=== PATIENT | female | born 1945 | race Caucasian/White ===

== ENCOUNTER → 2016-12-11 11:57 | Outpatient (CLI) | payer MEDICARE, OTHER ==
[2016-06-02 06:23] VITALS: BMI 28.5
[~2016-12-11 11:57] MED LIST: ACETAMINOPHEN500 M1 PO; ALBUTEROL2.5 MG/3 M UPD; AMBIEN10 MG PO; ARICEPT10 MG PO; ASPIRIN 81 MG E81 MG PO; ATARAX 25 MG TA25 MG PO; BAYER CHEWABLE81 MG PO; BENADRYL25 MG PO; BENZONATATE200 MG PO; CALAN SR240 MG PO; CATAPRES TTS-20.2 MG TRANSDERM; CATAPRES0.1 MG PO; CELEXA20 MG PO; COLACE100 MG PO; COUMADIN5 MG PO; DIOVAN160 MG PO; DIOVAN320 MG PO; DONEPEZIL HCL10 M1 PO; EFFEXOR25 MG PO; EFFEXOR50 MG PO; EXFORGE HCT 101 EAC2 PO; EZFE 200200 MG PO; FERROUS SULFAT325 MG PO; FEXOFENADINE HC60 MG PO; FLORAJEN3 CAPS460 MG PO; FLORANEX / LACT1 TAB PO; FLUTICASONE PRO16 GM NASAL; FOLATE0.4 MG PO; FUROSEMIDE20 MG PO; GABAPENTIN100 MG PO; HEPARIN SOD5000 U/ML SQ; HYDROCHLOROTH12.5 M1 PO; K-DUR20 MEQ PO; LASIX INJ40 MG/4 ML IV; LASIX INJ40 MG/4 ML PO; LASIX40 MG PO; LOPRESSOR50 MG PO; MESTINON60 MG PO; MIRALAX17 GM PO; MS CONTIN15 MG PO; MS CONTIN30 MG PO; MUCINEX DM ER1 EAC1 PO; MUCINEX600 MG PO; MULTI-DAY VITAM1 TAB PO; MULTIPLE VITAMI1 TA1 PO; MYRBETRIQ50 MG PO; NAMENDA XR28 MG PO; NEURONTIN 300300 MG PO; NORCO 10/325 TA1 TA1 PO; NORCO 5/325 TAB1 TA1 PO; NORVASC10 MG PO; NORVASC5 MG PO; NYSTATIN15 GM TOPICAL; OXYBUTYNIN CHLOR5 MG PO; OXYCODONE HCL10 MG PO; OXYCONTIN20 MG PO; PEPCID20 MG PO; PLAVIX75 MG PO; PRAVACHOL10 MG PO; PROTONIX40 MG PO; PULMICORT0.5 MG/21 UPD; RESTORIL15 MG PO; ROBAXIN-750750 MG PO; SALINE FLUSH10 ML IJ; SALINE NASAL SP45 ML NASAL; SENOKOT-S TABLE1 TAB PO; SINGULAIR10 MG PO; SYNTHROID50 MCG PO; VALIUM 2 MG TAB2 MG PO; VANCOMYCIN1 GM/2501 IV; ZYVOX PREMIX600 MG IV
== END | disposition home or self-care (01) ==
LOC: D.CT 11:57
DX: I71.4 Abdominal aortic aneurysm, without rupture (principal)

== ENCOUNTER → 2017-01-04 12:05 | Outpatient (CLI) | payer MEDICARE, OTHER ==
[2016-06-02 06:23] VITALS: BMI 28.5
== END | disposition home or self-care (01) ==
LOC: D.CT 12:05
DX: I71.4 Abdominal aortic aneurysm, without rupture (principal)

== ENCOUNTER 2017-01-13 02:03 | Inpatient (IN) | payer MEDICARE, OTHER ==
[~2017-01-13 02:03] MED LIST changes: -ALBUTEROL2.5 MG/3 M UPD; -BENZONATATE200 MG PO; -FEXOFENADINE HC60 MG PO; -FLORAJEN3 CAPS460 MG PO; -FLUTICASONE PRO16 GM NASAL; -K-DUR20 MEQ PO; -LASIX INJ40 MG/4 ML IV; -LASIX40 MG PO; -MS CONTIN30 MG PO; -MUCINEX DM ER1 EAC1 PO; -MYRBETRIQ50 MG PO; -NYSTATIN15 GM TOPICAL; -PROTONIX40 MG PO; -PULMICORT0.5 MG/21 UPD; -SALINE NASAL SP45 ML NASAL; -SINGULAIR10 MG PO
[2017-01-13 02:44] LABS: BASOPHILS 0.1 % (0.0-2.0); HEMATOCRIT 39.1 % (36.0-48.0); HEMOGLOBIN 12.3 g/dL (12-16); IMMATURE GRANULOCYTES 0.2 % (0-5); LYMPHOCYTES 15.9 % (15-50); MCH 29.9 pg (26.0-34.0); MCHC 31.5 g/dL (31.0-37.0); MCV 94.9 fL (80.0-100.0); MEAN PLATELET VOLUME 10.7 fL (7.4-10.4); MONOCYTES 12.2 % (2-11); NEUTROPHILS 70.6 % (40-80); PLATELET COUNT 173 10x3/uL (130-400); RBC 4.12 10x6/uL (4.00-5.40); RDW 14.7 % (11.5-14.5); WBC 10.2 10x3/uL (4.8-10.8)
[2017-01-13 02:59] LABS: ALBUMIN 2.9 g/dL (3.4-5.0); ANION GAP 10.8 mmol/L (8-16); BILIRUBIN - TOTAL 0.4 mg/dL (0.2-1.3); CALCIUM 8.5 mg/dL (8.5-10.1); CARBON DIOXIDE 28.2 mmol/L (21.0-32.0); CREATININE - SERUM 1.5 mg/dL (0.6-1.3); PROTEIN - SERUM 6.7 g/dL (6.4-8.2)
[2017-01-13] MEDS ORDERED: MYRBETRIQ50 MG PO (08:39)
[2017-01-14 04:36] LABS: BASOPHILS 0.1 % (0.0-2.0); EOSINOPHILS 0.1 % (0-7); HEMATOCRIT 36.4 % (36.0-48.0); HEMOGLOBIN 11.7 g/dL (12-16); IMMATURE GRANULOCYTES 0.2 % (0-5); LYMPHOCYTES 4.8 % (15-50); MCH 30.1 pg (26.0-34.0); MCHC 32.1 g/dL (31.0-37.0); MCV 93.6 fL (80.0-100.0); MEAN PLATELET VOLUME 10.8 fL (7.4-10.4); MONOCYTES 11.7 % (2-11); NEUTROPHILS 83.1 % (40-80); PLATELET COUNT 172 10x3/uL (130-400); RBC 3.89 10x6/uL (4.00-5.40); RDW 14.5 % (11.5-14.5); WBC 11.5 10x3/uL (4.8-10.8)
[2017-01-14 04:57] LABS: ALBUMIN 2.7 g/dL (3.4-5.0); ALKALINE PHOSPHATASE 83 U/L (46-116); ALT (SGPT) 14 U/L (10-68); BILIRUBIN - TOTAL 0.48 mg/dL (0.2-1.3); CALCIUM 8.4 mg/dL (8.5-10.1); CARBON DIOXIDE 26.8 mmol/L (21.0-32.0); CHLORIDE - SERUM 101 mmol/L (98-107); CREATININE - SERUM 1.4 mg/dL (0.6-1.3); GLUCOSE 143 mg/dL (74-106); PHOSPHOROUS 2.5 mg/dL (2.5-4.9); POTASSIUM - SERUM 3.9 mmol/L (3.5-5.1); PROTEIN - SERUM 6.9 g/dL (6.4-8.2); SODIUM 137 mmol/L (136-145); eGFR NON AFRICAN AMERICAN 39 mL/min (90-120)
[2017-01-14 04:58] LABS: CALC OSMOLALITY 276 mosm/kg (275-300); TROPONIN-I < 0.017 ng/mL (0.000-0.060); UREA NITROGEN 14 mg/dL (7-18)
[2017-01-15 04:50] LABS: BASOPHILS 0.2 % (0.0-2.0); HEMATOCRIT 34.4 % (36.0-48.0); IMMATURE GRANULOCYTES 0.1 % (0-5); LYMPHOCYTES 8.2 % (15-50); MCH 29.8 pg (26.0-34.0); MCV 93.2 fL (80.0-100.0); MEAN PLATELET VOLUME 10.7 fL (7.4-10.4); NEUTROPHILS 77.5 % (40-80); PLATELET COUNT 172 10x3/uL (130-400); RBC 3.69 10x6/uL (4.00-5.40); RDW 14.6 % (11.5-14.5)
[2017-01-15 05:09] LABS: WBC 8.6 10x3/uL (4.8-10.8)
[2017-01-15 05:32] LABS: ANION GAP 11.4 mmol/L (8-16); CALCIUM 8.3 mg/dL (8.5-10.1); CARBON DIOXIDE 27.3 mmol/L (21.0-32.0); CREATININE - SERUM 1.1 mg/dL (0.6-1.3); PHOSPHOROUS 2.4 mg/dL (2.5-4.9); POTASSIUM - SERUM 3.7 mmol/L (3.5-5.1)
[2017-01-16 05:39] LABS: BASOPHILS 0.2 % (0.0-2.0); EOSINOPHILS 3.3 % (0-7); HEMATOCRIT 35.8 % (36.0-48.0); HEMOGLOBIN 11.2 g/dL (12-16); IMMATURE GRANULOCYTES 0.2 % (0-5); MCH 29.6 pg (26.0-34.0); MCHC 31.3 g/dL (31.0-37.0); MCV 94.5 fL (80.0-100.0); MEAN PLATELET VOLUME 10.7 fL (7.4-10.4); MONOCYTES 13.8 % (2-11); NEUTROPHILS 73.5 % (40-80); PLATELET COUNT 194 10x3/uL (130-400); RBC 3.79 10x6/uL (4.00-5.40); RDW 14.8 % (11.5-14.5)
[2017-01-16 05:41] LABS: WBC 5.1 10x3/uL (4.8-10.8)
[2017-01-16 05:52] LABS: CALCIUM 8.3 mg/dL (8.5-10.1); CARBON DIOXIDE 29.4 mmol/L (21.0-32.0); MAGNESIUM - SERUM 2.2 mg/dL (1.8-2.4); POTASSIUM - SERUM 3.4 mmol/L (3.5-5.1)
[2017-01-16 06:00] LABS: PHOSPHOROUS 3.1 mg/dL (2.5-4.9)
[2017-01-16] MEDS ORDERED: DIOVAN320 MG PO (12:38)
[2017-01-17 03:43] LABS: BASOPHILS 0.2 % (0.0-2.0); EOSINOPHILS 6.6 % (0-7); HEMATOCRIT 36.7 % (36.0-48.0); HEMOGLOBIN 11.5 g/dL (12-16); IMMATURE GRANULOCYTES 0.4 % (0-5); LYMPHOCYTES 14.9 % (15-50); MCH 29.5 pg (26.0-34.0); MCHC 31.3 g/dL (31.0-37.0); MCV 94.1 fL (80.0-100.0); MEAN PLATELET VOLUME 9.9 fL (7.4-10.4); MONOCYTES 14.5 % (2-11); NEUTROPHILS 63.4 % (40-80); PLATELET COUNT 200 10x3/uL (130-400); RDW 14.7 % (11.5-14.5); WBC 4.6 10x3/uL (4.8-10.8)
[2017-01-17 04:11] LABS: ANION GAP 10.8 mmol/L (8-16); CALCIUM 8.2 mg/dL (8.5-10.1); CARBON DIOXIDE 28.4 mmol/L (21.0-32.0); CREATININE - SERUM 0.9 mg/dL (0.6-1.3); POTASSIUM - SERUM 3.2 mmol/L (3.5-5.1)
[2017-01-18 05:42] LABS: BASOPHILS 0.3 % (0.0-2.0); EOSINOPHILS 5.5 % (0-7); HEMATOCRIT 39.5 % (36.0-48.0); HEMOGLOBIN 12.4 g/dL (12-16); IMMATURE GRANULOCYTES 0.3 % (0-5); LYMPHOCYTES 14.1 % (15-50); MCH 29.4 pg (26.0-34.0); MCHC 31.4 g/dL (31.0-37.0); MCV 93.6 fL (80.0-100.0); MEAN PLATELET VOLUME 10.3 fL (7.4-10.4); MONOCYTES 11.1 % (2-11); NEUTROPHILS 68.7 % (40-80); PLATELET COUNT 238 10x3/uL (130-400); RBC 4.22 10x6/uL (4.00-5.40); RDW 14.7 % (11.5-14.5)
[2017-01-18 05:50] LABS: ANION GAP 11.9 mmol/L (8-16); CALCIUM 8.6 mg/dL (8.5-10.1); CARBON DIOXIDE 28.8 mmol/L (21.0-32.0); CREATININE - SERUM 0.9 mg/dL (0.6-1.3); MAGNESIUM - SERUM 2.3 mg/dL (1.8-2.4); PHOSPHOROUS 2.5 mg/dL (2.5-4.9)
[2017-01-18 05:52] LABS: POTASSIUM - SERUM 3.7 mmol/L (3.5-5.1)
[2017-01-19 06:19] LABS: BASOPHILS 0.6 % (0.0-2.0); EOSINOPHILS 7.3 % (0-7); HEMATOCRIT 39.7 % (36.0-48.0); HEMOGLOBIN 12.4 g/dL (12-16); IMMATURE GRANULOCYTES 0.5 % (0-5); LYMPHOCYTES 16.3 % (15-50); MCH 29.5 pg (26.0-34.0); MCHC 31.2 g/dL (31.0-37.0); MCV 94.5 fL (80.0-100.0); MEAN PLATELET VOLUME 9.9 fL (7.4-10.4); NEUTROPHILS 65.3 % (40-80); PLATELET COUNT 233 10x3/uL (130-400); RDW 14.7 % (11.5-14.5)
[2017-01-19 06:28] LABS: WBC 8.3 10x3/uL (4.8-10.8)
[2017-01-19 06:39] LABS: ALBUMIN 2.3 g/dL (3.4-5.0); ANION GAP 10.4 mmol/L (8-16); BILIRUBIN - TOTAL 0.27 mg/dL (0.2-1.3); CALCIUM 8.1 mg/dL (8.5-10.1); CARBON DIOXIDE 30.2 mmol/L (21.0-32.0); CREATININE - SERUM 0.9 mg/dL (0.6-1.3); POTASSIUM - SERUM 3.6 mmol/L (3.5-5.1); PROTEIN - SERUM 6.3 g/dL (6.4-8.2)
[2017-01-20 05:42] LABS: BASOPHILS 0.5 % (0-2); HEMATOCRIT 39.8 % (36.0-48.0); HEMOGLOBIN 12.6 g/dL (12-16); IMMATURE GRANULOCYTES 0.6 % (0-5); LYMPHOCYTES 17.4 % (15-50); MCH 29.7 pg (26.0-34.0); MCHC 31.7 g/dL (31.0-37.0); MCV 93.9 fL (80.0-100.0); MEAN PLATELET VOLUME 9.9 fL (7.4-10.4); MONOCYTES 7.7 % (2-11); NEUTROPHILS 66.8 % (40-80); PLATELET COUNT 244 10x3/uL (130-400); RBC 4.24 10x6/uL (4.00-5.40); RDW 14.8 % (11.5-14.5); WBC 9.4 10x3/uL (4.8-10.8)
[2017-01-20 06:27] LABS: ALBUMIN 2.4 g/dL (3.4-5.0); ANION GAP 9.5 mmol/L (8-16); BILIRUBIN - TOTAL 0.3 mg/dL (0.2-1.3); CALCIUM 8.4 mg/dL (8.5-10.1); CARBON DIOXIDE 30.9 mmol/L (21.0-32.0); CREATININE - SERUM 0.9 mg/dL (0.6-1.3); POTASSIUM - SERUM 3.4 mmol/L (3.5-5.1); PROTEIN - SERUM 6.6 g/dL (6.4-8.2)
[2017-01-21 05:52] LABS: BASOPHILS 0.3 % (0-2); EOSINOPHILS 6.7 % (0-7); HEMATOCRIT 41.2 % (36.0-48.0); HEMOGLOBIN 13.1 g/dL (12-16); IMMATURE GRANULOCYTES 0.6 % (0-5); LYMPHOCYTES 18.8 % (15-50); MCH 29.8 pg (26.0-34.0); MCHC 31.8 g/dL (31.0-37.0); MCV 93.6 fL (80.0-100.0); MONOCYTES 6.6 % (2-11); PLATELET COUNT 253 10x3/uL (130-400); RDW 14.9 % (11.5-14.5); WBC 9.8 10x3/uL (4.8-10.8)
[2017-01-21 06:23] LABS: ALBUMIN 2.5 g/dL (3.4-5.0); ANION GAP 10.9 mmol/L (8-16); BILIRUBIN - TOTAL 0.28 mg/dL (0.2-1.3); CALCIUM 8.5 mg/dL (8.5-10.1); CARBON DIOXIDE 30.8 mmol/L (21.0-32.0); CREATININE - SERUM 0.9 mg/dL (0.6-1.3); POTASSIUM - SERUM 3.7 mmol/L (3.5-5.1); PROTEIN - SERUM 6.9 g/dL (6.4-8.2)
[2017-01-22 06:27] LABS: ALBUMIN 2.8 g/dL (3.4-5.0); ANION GAP 12.7 mmol/L (8-16); BILIRUBIN - TOTAL 0.27 mg/dL (0.2-1.3); CALCIUM 8.6 mg/dL (8.5-10.1); CARBON DIOXIDE 30.4 mmol/L (21.0-32.0); CREATININE - SERUM 0.9 mg/dL (0.6-1.3); POTASSIUM - SERUM 4.1 mmol/L (3.5-5.1); PROTEIN - SERUM 6.7 g/dL (6.4-8.2)
[2017-01-22 06:40] LABS: BASOPHILS 0.2 % (0-2); EOSINOPHILS 6.5 % (0-7); HEMATOCRIT 42.1 % (36.0-48.0); HEMOGLOBIN 13.3 g/dL (12-16); IMMATURE GRANULOCYTES 0.6 % (0-5); LYMPHOCYTES 15.4 % (15-50); MCH 29.6 pg (26.0-34.0); MCHC 31.6 g/dL (31.0-37.0); MCV 93.6 fL (80.0-100.0); MEAN PLATELET VOLUME 10.3 fL (7.4-10.4); MONOCYTES 7.9 % (2-11); NEUTROPHILS 69.4 % (40-80); PLATELET COUNT 246 10x3/uL (130-400); RDW 14.8 % (11.5-14.5); WBC 8.6 10x3/uL (4.8-10.8)
[2017-01-23 06:05] LABS: BASOPHILS 0.4 % (0-2); EOSINOPHILS 7.4 % (0-7); HEMATOCRIT 41.2 % (36.0-48.0); HEMOGLOBIN 13.1 g/dL (12-16); IMMATURE GRANULOCYTES 0.6 % (0-5); LYMPHOCYTES 18.1 % (15-50); MCH 29.5 pg (26.0-34.0); MCHC 31.8 g/dL (31.0-37.0); MCV 92.8 fL (80.0-100.0); MONOCYTES 13.4 % (2-11); NEUTROPHILS 60.1 % (40-80); PLATELET COUNT 237 10x3/uL (130-400); RBC 4.44 10x6/uL (4.00-5.40); WBC 7.2 10x3/uL (4.8-10.8)
[2017-01-23 06:36] LABS: ALBUMIN 2.7 g/dL (3.4-5.0); ANION GAP 10.9 mmol/L (8-16); BILIRUBIN - TOTAL 0.3 mg/dL (0.2-1.3); CALCIUM 8.9 mg/dL (8.5-10.1); CREATININE - SERUM 0.9 mg/dL (0.6-1.3); POTASSIUM - SERUM 3.9 mmol/L (3.5-5.1); PROTEIN - SERUM 7.2 g/dL (6.4-8.2)
[2017-01-24 05:54] LABS: BASOPHILS 0.6 % (0-2); EOSINOPHILS 7.8 % (0-7); HEMATOCRIT 39.8 % (36.0-48.0); HEMOGLOBIN 12.5 g/dL (12-16); IMMATURE GRANULOCYTES 0.6 % (0-5); LYMPHOCYTES 24.8 % (15-50); MCH 29.5 pg (26.0-34.0); MCHC 31.4 g/dL (31.0-37.0); MCV 93.9 fL (80.0-100.0); MEAN PLATELET VOLUME 10.5 fL (7.4-10.4); NEUTROPHILS 53.2 % (40-80); PLATELET COUNT 244 10x3/uL (130-400); RBC 4.24 10x6/uL (4.00-5.40); RDW 15.1 % (11.5-14.5); WBC 6.5 10x3/uL (4.8-10.8)
[2017-01-24 06:15] LABS: ALBUMIN 2.6 g/dL (3.4-5.0); ANION GAP 11.3 mmol/L (8-16); BILIRUBIN - TOTAL 0.27 mg/dL (0.2-1.3); CALCIUM 8.8 mg/dL (8.5-10.1); CARBON DIOXIDE 29.6 mmol/L (21.0-32.0); POTASSIUM - SERUM 3.9 mmol/L (3.5-5.1)
[2017-01-24] MEDS ORDERED: FEXOFENADINE HC60 MG PO (12:57)
[2017-01-24] MEDS ORDERED: ALBUTEROL2.5 MG/3 M UPD ×2 (12:57)
[2017-01-24] MEDS ORDERED: MUCINEX DM ER1 EAC1 PO (12:59)
[2017-01-24] MEDS ORDERED: LASIX INJ40 MG/4 ML IV (12:59)
[2017-01-24] MEDS ORDERED: SINGULAIR10 MG PO (12:59)
[2017-01-24] MEDS ORDERED: BENZONATATE200 MG PO (13:00)
[2017-01-24] MEDS ORDERED: PROTONIX40 MG PO (13:00)
[2017-01-24] MEDS ORDERED: FLUTICASONE PRO16 GM NASAL (13:00)
[2017-01-24] MEDS ORDERED: SALINE NASAL SP45 ML NASAL (13:00)
[2017-01-24] MEDS ORDERED: MIRALAX17 GM PO (13:00)
[2017-01-24] MEDS ORDERED: FLORAJEN3 CAPS460 MG PO (13:00)
[2017-01-24] MEDS ORDERED: PULMICORT0.5 MG/21 UPD (13:00)
[2017-01-24] MEDS ORDERED: ARICEPT10 MG PO (13:01)
[2017-01-24] MEDS ORDERED: NYSTATIN15 GM TOPICAL (13:01)
[2017-01-24] MEDS ORDERED: MS CONTIN30 MG PO (14:52)
[2017-01-24] MEDS ORDERED: LASIX40 MG PO (17:25)
== END 2017-01-24 19:00 | DRG 189 ==
LOC: D.ER 02:03 → D.ICU 06:33 → D.MS 01-17 19:49
PROVIDERS: Emergency Medicine; Family Medicine; ADMIT Emergency Medicine
PROC: 0T9B70Z Drainage of Bladder with Drainage Device, Via Natural or Artificial Opening (ICD-10-PCS; principal; 2017-01-13)
PROC: 02HV33Z Insertion of Infusion Device into Superior Vena Cava, Percutaneous Approach (ICD-10-PCS; 2017-01-13)
DX: J96.01 Acute respiratory failure with hypoxia (principal); J15.4 Pneumonia due to other streptococci; J44.0 Chronic obstructive pulmonary disease with (acute) lower respiratory infection; J44.1 Chronic obstructive pulmonary disease with (acute) exacerbation; I13.0 Hypertensive heart and chronic kidney disease with heart failure and stage 1 through stage 4 chronic kidney disease, or unspecified chronic kidney disease; J98.11 Atelectasis; F41.9 Anxiety disorder, unspecified; F32.9 Major depressive disorder, single episode, unspecified; N18.9 Chronic kidney disease, unspecified; I50.9 Heart failure, unspecified; I25.10 Atherosclerotic heart disease of native coronary artery without angina pectoris; Z95.5 Presence of coronary angioplasty implant and graft; G70.00 Myasthenia gravis without (acute) exacerbation; B37.2 Candidiasis of skin and nail; I95.9 Hypotension, unspecified; E03.9 Hypothyroidism, unspecified; K21.9 Gastro-esophageal reflux disease without esophagitis; I65.23 Occlusion and stenosis of bilateral carotid arteries; I08.1 Rheumatic disorders of both mitral and tricuspid valves; I27.2 Other secondary pulmonary hypertension; Z86.718 Personal history of other venous thrombosis and embolism; Z86.73 Personal history of transient ischemic attack (TIA), and cerebral infarction without residual deficits; Z86.711 Personal history of pulmonary embolism; E87.6 Hypokalemia

== ENCOUNTER 2017-01-24 19:00 | Inpatient (IN) | payer MEDICARE, OTHER ==
[~2017-01-24] VITALS: Ht 168.9 cm; Wt 92.1 kg
[~2017-01-24 19:00] MED LIST changes: +ALBUTEROL2.5 MG/3 M UPD; +BENZONATATE200 MG PO; +FEXOFENADINE HC60 MG PO; +FLORAJEN3 CAPS460 MG PO; +FLUTICASONE PRO16 GM NASAL; +LASIX INJ40 MG/4 ML IV; +LASIX40 MG PO; +MS CONTIN30 MG PO; +MUCINEX DM ER1 EAC1 PO; +MYRBETRIQ50 MG PO; +NYSTATIN15 GM TOPICAL; +PROTONIX40 MG PO; +PULMICORT0.5 MG/21 UPD; +SALINE NASAL SP45 ML NASAL; +SINGULAIR10 MG PO
--- NOTE | 2017-01-24 19:10 | NUR ---
PT. HAS JUST ARRIVED FROM MED/SURG UNIT. EXPLAINED ADMIT PROCESS AND THAT I WOULD BE DOING HER ADMISSION ASSESSMENT AFTER ADMIT PAPERS ARE SIGNED. PT. ASKED WHEN THAT WOULD BE AND I EXPLAINED THAT IT WOULD BE AFTER THE ADMISSION OFFICE GOT HER ADMITTED TO OUR UNIT IN THE COMPUTER. PT. STATED SHE UNDERSTOOD. CALL LIGHT WITHIN REACH.
[2017-01-24 20:16] VITALS: BP 150/90
[2017-01-24 20:54] VITALS: BP 150/90; BMI 32.2
--- NOTE | 2017-01-24 23:05 | NUR ---
PT. IN BED WITH HOB UP FOR COMFORT WITH EYES CLOSED AND RESP. DEEP AND EVEN. CALL LIGHT WITHIN REACH.
[2017-01-24 23:48] VITALS: BP 150/90; Ht 168.9 cm; Wt 92.1 kg
--- NOTE | 2017-01-25 01:10 | NUR ---
PT. IN BED WITH HOB UP FOR COMFORT LYING ON HER LEFT SIDE WITH EYES CLOSED AND RESP. EVEN. CALL LIGHT WITHIN REACH.
[2017-01-25 07:14] LABS: BASOPHILS 0.2 % (0-2); EOSINOPHILS 5.6 % (0-7); HEMATOCRIT 41.8 % (36.0-48.0); HEMOGLOBIN 13.1 g/dL (12-16); IMMATURE GRANULOCYTES 0.4 % (0-5); MCH 29.5 pg (26.0-34.0); MCHC 31.3 g/dL (31.0-37.0); MCV 94.1 fL (80.0-100.0); MONOCYTES 7.3 % (2-11); NEUTROPHILS 64.5 % (40-80); PLATELET COUNT 217 10x3/uL (130-400); RBC 4.44 10x6/uL (4.00-5.40); RDW 14.7 % (11.5-14.5)
[2017-01-25 07:18] LABS: WBC 9.4 10x3/uL (4.8-10.8)
[2017-01-25 07:25] LABS: ANION GAP 9.4 mmol/L (8-16); CALCIUM 8.8 mg/dL (8.5-10.1); CARBON DIOXIDE 30.3 mmol/L (21.0-32.0); CREATININE - SERUM 1.1 mg/dL (0.6-1.3); POTASSIUM - SERUM 3.7 mmol/L (3.5-5.1)
--- NOTE | 2017-01-25 09:40 | NUR ---
PATIENT ADMITTED TO REHAB . DR. WILKINSON IS PATIENT PCP, SHE USES [facility]. PATIENT HAS WHEELCHAIR, BSC AND WALK IN TUB. SHE IS OF [place] AND SHE IS . PLANS ARE FOR HER TO RETURN HOME WITH HER SPOUSE. SHE HAS USED [facility] FOR HOME [facility]ALTH. WILL CONTINUE TO FOLLOW WITH PATIENT UNTIL DISCHARGED
[2017-01-25 18:54] VITALS: BP 178/93
--- NOTE | 2017-01-25 20:10 | NUR ---
CHINCHILLA UNCLAMPED, ALLOWED TIME FOR BLADDER TO DRAIN. PT DENIES PAIN. RECLAMPED CHINCHILLA. RESPIRATIONS SHALLOW, ENCOURAGED COUGHING AND DEEP BREATHING.
--- NOTE | 2017-01-26 01:38 | NUR ---
PT RESTING WITH EYES CLOSED, CHINCHILLA RECLAMPED AT 1230.
--- NOTE | 2017-01-26 04:30 | NUR ---
CHINCHILLA UNCLAMPED, URING DRAINING TO GRAVITY, PT RESTING WITH EYES CLOSED, RESPIRATION REGULAR AND UNLABORED.
--- NOTE | 2017-01-26 06:57 | NUR ---
RESTING QUIETLY IN BED CALL LIGHT IN REACH
[2017-01-26 07:20] LABS: BASOPHILS 0.3 % (0-2); EOSINOPHILS 5.5 % (0-7); HEMATOCRIT 40.8 % (36.0-48.0); HEMOGLOBIN 12.6 g/dL (12-16); IMMATURE GRANULOCYTES 0.1 % (0-5); LYMPHOCYTES 24.5 % (15-50); MCH 29.1 pg (26.0-34.0); MCHC 30.9 g/dL (31.0-37.0); MCV 94.2 fL (80.0-100.0); MEAN PLATELET VOLUME 10.4 fL (7.4-10.4); MONOCYTES 8.2 % (2-11); NEUTROPHILS 61.4 % (40-80); PLATELET COUNT 245 10x3/uL (130-400); RBC 4.33 10x6/uL (4.00-5.40); RDW 14.7 % (11.5-14.5); WBC 7.1 10x3/uL (4.8-10.8)
[2017-01-26 07:31] LABS: ANION GAP 12.1 mmol/L (8-16); CALCIUM 8.8 mg/dL (8.5-10.1); CARBON DIOXIDE 29.5 mmol/L (21.0-32.0); CREATININE - SERUM 0.9 mg/dL (0.6-1.3); POTASSIUM - SERUM 3.6 mmol/L (3.5-5.1)
--- NOTE | 2017-01-26 08:59 | RHP ---
PATIENT: SHARIF GRANT MEDICAL RECORD: [id number] ACCOUNT: [id number] LOCATION:[id number] : 45 ADMISSION DATE: 01/24/17 REHABILITATION HISTORY AND PHYSICAL EXAMINATION POST ADMISSION PHYSICIAN EXAMINATION Post-Admission Physical Examination and History and Physical DATE OF ADMISSION TO REHAB: 01/24/2017 ADMITTING DIAGNOSES: Community-acquired pneumonia in the right lower lobe and left upper lobe and streptococcal agalactiae. HISTORY OF PRESENT ILLNESS: The patient is admitted to inpatient rehab for community-acquired pneumonia in the right lower lobe and left upper lobe. She is a 71-year-old female patient, who developed cough, dyspnea and fever a couple days prior to acute admission to the hospital on January 13. She presented to the ED via EMS, was found to be hypotensive. On chest x-ray, she had a right lower lobe and left upper lobe pneumonia. She was placed on BiPAP secondary to hypoxia. She was started on vasopressors also for hypotension, admitted to the ICU. She lives at home with her , is independent with ADLs and mobility. She is moderately independent with her mobility. She is wheelchair bound, but transfer at moderately independent to a chair. She is weak and currently requires standby assistance to moderate assistance for ADLs and moderate assist to max assist for transfers and mobility. She and her is planning her returning home back to her prior level of functioning or better if possible. COMORBIDITIES: In this patient include oropharyngeal dysphagia, acute hypoxic respiratory failure, COPD, bilateral pleural effusions, hypotension, coronary artery disease, myasthenia gravis, atelectasis, got a history of mild CHF, chronic kidney disease, hypothyroidism, anemia, hypokalemia, debility and she is an ex-smoker. PAST MEDICAL HISTORY: Significant for a CVA with left-sided weakness, myasthenia gravis, hypertension, coronary artery disease, she has had stent placement in the past, and COPD. She has got a history of DVT and PE with IVC filter placement, gastroesophageal reflux disease, anxiety, depression, peripheral arterial disease, and chronic bronchitis. PAST SURGICAL HISTORY: Includes hysterectomy, right total knee times 2, right arm surgery, she has had bilateral carotids. She has had a total abdominal hysterectomy, left vein stripping, bilateral laser on the legs, right breast biopsy, bunion to her right foot, Karly shunt, inguinal hernia, and carotid endarterectomy. ALLERGIES: MEPERIDINE, ROCEPHIN, VANCOMYCIN, LISINOPRIL, PROCARDIA, ZOLOFT, IODINATED DYE AND ASPIRIN. CURRENT MEDICATIONS: Include Pravachol 10 mg daily. She is on Protonix 40 mg daily, multivitamin daily, Synthroid 50 mcg daily, Floranex 460 mg daily. She is on Lasix 40 mg daily, folic acid 0.8 mg daily, Flonase nasal spray 2 sprays daily, ferrous sulfate 325 mg daily, Plavix 75 mg daily, citalopram 20 mg daily, aspirin chewable 81 mg daily, amlodipine 10 mg daily, Effexor 150 mg b.i.d., Restoril 30 mg q.h.s., saline nasal spray ____ q.i.d. She is on Mestinon or pyridostigmine 90 mg t.i.d., MiraLax 17 grams in 8 ounces of water daily b.i.d., HISTORY AND PHYSICAL [id number] SHARIF GRANT Mycostatin cream as needed, and morphine CR 30 mg b.i.d. She is on Singulair 10 mg q.h.s., Mucinex b.i.d., Neurontin 200 mg t.i.d., Brittney 60 mg b.i.d., Aricept 20 mg q.h.s., Pulmicort 0.5 mg b.i.d., and Tessalon Perles 200 mg t.i.d. p.r.n. cough. She is on Ventolin updrafts as needed for shortness of breath. HABITS: Does have a history of tobacco use years ago. No alcohol use. FAMILY HISTORY: Noncontributory. SOCIAL HISTORY: The patient hopes to return back home and get back to her prior level of functioning or improved if possible with her . REVIEW OF SYSTEMS: GENERAL: Does complain of weakness. HEENT: Denies cold, cough or congestion at this time. CARDIOVASCULAR: Denies any chest pain. LUNGS: Does complain of a little bit shortness of breath with activity. PHYSICAL EXAMINATION: GENERAL: A morbidly obese female, in no acute distress, alert upon exam. HEENT: Normocephalic and atraumatic. Mucosa moist. NECK: Supple. No lymphadenopathy. LUNGS: Coarse breath sounds especially in the bases. CARDIOVASCULAR: Regular rate and rhythm. ABDOMEN: Benign. EXTREMITIES: Does have a little peripheral edema and noted weakness. NEUROLOGIC: The patient does have some confusion, but is easily redirected, does have noted weakness in both legs. LABORATORY DATA: White count is 9.4, H&H 13 and 41 and platelet count was noted to be 217. Her sodium is 142, potassium 3.7, BUN and creatinine of 19 and 1.1 and blood sugar was noted to be 108. ASSESSMENT: This is a 71-year-old female patient. who is admitted to rehab with a working diagnosis of community-acquired pneumonia in the right lower lobe and left upper lobe, also with noted muscular weakness and debility from being in the ICU with critical illness myopathy. The patient has potential to make improvement. The patient will need at least 2 of the following multidisciplinary therapies including to, but not limited to physical, occupational, respiratory, speech, nutritional services, prosthetics and orthotics. Given her complex condition and risk for medical complications, rehabilitation services cannot be provided at a low level of care such as a alf facility. PLAN: 1. Admit to [facility] rehab for intensive inpatient therapy to include the following disciplines: A. Physical therapy to improve gait, all transfer skills and bed mobility to a modified independent level. B. Occupational therapy to improve activities of daily living to a modified independent level. C. Case management to assist with discharge planning and placement options. D. Nutrition to assist with nutritional needs. E. Rehabilitation nursing to assist in monitoring the patient's underlying medical conditions and to assist with any type of bowel or bladder management. HISTORY AND PHYSICAL [id number] SHARIF GRANT 2. The patient's current medication and medical care will be continued. 3. The patient will be placed on standard fall precautions. 4. We will work with physical therapy, her transfers back to moderately independent. 5. We will discuss this patient during care team staff meeting this week. TRANSINT:[id number] Voice Confirmation ID: [id number] DOCUMENT ID: [id number] TICO OSMAN MD at 0859 CC: [id number] DICTATION DATE: 01/25/17 0758 DRIVER/REFUSE COLLECTOR: 01/25/17 1125 [place] [address]
--- NOTE | 2017-01-26 09:00 | NUR ---
PT NOTED IN BED. CHINCHILLA IS CLAMPED. PT HAS BEEN INCONT. OF A LARGE AMOUNT OF URINE. SHE DENIES HAVING ANY URGE TO VOID. INC. CARE GIVEN BY OT, AND NEW SCRUBS DONNED, BEFORE BEING TAKEN TO THERAPY GYM.
--- NOTE | 2017-01-26 10:06 | NUR ---
PT IS PARTICIPATING IN THERAPY AT THIS TIME. NO ACUTE DISTRESS NOTED.
[2017-01-26 10:41] VITALS: BP 159/89
--- NOTE | 2017-01-26 14:05 | NUR ---
PT IS RESTING IN BED BETWEEN THERAPY. NO NEEDS VOICED.
--- NOTE | 2017-01-26 17:26 | NUR ---
PT IS RESTING IN BED FEEDING SELF SUPPER WITHOUT DIFFICULTY. NO NEEDS VOICED.
[2017-01-26 18:52] VITALS: BP 126/71
--- NOTE | 2017-01-26 23:55 | NUR ---
CHINCHILLA CATH UNCLAMPED AND CLAMPED. PT RESTING QUIETLY, EYES CLOSED, NO S/S OF ACUTE DISTRESS.
--- NOTE | 2017-01-27 03:53 | NUR ---
PT RESTING QUIETLY, EYES CLOSED RESPIRATIONS REGULAR AND UNLABORED. NO S/S OF ACUTE DISTRESS.
--- NOTE | 2017-01-27 04:04 | NUR ---
CHINCHILLA CATH CLAMPED AND UNCLAMPED.
--- NOTE | 2017-01-27 05:36 | NUR ---
PT RESTING QUIELTY, EMPTIED CHINCHILLA, PT EYES REMAINED CLOSED.
--- NOTE | 2017-01-27 05:38 | NUR ---
UNCLAMPED, THEN RECLAMPED CHINCHILLA CATHETER BAG
[2017-01-27 07:00] VITALS: BP 174/74
--- NOTE | 2017-01-27 07:30 | NUR ---
PT IS UP IN THE GYM WITH THERAPY AT THIS TIME. NO ACUTE DISTRESS NOTED. BED CHANGED OUT.
--- NOTE | 2017-01-27 09:40 | NUR ---
PT IS RESTING IN BED AFTER THERAPY. NO NEEDS VOICED. ASSISTED TO BATHROOM PRN.
--- NOTE | 2017-01-27 12:44 | NUR ---
PT IS FEEDING SELF LUNCH IN HER ROOM. NO COMPLAINT VOICED.
--- NOTE | 2017-01-27 15:00 | NUR ---
PT IS PARTICIPATING IN THERAPY AT THIS TIME.
--- NOTE | 2017-01-27 18:05 | NUR ---
PT IS RESTING IN BED AFTER SUPPER. NO NEEDS VOICED.
--- NOTE | 2017-01-27 18:27 | NUR ---
RESTING QUIETLY IN BED CALL LIGHT IN REACH
[2017-01-27 19:14] VITALS: BP 157/76
--- NOTE | 2017-01-27 20:14 | NUR ---
PT RESTING QUIETLY IN ROOM, RESPIRATIONS REGULAR AND UNLABORED, NO S/S OF ACUTE DISTRESS. DENIES NEEDS.
--- NOTE | 2017-01-28 01:05 | NUR ---
ASSISTED PT TO BATHROOM VIA W/C, SLIGHT STRESS URINARY INCONTINENCE, BRIEF CHANGED. PT CONVERSIVE, PLEASANT. DENIES ANY NEEDS AT THIS TIME.
--- NOTE | 2017-01-28 04:14 | NUR ---
PT RESTING QUIETLY IN BED, RESPIRATIONS REGULAR AN UNLABORED.
--- NOTE | 2017-01-28 05:43 | NUR ---
ASSISTED PT TO BATHROOM, SATURATED IN URINE, VOIDED PER TOILET. MIN ASSIST WITH TRANSFER, MOD ASSIST WITH LOWER DRESSING, MOD ASSIST WITH UPPER DRESSING. FATIQUES WITH ACTIVITY
[2017-01-28 07:00] VITALS: BP 166/80
--- NOTE | 2017-01-28 07:30 | NUR ---
PT IS RESTING IN BED WITH EYES CLOSED. AWOKE EASILY TO VERBAL STIMULI. ALERT AND ORIENTED X 4. 02 IS ON @ 3LPM PER NC. NO SOB NOTED. SR'S ARE UP X 2 IN BED. CALL LIGHT AND BEDSIDE TABLE ARE WITHIN EASY REACH.
--- NOTE | 2017-01-28 09:49 | NUR ---
PT IS RESTING IN BED WITH EYES CLOSED.
--- NOTE | 2017-01-28 12:00 | NUR ---
PT IS FEEDING SELF LUNCH IN HER ROOM. NO NEEDS VOICED.
--- NOTE | 2017-01-28 14:54 | NUR ---
PT IS RESTING IN BED VISITING WITH HER . NO NEEDS VOICED.
--- NOTE | 2017-01-28 17:22 | NUR ---
PT IS FEEDING SELF SUPPER. NO DIFFICULTY NOTED. SPOUSE AT BEDSIDE.
--- NOTE | 2017-01-28 19:28 | NUR ---
PT RESTING IN SUPINE POSITION, RESTING QUIETLY, NO S/S OF ACUTE DISTRESS. RESPIRATIONS REGULAR AND UNLABORED.
[2017-01-28 19:34] VITALS: BP 152/89
--- NOTE | 2017-01-28 21:30 | NUR ---
PT STATES THAT PT REALLY HURTSAND SHE JUST WANTS TO DO WHAT THEY SAY SO SHE CAN GET OUT OF HERE. WILL LEAVE MESSAGE FOR PHYSICIAN REGARDING PAIN MANAGEMENT TO INCREASE TOLERANCE WITH PAIN DURING THERAPY.
--- NOTE | 2017-01-28 23:05 | NUR ---
PT INCONTINENT OF LARGE AMOUNT OF URINE, ASSISTED TO BATHROOM WITH MOD ASSIST,
--- NOTE | 2017-01-29 03:12 | NUR ---
PT RESTING QUIETLY, NO S/S OF ACUTE DISTRESS.
--- NOTE | 2017-01-29 06:59 | NUR ---
ASSISTED PT TO BATHROOM, PT HAD A BM THIS MORNING, PT IS CONCERNED ABOUT THE LOOSE STOOLS. DENIES ANY OTHER NEEDS.
--- NOTE | 2017-01-29 07:00 | NUR ---
PT WAS RECEIVED IN BED AWAKE AND ORIENTED X 3 AT THE BEGINNING OF THIS SHIFT. VITAL SIGNS; TEMP. 98.4, PULSE 73, RESP. 16, B/P 186/94, 02SAT. 93%. WILL BE MONITORING PT. AND ASSISTING PRN WITH ADL'S. CALL LIGHT IS IN REACH.
[2017-01-29 07:06] LABS: BASOPHILS 0.5 % (0-2); EOSINOPHILS 5.5 % (0-7); HEMATOCRIT 39.1 % (36.0-48.0); HEMOGLOBIN 12.3 g/dL (12-16); IMMATURE GRANULOCYTES 0.2 % (0-5); LYMPHOCYTES 19.7 % (15-50); MCH 29.4 pg (26.0-34.0); MCHC 31.5 g/dL (31.0-37.0); MCV 93.5 fL (80.0-100.0); MEAN PLATELET VOLUME 10.1 fL (7.4-10.4); MONOCYTES 10.6 % (2-11); NEUTROPHILS 63.5 % (40-80); PLATELET COUNT 245 10x3/uL (130-400); RBC 4.18 10x6/uL (4.00-5.40); RDW 14.4 % (11.5-14.5); WBC 6.6 10x3/uL (4.8-10.8)
[2017-01-29 07:19] LABS: ANION GAP 11.3 mmol/L (8-16); CALCIUM 8.9 mg/dL (8.5-10.1); CARBON DIOXIDE 31.7 mmol/L (21.0-32.0); CREATININE - SERUM 0.9 mg/dL (0.6-1.3)
[2017-01-29 08:47] VITALS: BP 186/94
--- NOTE | 2017-01-29 14:14 | NUR ---
DR. OSMAN ROUNDED THIS AM AND NEW ORDER RECEIVED FOR BREAKTHROUGH PAIN MEDICATION. NORCO 10MG WAS GIVEN AROUND 12:45PM PER REQUEST FOR ALL OVER DISCOMFORT. HER MIRALAX WAS HELD THIS AM DUE TO HAVING SEVERAL LOOSE STOOLS THE PAST FEW DAYS. PT AND HER ARE VISITING AT THIS TIME. PT. IS SITTING UP IN WHEELCHAIR IN ROOM. NO VOICED COMPLAINTS AT THIS TIME. WILL CONTINUE TO OBSERVE.
--- NOTE | 2017-01-29 18:31 | NUR ---
PT IS BACK TO BED AFTER GOING TO THE BATHROOM WITH ASSIST. CALL LIGHT IS IN REACH. 02PER NC BACK ON HER AT 3L/MIN. NO DISTRESS OR DISCOMFORT NOTED. PT STATES HER NAUSEA WENT AWAY AFTER TAKING THE ZOFRAN EARLIER.
[2017-01-29 18:43] VITALS: BP 166/84
--- NOTE | 2017-01-29 23:19 | NUR ---
PT RECEIVED IN BED WITH EYES OPEN WATCHING TV. STANDBY ASSIST GIVEN TO WHEELCHAIR AND TOILET. RETURNED TO BED. COMPLAINS OF 10/10 PAIN TO RIGHT KNEE. NO SIGN OF DISTRESS NOTED. PRN PAIN MEDICATION GIVEN. NO OTHER NEEDS MADE KNOWN AT THIS TIME. CALL LIGHT IN REACH. WILL CONTINUE TO OBSERVE.
--- NOTE | 2017-01-29 23:47 | NUR ---
PT IN BED WITH EYES CLOSED AND CHEST RISING. RECEIVED ALL MEDICATIONS PER MAR WITHOUT DIFFICULTY. ASSISTED TO RESTROOM. NO OTHER CONCERNS MADE KNOWN. CALL LIGHT IN REACH. WILL CONTINUE TO OBSERVE.
--- NOTE | 2017-01-30 02:39 | NUR ---
PT IN BED WITH EYES CLOSED AND CHEST RISING. NO SIGN/SYMPTOMS OF DISTRESS NOTED. CALL LIGHT IN REACH. WILL CONTINUE TO OBSERVE.
[2017-01-30 09:09] VITALS: BP 174/94
--- NOTE | 2017-01-30 19:55 | NUR ---
PT RESTING IN BED WATCHING TV. PT ON O2 AT 3L. PT STATES SHE HAS CHRONIC KNEE PAIN 04/09. PT DENIES NEEDS AT THIS TIME. BED LOW. CL IN REACH.
[2017-01-30 20:49] VITALS: BP 134/79
--- NOTE | 2017-01-30 22:00 | NUR ---
PT HS MEDS ADMINISTERED. PT ASSISTED TO BR. PT BACK IN BED AND DENIES FURTHER NEEDS. WCTM. BED LOW. CLIN REACH.
--- NOTE | 2017-01-30 23:39 | NUR ---
PT RESTING, EYES CLOSED. BED LOW. CL IN REACH.
--- NOTE | 2017-01-31 03:26 | NUR ---
PT RESTING, EYES CLOSED. RR ARE EVEN AND UNLABORED. WCTM. BED LOW. CL IN REACH.
--- NOTE | 2017-01-31 06:08 | NUR ---
PT AM MEDS ADMINISTERED. PT DENIES FURHTER NEEDS. BED LOW. CL INR EACH.
--- NOTE | 2017-01-31 07:03 | NUR ---
RESTING QUIETLY IN BED CALL LIGHT IN REACH
[2017-01-31 08:06] LABS: ANION GAP 8.2 mmol/L (8-16); CARBON DIOXIDE 33.1 mmol/L (21.0-32.0); POTASSIUM - SERUM 3.3 mmol/L (3.5-5.1)
[2017-01-31 08:08] LABS: BASOPHILS 0.2 % (0-2); EOSINOPHILS 4.1 % (0-7); HEMATOCRIT 40.6 % (36.0-48.0); HEMOGLOBIN 12.8 g/dL (12-16); IMMATURE GRANULOCYTES 0.2 % (0-5); LYMPHOCYTES 22.9 % (15-50); MCH 29.4 pg (26.0-34.0); MCHC 31.5 g/dL (31.0-37.0); MCV 93.3 fL (80.0-100.0); MEAN PLATELET VOLUME 10.6 fL (7.4-10.4); MONOCYTES 12.7 % (2-11); NEUTROPHILS 59.9 % (40-80); PLATELET COUNT 265 10x3/uL (130-400); RBC 4.35 10x6/uL (4.00-5.40); RDW 14.7 % (11.5-14.5); WBC 6.6 10x3/uL (4.8-10.8)
[2017-01-31] MEDS ORDERED: K-DUR20 MEQ PO (08:54)
--- NOTE | 2017-01-31 09:38 | NUR ---
PT IS RESTING IN BED WITH EYES OPEN. NO NEEDS VOICED. PT ANXIOUS TO DC HOME TODAY.
--- NOTE | 2017-01-31 10:17 | NUR ---
PATIENT DISCHARGING HOME WITH SPOUSE. [facility] WILL FOLLOW WITH PATIENT AT HOME. NO NEW DME NEEDED. PATIENT HAS WALKER, WHEELCHAIR AND SHOWER CHAIR AT HOME. DR. WILKINSON 02/07/17 @ 3:00. PATIENT CHOICE FORM FOR HOME HEALTH AND [facility] FORM SIGNED , EXPLAINED AND FILED IN CHART. PATIENT EDUCATED ON DEEP BREATHING EXERCISES, PATIENT VOICED UNDERSTANDING. ORDERES FAXED TO [facility] WITH CONFORMATION RECIEVED
--- NOTE | 2017-01-31 11:19 | NUR ---
DC INSTRUCTIONS GIVEN TO PT AND SPOUSE WITH VERBAL UNDERSTANDING VOICED. NEEDED MEDS CALLED TO [facility]. SPOKE WITH ANAIS.
--- NOTE | 2017-01-31 11:36 | NUR ---
PT DC'D TO HOME WITH ALL BELONGINGS. DEPARTED UNIT VIA WC PROPELLED BY STAFF. DEPARTED GROUNDS VIA POV DRIVEN BY HER SPOUSE.
== END 2017-01-31 11:37 | disposition home health service (06) | DRG 193 ==
LOC: D.REHAB 19:00
PROVIDERS: ADMIT Emergency Medicine
DX: J13 Pneumonia due to Streptococcus pneumoniae (principal); J96.01 Acute respiratory failure with hypoxia; J90 Pleural effusion, not elsewhere classified; R13.12 Dysphagia, oropharyngeal phase; J44.9 Chronic obstructive pulmonary disease, unspecified; I95.9 Hypotension, unspecified; I25.10 Atherosclerotic heart disease of native coronary artery without angina pectoris; G70.00 Myasthenia gravis without (acute) exacerbation; N18.9 Chronic kidney disease, unspecified; E03.9 Hypothyroidism, unspecified; D64.9 Anemia, unspecified; R53.81 Other malaise; Z87.891 Personal history of nicotine dependence; I71.4 Abdominal aortic aneurysm, without rupture; I65.23 Occlusion and stenosis of bilateral carotid arteries

== ENCOUNTER → 2017-02-19 08:31 | Outpatient (CLI) | payer MEDICARE, OTHER ==
[2017-01-24 23:48] VITALS: BMI 32.2
[~2017-02-19 08:31] MED LIST changes: +K-DUR20 MEQ PO
== END ==
LOC: D.MAMMO 08:31
DX: R92.8 Other abnormal and inconclusive findings on diagnostic imaging of breast (principal)

== ENCOUNTER 2017-05-19 13:53 | Inpatient (IN) | payer MEDICARE, OTHER ==
[~2017-05-19] VITALS: Ht 168.9 cm; Wt 98.2 kg
[~2017-05-19 13:53] MED LIST changes: -GABAPENTIN100 MG PO
[2017-05-19 14:45] LABS: BASOPHILS 0.1 % (0-2); EOSINOPHILS 0.2 % (0-7); HEMATOCRIT 44.6 % (36.0-48.0); HEMOGLOBIN 13.9 g/dL (12-16); IMMATURE GRANULOCYTES 0.2 % (0-5); LYMPHOCYTES 5.6 % (15-50); MCH 29.4 pg (26.0-34.0); MCHC 31.2 g/dL (31.0-37.0); MCV 94.3 fL (80.0-100.0); MEAN PLATELET VOLUME 10.6 fL (7.4-10.4); MONOCYTES 6.1 % (2-11); NEUTROPHILS 87.8 % (40-80); PLATELET COUNT 204 10x3/uL (130-400); RBC 4.73 10x6/uL (4.00-5.40); RDW 15.5 % (11.5-14.5); WBC 12.5 10x3/uL (4.8-10.8)
[2017-05-19 14:49] LABS: APPEARANCE CLEAR (CLEAR); BILIRUBIN NEGATIVE (NEGATIVE); COLOR YELLOW (YELLOW); GLUCOSE NEGATIVE (NEGATIVE); KETONE NEGATIVE (NEGATIVE); LEUKOCYTE ESTERASE NEGATIVE (NEGATIVE); NITRITE NEGATIVE (NEGATIVE); PROTEIN NEGATIVE (NEGATIVE); UROBILINOGEN NORMAL (NORMAL)
[2017-05-19 14:51] LABS: ALBUMIN 3.1 g/dL (3.4-5.0); ANION GAP 12.4 mmol/L (8-16); BILIRUBIN - TOTAL 0.53 mg/dL (0.2-1.3); CALCIUM 8.2 mg/dL (8.5-10.1); CARBON DIOXIDE 28.7 mmol/L (21.0-32.0); CREATININE - SERUM 1.5 mg/dL (0.6-1.3); POTASSIUM - SERUM 4.1 mmol/L (3.5-5.1); PROTEIN - SERUM 6.8 g/dL (6.4-8.2)
--- NOTE | 2017-05-19 17:04 | NUR ---
TRANSFER FROM ER BY STRETCHER. OREINTED TO ROOM. CALL LIGHT IN REACH. WILL CONT. PLAN OF CARE.
[2017-05-19 17:23] VITALS: BP 130/72; BMI 34.4
[2017-05-19] MEDS ORDERED: ROBAXIN-750750 MG PO (17:31)
[2017-05-19] MEDS ORDERED: PRAVASTATIN SOD10 MG PO (17:32)
[2017-05-19] MEDS ORDERED: NAMENDA XR28 MG PO (17:33)
[2017-05-19] MEDS ORDERED: DIOVAN320 MG PO (17:34)
[2017-05-19] MEDS ORDERED: FUROSEMIDE20 MG PO (17:35)
[2017-05-19] MEDS ORDERED: LEVOTHYROXINE50 MCG PO (17:35)
[2017-05-19] MEDS ORDERED: TEMAZEPAM30 MG PO (17:36)
[2017-05-19] MEDS ORDERED: HYDROCODONE-APA1 TAB PO (17:42)
[2017-05-19] MEDS ORDERED: PROTONIX40 MG PO (17:44)
[2017-05-19] MEDS ORDERED: MYCOSTATIN CREA15 GM TOPICAL (17:45)
[2017-05-19] MEDS ORDERED: ALENDRONATE SOD70 MG PO (17:46)
[2017-05-19 19:00] VITALS: BP 120/57
--- NOTE | 2017-05-19 19:31 | NUR ---
RESUMED CARE OF PT, LYING IN BED WITH EYES CLOSED RESPIRATIONS EVEN AND UNLABORED ON 11LPM VIA OXYMIZER. LEFT WRIST INFUSING NS @ 75. CHINCHILLA TO GRAVITY. 72 SR ON TELEMETRY. NO NEEDS NOTED AT THIS TIME, WILL CONTINUE TO MONITOR. SEE NURSE ASSESSMENT. CALL LIGHT IN REACH.
--- NOTE | 2017-05-19 22:14 | NUR ---
NIGHT MEDS GIVEN, NO NEEDS AT THIS TIME. CALL LIGHT IN REACH. WILL CONTINUE TO MONITOR.
[2017-05-20] VITALS: BP 127/65
--- NOTE | 2017-05-20 02:13 | NUR ---
LYING IN BED WITH EYES CLOSED, WILL CONTINUE TO MONITOR.
[2017-05-20 04:00] VITALS: BP 125/60
--- NOTE | 2017-05-20 06:19 | NUR ---
NO CHANGES FROM PREVIOUS ASSESSMENT, AM MEDS GIVEN. CALL LIGHT IN REACH.
--- NOTE | 2017-05-20 07:00 | NUR ---
RECEIVED REPORT. ASSUMED CARE OF PATIENT. CALL LIGHT WITHIN REACH. PATIENT WITH WET, NON PRODUCTIVE COUGH THIS AM. PATIENT STATES SHE JUST CANT GET ANYTHING OUT YET. CHINCHILLA CATH PATENT. DENIES NEEDS. IV FLUIDS INFUSING ORDERED. NO DISTRESS.
[2017-05-20 07:15] LABS: BASOPHILS 0.1 % (0-2); EOSINOPHILS 0.1 % (0-7); HEMOGLOBIN 12.2 g/dL (12-16); IMMATURE GRANULOCYTES 0.1 % (0-5); LYMPHOCYTES 7.2 % (15-50); MCH 29.5 pg (26.0-34.0); MCHC 32.1 g/dL (31.0-37.0); MONOCYTES 6.5 % (2-11); PLATELET COUNT 186 10x3/uL (130-400); RBC 4.14 10x6/uL (4.00-5.40); RDW 15.7 % (11.5-14.5); WBC 9.8 10x3/uL (4.8-10.8)
[2017-05-20 07:17] LABS: MCV 91.8 fL (80.0-100.0)
[2017-05-20 07:29] LABS: ALBUMIN 2.6 g/dL (3.4-5.0); ANION GAP 10.2 mmol/L (8-16); BILIRUBIN - TOTAL 0.5 mg/dL (0.2-1.3); CALCIUM 8.2 mg/dL (8.5-10.1); CARBON DIOXIDE 27.3 mmol/L (21.0-32.0); CREATININE - SERUM 1.3 mg/dL (0.6-1.3); POTASSIUM - SERUM 3.5 mmol/L (3.5-5.1); PROTEIN - SERUM 6.3 g/dL (6.4-8.2)
[2017-05-20 08:00] VITALS: BP 156/77
[2017-05-20 16:00] VITALS: BP 154/79
[2017-05-20 19:53] VITALS: BP 188/98
--- NOTE | 2017-05-20 19:57 | NUR ---
RESUMED CARE OF PT, LYING IN BED RESPIRATIONS EVEN AND UNLABORED ON 11LPM VIA OXYMIZER. 71 SR ON TELEMETRY. LEFT WRIST INFUSING NS @ 75. CHINCHILLA TO GRAVITY. UNCOMFORTABLE AT THIS TIME, STATES SHE DOESN'T FEEL LIKE SHE HAS RESTED AT ALL. WILL CONTINUE TO MONITOR. CALL LIGHT IN REACH. SEE NURSE ASSESSMENT.
[2017-05-21] VITALS: BP 137/76
--- NOTE | 2017-05-21 00:44 | NUR ---
LYING IN BED WITH EYES CLOSED, CALL LIGHT IN REACH. WILL CONTINUE TO MONITOR
[2017-05-21 04:00] VITALS: BP 131/69
[2017-05-21 04:49] LABS: BASOPHILS 0.1 % (0-2); EOSINOPHILS 3.6 % (0-7); HEMATOCRIT 38.8 % (36.0-48.0); HEMOGLOBIN 12.4 g/dL (12-16); IMMATURE GRANULOCYTES 0.2 % (0-5); LYMPHOCYTES 6.6 % (15-50); MCH 29.5 pg (26.0-34.0); MCV 92.2 fL (80.0-100.0); MONOCYTES 5.7 % (2-11); NEUTROPHILS 83.8 % (40-80); PLATELET COUNT 170 10x3/uL (130-400); RBC 4.21 10x6/uL (4.00-5.40); RDW 15.8 % (11.5-14.5)
[2017-05-21 05:20] LABS: ALBUMIN 2.5 g/dL (3.4-5.0); ANION GAP 12.4 mmol/L (8-16); BILIRUBIN - TOTAL 0.45 mg/dL (0.2-1.3); CARBON DIOXIDE 27.1 mmol/L (21.0-32.0); MAGNESIUM - SERUM 1.9 mg/dL (1.8-2.4); PHOSPHOROUS 2.5 mg/dL (2.5-4.9); POTASSIUM - SERUM 3.5 mmol/L (3.5-5.1); PROTEIN - SERUM 5.9 g/dL (6.4-8.2)
--- NOTE | 2017-05-21 06:36 | NUR ---
NO CHANGES FROM PREVIOUS ASSESSMENT, CALL LIGHT IN REACH. BED BATH AND LINENS CHANGED.
--- NOTE | 2017-05-21 07:25 | NUR ---
ASSESSMENT COMPLETED.O2 AT 11 L/M OXMIZER. NS AT 75 INFUSING INTO LEFT WRIST. CHINCHILLA CATH PATENT TO GRAVITY BAG. TELEMERTY SHOWS SR 80. SR UP WITH CALL LIGHT IN REACH. WILL MONITOR
[2017-05-21 08:00] VITALS: BP 127/73
--- NOTE | 2017-05-21 10:56 | NUR ---
PT AWAKE EXPECTORATED APROXX 4CC OF RED TINGED MUCUS. WILL NOTIFY NURSE.
--- NOTE | 2017-05-21 12:59 | NUR ---
UP IN CHAIR PER PT. IV PULLED OUT. IV NURSE TO PUT IN A MID GRINDSTONE
[2017-05-21] MEDS ORDERED: CELEXA20 MG PO (14:06)
[2017-05-21 14:51] VITALS: Ht 168.9 cm; Wt 98.2 kg
[2017-05-21 19:00] VITALS: BP 149/88
--- NOTE | 2017-05-21 19:10 | NUR ---
JONY GARCIAS ACCESS NURSE AT BED SIDE, MIDLINE PLACED TO RIGHT UPPER ARM.
--- NOTE | 2017-05-21 21:43 | NUR ---
SPOKE WITH BIANCA GIRON, INFORMED HER THAT PT IS ASKING IF SHE CAN TAKE HER HOME DOSE OF RESTORIL 30 MG. BIANCA STATED THAT DUE TO THE PT BEING SO LETHARGIC WHEN THEY MADE ROUNDS EARLIER TODAY THAT THEY HAVE HER RESTORIL ON HOLD BUT MAY GIVE HER SOME MELATONIN.
[2017-05-22] VITALS (9 sets, daily range): BP systolic 132–180; BP diastolic 52–97
--- NOTE | 2017-05-22 03:29 | NUR ---
RESTING WITH EYES CLOSED, RESPERATIONS EVEN, NO S/S DISTRESS NOTED.
--- NOTE | 2017-05-22 03:47 | NUR ---
RESTING IN BED WITH NO DISTRESS. RESPS EVEN/NONLABORED. CALL LIGHT IN REACH. CPOC.
--- NOTE | 2017-05-22 04:29 | NUR ---
PT CLEANED AND BEDDING CHANGED, PT INCONTINENT OF BOWEL.
[2017-05-22 06:49] LABS: BASOPHILS 0.1 % (0-2); EOSINOPHILS 7.2 % (0-7); HEMATOCRIT 40.4 % (36.0-48.0); HEMOGLOBIN 12.8 g/dL (12-16); IMMATURE GRANULOCYTES 0.2 % (0-5); MCH 28.7 pg (26.0-34.0); MCHC 31.7 g/dL (31.0-37.0); MCV 90.6 fL (80.0-100.0); MEAN PLATELET VOLUME 10.6 fL (7.4-10.4); MONOCYTES 7.1 % (2-11); NEUTROPHILS 77.4 % (40-80); RBC 4.46 10x6/uL (4.00-5.40); RDW 15.7 % (11.5-14.5); WBC 8.9 10x3/uL (4.8-10.8)
[2017-05-22 06:53] LABS: PLATELET COUNT 215 10x3/uL (130-400)
[2017-05-22 07:11] LABS: ALBUMIN 2.5 g/dL (3.4-5.0); ANION GAP 13.2 mmol/L (8-16); BILIRUBIN - TOTAL 0.51 mg/dL (0.2-1.3); CALCIUM 8.4 mg/dL (8.5-10.1); CARBON DIOXIDE 24.8 mmol/L (21.0-32.0); CREATININE - SERUM 0.9 mg/dL (0.6-1.3); PROTEIN - SERUM 6.5 g/dL (6.4-8.2)
--- NOTE | 2017-05-22 07:15 | NUR ---
RESTING QUIETYLY RESP UNLABORED NAD NOTED
--- NOTE | 2017-05-22 07:35 | NUR ---
ASSESSMENT COMPLETED. TELEMERTY SHOWS SR . O2 AT 15 L/M PER OXIMIZER. MIDLINE IV TO RIGHT ARM PATENT. CHINCHILLA CATH TO BEDSIDE DRAINAGE BAG. . DENIES ANY NEEDS. SR UP WITH CALL LIGHT IN REACH.
[2017-05-22 08:02] LABS: INR 1.15 (0.85-1.17); PROTIME 14.6 SECONDS (11.6-15.0)
[2017-05-22 08:03] LABS: APTT 31.9 SECONDS (22.8-39.4)
--- NOTE | 2017-05-22 09:31 | NUR ---
BLOOD GAS OBTAINED VIA LEFT RADIAL ARTERY PO2 44 CRITICAL LEVEL NURSE ARY NOTIFIED INCREASED ON TO 15L FLUSH TO OXIMIXER. PT SPO2 ON 15L 91%. EXPIRATORY WHEEZES AND CRACKLES NOTED TO APICIES OF LUNGS.
--- NOTE | 2017-05-22 10:00 | NUR ---
TO SPECIALS PER BED
--- NOTE | 2017-05-22 11:00 | NUR ---
BACK TO ROOM. V/S STSBLE. SMALL DRSG TO RIGHT SIDE OF BACK. NO BLEEDING. DENIES ANY NEEDS. STATED SHES FEELING MUCH BETTER
[2017-05-22 11:58] LABS: PROTEIN - BODY FLUID 1.7 G/DL
[2017-05-22 14:28] LABS: LYMPH - BF 8 %; MACROPHAGES BF 16 %; NEUT - BF 76 %
--- NOTE | 2017-05-22 20:53 | NUR ---
SPUTUM SPECIMEN COLLECTED AND TAKEN TO LAB.
--- NOTE | 2017-05-22 21:57 | NUR ---
HS MEDS GIVEN WITH FRESH ICE WATER. NORCO 1 TAB GIVEN FOR C/O PAIN.
--- NOTE | 2017-05-22 22:46 | NUR ---
HELPER METAL HANGING AT BED SIDE, PT INCONTINENT OF BOWEL.
[2017-05-23 04:00] VITALS: BP 168/81
--- NOTE | 2017-05-23 04:21 | NUR ---
RESTING WITH EYES CLOSED, RESPERATIONS EVEN, NO S/S DISTRESS NOTED.
[2017-05-23 06:23] LABS: BASOPHILS 0.1 % (0-2); EOSINOPHILS 9.6 % (0-7); HEMATOCRIT 43.3 % (36.0-48.0); HEMOGLOBIN 13.9 g/dL (12-16); IMMATURE GRANULOCYTES 0.4 % (0-5); LYMPHOCYTES 7.9 % (15-50); MCHC 32.1 g/dL (31.0-37.0); MCV 90.2 fL (80.0-100.0); MEAN PLATELET VOLUME 10.6 fL (7.4-10.4); MONOCYTES 8.9 % (2-11); NEUTROPHILS 73.1 % (40-80); PLATELET COUNT 248 10x3/uL (130-400); RDW 15.7 % (11.5-14.5); WBC 7.9 10x3/uL (4.8-10.8)
[2017-05-23 06:50] LABS: ALBUMIN 2.6 g/dL (3.4-5.0); BILIRUBIN - TOTAL 0.56 mg/dL (0.2-1.3); CALCIUM 8.4 mg/dL (8.5-10.1); CARBON DIOXIDE 28.9 mmol/L (21.0-32.0); PROTEIN - SERUM 6.8 g/dL (6.4-8.2)
[2017-05-23 06:51] LABS: ANION GAP 12.1 mmol/L (8-16)
--- NOTE | 2017-05-23 07:30 | NUR ---
AM ROUNDS- PT IN BED, DENIES ANY NEEDS AT THIS TIME. MANAGER CCU AT BEDSIDE TO DO VITAL SIGNS. GENERALIZED REDNESS NOTED. BED LOW AND WHEELS LOCKED, BEDSIDE RAILS X2, CALL LIGHT IN REACH, RT MIDLINE INFUSING AT KVO. RESP EVEN AND UNLABORED ON 15L OXIMIZER. NAD NOTED, WILL CONTINUE TO MONITOR.
--- NOTE | 2017-05-23 08:56 | NUR ---
AM MEDS GIVEN, PT IN BED, EATING BREAKFAST, DENIES ANY NEEDS AT THIS TIME. HOUSEKEEPING AT BEDSIDE TO CLEAN ROOM. CALL LIGHT IN REACH, NAD NOTED, WILL CONTINUE TO MONITOR.
[2017-05-23 09:00] VITALS: BP 177/72
[2017-05-23 13:16] LABS: FUNGUS STAIN Final report (())
--- NOTE | 2017-05-23 14:33 | NUR ---
NORCO 5MG GIVEN FOR PAIN LEVEL OF 10/10 TO RT LEG. PT DENIES ANY OTHER NEEDS AT THIS TIME. CALL LIGHT IN REACH, FAMILY AT BEDSIDE, [place], WILL CONTINUE TO MONITOR.
[2017-05-23 16:00] VITALS: BP 157/93
[2017-05-23 19:00] VITALS: BP 182/94
[2017-05-23 19:11] LABS: ACID FAST SMEAR Negative (()); AFB SPECIMEN PROCESSING Not Indicated (())
--- NOTE | 2017-05-23 21:14 | NUR ---
HS MEDS GIVEN WITH FRESH ICE WATER. NORCO 1 TAB GIVEN FOR C/O PAIN, RATES PAIN AT AN 8 ON PAIN SCALE. RESTORIL 15 MG 1 TAB GIVEN AT PT REQUEST TO ASSIST WITH REST.
--- NOTE | 2017-05-24 01:31 | NUR ---
CALL LIGHT IN REACH, WILL CONTINUE WITH PLAN OF CARE.
[2017-05-24 04:00] VITALS: BP 160/76
[2017-05-24 05:19] LABS: BASOPHILS 0.4 % (0-2); EOSINOPHILS 10.4 % (0-7); HEMATOCRIT 44.8 % (36.0-48.0); HEMOGLOBIN 14.5 g/dL (12-16); IMMATURE GRANULOCYTES 0.5 % (0-5); LYMPHOCYTES 12.8 % (15-50); MCH 29.2 pg (26.0-34.0); MCHC 32.4 g/dL (31.0-37.0); MCV 90.1 fL (80.0-100.0); MEAN PLATELET VOLUME 10.6 fL (7.4-10.4); MONOCYTES 11.8 % (2-11); NEUTROPHILS 64.1 % (40-80); PLATELET COUNT 234 10x3/uL (130-400); RBC 4.97 10x6/uL (4.00-5.40); RDW 15.8 % (11.5-14.5); WBC 7.6 10x3/uL (4.8-10.8)
[2017-05-24 05:55] LABS: ALBUMIN 2.7 g/dL (3.4-5.0); ANION GAP 12.3 mmol/L (8-16); BILIRUBIN - TOTAL 0.4 mg/dL (0.2-1.3); CALCIUM 8.4 mg/dL (8.5-10.1); CREATININE - SERUM 0.8 mg/dL (0.6-1.3); POTASSIUM - SERUM 3.3 mmol/L (3.5-5.1); PROTEIN - SERUM 6.5 g/dL (6.4-8.2)
--- NOTE | 2017-05-24 07:17 | NUR ---
AM ROUNDS- PT IN BED, DENIES ANY NEEDS AT THIS TIME. CHINCHILLA EMPTIED TOTAL OUTPUT WAS 1300. BED LOW AND WHEELS LOCKED, BEDSIDE RAILS X2, RESP EVEN AND UNLABORED ON 15L OXIMIZER. RT UPPER ARM MIDLINE INFUSING NS AT KVO. CALL LIGHT IN REACH, NAD NOTED, WILL CONTINUE TO MONITOR.
[2017-05-24 08:00] VITALS: BP 148/77
--- NOTE | 2017-05-24 08:48 | NUR ---
AM MEDS GIVEN AT THIS TIME, AND PROVIDED INCONT CARE, AND REPOSITIONED PT IN BED. PT DENIES ANY OTHER NEEDS AT THIS TIME. CALL LIGHT IN REACH, NAD NOTED, WILL CONTINUE TO MONITOR.
--- NOTE | 2017-05-24 11:30 | NUR ---
5MG OF NORCO GIVEN FOR PAIN LEVEL OF 10/10. ALSO CLEANED PT UP FROM INCONT EPISODE, NAD NOTED, FAMILY AT BEDSIDE, WILL CONTINUE TO MONITOR.
[2017-05-24 12:00] VITALS: BP 156/87
--- NOTE | 2017-05-24 13:32 | NUR ---
Nutrition follow-up: Diet: Low sodium PO intake ~50% of meals Labs reviewed +BM Wt: 222# RDN following.
--- NOTE | 2017-05-24 14:30 | NUR ---
Patient Name: SHARIF GRANT Admission Status: ER Accout number: [id number] Admission Date: 05-19-2017 : 1945 Admission Diagnosis:SHORTNESS OF BREATH Attending: ANDRES WILKINSON Current LOS: 5 Anticipated DC Date: Planned Disposition: Primary Insurance: MEDICARE A & B Discharge Planning Comments: CM MET WITH PATIENT AND HER SPOUSE ABOUT DISCHARGE PLANNING/NEEDS. PATIENT LIVES AT HOME WITH HER SPOUSE AND THIS IS WHERE SHE PLANS TO RETURN. SHE CURRENTLY USES A WHEELCHAIR FOR ALL MOBILITY. SHE SAID HER SPOUSE, DON, [phone] OR [phone] WILL BE HER TRANSPORTATION HOME. SHE HAS USED [facility] IN THE PAST, BUT NOT AT THIS TIME. BOTH DENY ANY PROJECTED NEEDS AT THIS TIME. [facility] WILL FOLLOW AND ADDRESS NEEDS THEY ARISE. Vending Machine Repairer: Aysha Bonds Is the patient Alert and Oriented? Yes * How many steps to enter\exit or inside your home? RAMP * PCP DR WILKINSON * Pharmacy [facility] * Preadmission Environment Home with Family * ADLs Partial Dependent * Partial ADLs (Assistance needed) Ambulation Bathing Transfers * Equipment Bedside Commode Rolling Walker Walker Wheelchair * Other Equipment LIFT CHAIR WALK IN TUB * List name and contact numbers for known caregivers / representatives who currently or will assist patient after discharge: BORIS GRANT, SPOUSE, [place] [phone] * Please name any agencies selected above. HAS USED [facility] IN THE PAST. * Additional services required to return to the preadmission environment? No * Can the patient safely return to the preadmission environment? Yes * Has this patient been hospitalized within the prior 30 days at any hospital? No
[2017-05-24 15:36] VITALS: BP 152/79
[2017-05-24 19:00] VITALS: BP 148/68
--- NOTE | 2017-05-24 19:00 | NUR ---
REC REPORT, ASSUMED CARE OF PATIENT. ALERT/AWAKE DENIES ANY NEEDS. ON OX AT 15L/OXIMIZER. CHINCHILLA INTACT/PATENT. ORIENTED TO CL FOR ANY NEEDS.
--- NOTE | 2017-05-24 22:20 | NUR ---
FORMING DEPARTMENT SUPERVISOR'S ASSISTING OFF BEDPAN. ADMIN NORCO PO FOR C/O PAIN LEVEL 9 ON NUMBER SCALE OF RT KNEE, DESCRIBED THROBBING.
[2017-05-25] VITALS: BP 152/73
--- NOTE | 2017-05-25 04:30 | NUR ---
RESTING WITH EYES CLOSED. NO CHANGES NOTED. CL IN REACH.
--- NOTE | 2017-05-25 07:26 | NUR ---
DECREASED TO 4L OXIMYZER
--- NOTE | 2017-05-25 07:51 | NUR ---
PT SITTING UP IN BED SLEEPING NO S/S DISTRESS NOTED RR EVEN AND UNLABORED
[2017-05-25 08:00] VITALS: BP 168/67
[2017-05-25 12:25] VITALS: BP 143/77
[2017-05-25 13:48] LABS: BASOPHILS 0.6 % (0-2); EOSINOPHILS 3.9 % (0-7); HEMATOCRIT 45.6 % (36.0-48.0); HEMOGLOBIN 14.8 g/dL (12-16); IMMATURE GRANULOCYTES 0.4 % (0-5); LYMPHOCYTES 12.2 % (15-50); MCH 29.5 pg (26.0-34.0); MCHC 32.5 g/dL (31.0-37.0); MEAN PLATELET VOLUME 10.2 fL (7.4-10.4); MONOCYTES 7.8 % (2-11); NEUTROPHILS 75.1 % (40-80); PLATELET COUNT 259 10x3/uL (130-400); RBC 5.01 10x6/uL (4.00-5.40); RDW 15.9 % (11.5-14.5)
[2017-05-25 13:59] LABS: ANION GAP 12.1 mmol/L (8-16); CALCIUM 9.1 mg/dL (8.5-10.1); POTASSIUM - SERUM 3.1 mmol/L (3.5-5.1)
[2017-05-25 14:01] LABS: CREATININE - SERUM 1.1 mg/dL (0.6-1.3)
--- NOTE | 2017-05-25 14:04 | NUR ---
PLACED PT ON 4L NC WITH HUMIDITY. SP02 94%
[2017-05-25 16:24] VITALS: BP 148/71
[2017-05-25 19:00] VITALS: BP 153/73
--- NOTE | 2017-05-25 19:27 | NUR ---
PT IS RESTING IN BED WATCHING TV. ALERT AND ORIENTED X 3. DENIES PAIN OR DISCOMFORT AT THIS TIME. NO SOB NTOED. O2 IS ON @ 15 LMP PER OXIMIZER. TELEMETRY UNIT IS ON AND INTACT. CHINCHILLA CATH IS PATENT AND DRAINING TO A GRAVITY BAG. RFA IV NOTED. NO REDNESS OR EDEMA NOTED AT THE INSERTION SITE. SR'S ARE UP X 2 IN BED. CALL LIGHT AND BEDSIDE TABLE ARE WITHIN EASY REACH.
--- NOTE | 2017-05-25 22:11 | NUR ---
PT IS RESTING QUIETLY IN BED WITH EYES CLOSED. RESPS ARE EVEN AND UNLABORED. NO ACUTE DISTRESS NOTED.
--- NOTE | 2017-05-25 22:59 | NUR ---
PT RESTING WITH EYES CLOSED. RESP EVEN AND REGULAR. SR UP X2, CALL LIGHT WITHIN REACH.
[2017-05-26] VITALS: BP 144/88
--- NOTE | 2017-05-26 03:00 | NUR ---
PT IS RESTING QUIETLY IN BED WITH EYES CLOSED. RESPS ARE EVEN AND UNLABORED. NO ACUTE DISTESS NOTED.
[2017-05-26 04:00] VITALS: BP 154/86
[2017-05-26 05:51] LABS: BASOPHILS 1.3 % (0-2); HEMATOCRIT 44.5 % (36.0-48.0); HEMOGLOBIN 14.2 g/dL (12-16); IMMATURE GRANULOCYTES 0.4 % (0-5); LYMPHOCYTES 18.3 % (15-50); MCHC 31.9 g/dL (31.0-37.0); MEAN PLATELET VOLUME 10.9 fL (7.4-10.4); MONOCYTES 8.9 % (2-11); NEUTROPHILS 64.1 % (40-80); PLATELET COUNT 249 10x3/uL (130-400); RBC 4.89 10x6/uL (4.00-5.40); RDW 15.9 % (11.5-14.5); WBC 11.1 10x3/uL (4.8-10.8)
--- NOTE | 2017-05-26 06:00 | NUR ---
PT IS RESTING IN BED WITH EYES CLOSED. AWOKE EASILY TO VERBAL STIMULI. TOLERATED AM MEDS WITHOUT DIFFICULTY.
[2017-05-26 06:06] LABS: ANION GAP 10.4 mmol/L (8-16); CALCIUM 8.8 mg/dL (8.5-10.1); CARBON DIOXIDE 29.4 mmol/L (21.0-32.0); PHOSPHOROUS 3.6 mg/dL (2.5-4.9)
[2017-05-26 06:07] LABS: POTASSIUM - SERUM 2.8 mmol/L (3.5-5.1)
--- NOTE | 2017-05-26 07:58 | NUR ---
PT AWAKENS EASILY TO VERBAL STIMULI DENIES NEEDS AT THIS TIME IV TO RIGHT FOREARM MIDLINE PATENT AND INTACT AT THIS TIME SRX2 BED AT LOWEST SETTING CALL LIGHT WITHIN REACH WILL CONTINUE TO MONITOR
[2017-05-26 08:49] VITALS: BP 177/100
[2017-05-26 13:18] VITALS: BP 167/89
[2017-05-26 20:23] VITALS: BP 166/90
--- NOTE | 2017-05-26 22:46 | NUR ---
INITIAL ROUNDS COMPLETED AT 1920 HRS. PT HAD C/O L EG PAIN. NORCO PO GIVEN AT 1950 HRS. ASSESSMENT COMPLETED AT THAT TIME. VSS. SR PER CM HR 86. O2 3LNC. IV TO RAC MIDLINE WITH NS AT 10CC/HR. IV PATENT. LUNGS DIMINISHED IN BASES BILAT. BRUISE NOTED TO L HAND/WRIST. LIGHT RASH NOTED TO UPPER BACK. CHINCHILLA DRAINING YELLOW URINE. PM MEDS GIVNE INCLUDING RESTORIL 15MG PO PER PT REQUEST. PT WAS THIN INCONTNENT OF SMALL AMOUNT OF STOOL. INCONTINENT CARE DONE. K_ RESULST BACK OF 3.4, KCL 40 MEQ IN 180CC OF APPLE JUICE GIVEN PER ELECTROLYTE PROTOCOL. PT CURRENTLY RESTING WITH EYES CLOSED. RESP EVEN AND REGULAR. SR UP X2, CALL LIGHT WITHIN REACH AND BED ALARM ON.
--- NOTE | 2017-05-27 00:50 | NUR ---
PT RESTING WITH EYES CLOSED. RESP EVEN AND REGULAR. SR UP X2, CALL LIGHT WITHIN REACH.
[2017-05-27 01:29] VITALS: BP 161/86
--- NOTE | 2017-05-27 02:13 | NUR ---
PT RESTING WITH EYES CLOSED. RESP EVEN AND REGULAR. SR UP X2, CALL LIGHT WITHIN REACH.
--- NOTE | 2017-05-27 04:59 | NUR ---
PT AWAKE; DENIES ANY DISCOMFORT. WILL CONTINUE TO MONITOR.
[2017-05-27 05:22] LABS: BASOPHILS 0.5 % (0-2); EOSINOPHILS 7.9 % (0-7); HEMATOCRIT 42.6 % (36.0-48.0); HEMOGLOBIN 13.6 g/dL (12-16); IMMATURE GRANULOCYTES 0.3 % (0-5); LYMPHOCYTES 18.3 % (15-50); MCH 29.1 pg (26.0-34.0); MCHC 31.9 g/dL (31.0-37.0); MCV 91.2 fL (80.0-100.0); MEAN PLATELET VOLUME 10.6 fL (7.4-10.4); PLATELET COUNT 242 10x3/uL (130-400); RBC 4.67 10x6/uL (4.00-5.40); RDW 15.9 % (11.5-14.5); WBC 9.4 10x3/uL (4.8-10.8)
[2017-05-27 05:43] LABS: ANION GAP 13.1 mmol/L (8-16); CALCIUM 9.1 mg/dL (8.5-10.1); CARBON DIOXIDE 28.5 mmol/L (21.0-32.0); POTASSIUM - SERUM 3.6 mmol/L (3.5-5.1)
[2017-05-27 05:44] VITALS: BP 171/99
--- NOTE | 2017-05-27 06:34 | NUR ---
VSS THROUGHUOT NIGHT. SR PER CM. PT STATED SHE RESTED WELL WITH RESTORIL. NEEDS MET;WILL CONTINUE TO MONITOR.
--- NOTE | 2017-05-27 07:52 | NUR ---
AM ROUNDING DONE WITH NO NEEDS VOICED BY PATIENT AT THIS PRESENT TIME. ON 3L PER NC. ON HEART MONITOR SHOWING SR, HR 75. RT AC SEEN WITH NS INFUSING AT KVO. CHINCHILLA CATH PATENT WITH YELLOW URINE. WILL CPOC.
[2017-05-27 07:58] VITALS: BP 160/85
[2017-05-27 11:54] VITALS: BP 127/78
[2017-05-27 16:12] VITALS: BP 185/88
--- NOTE | 2017-05-27 17:50 | NUR ---
DENIES NEEDS AT PRESENT TIME, AT BEDSIDE.
--- NOTE | 2017-05-27 19:43 | NUR ---
RESUMED CARE OF PT, LYING IN BED RESPIRATIONS EVEN AND UNLABORED ON 3LPM VIA NC. REPOSITIONED FOR COMFORT AND INCONTINENT EPISODE CLEANED. RIGHT UPPER ARM MIDLINE INFUSING NS @ KVO. 80 SR ON TELEMETRY. CALL LIGHT IN REACH. WILL CONTINUE TO MONITOR. SEE NURSE ASSESSMENT.
[2017-05-27 20:00] VITALS: BP 129/66
--- NOTE | 2017-05-27 23:14 | NUR ---
LYING IN BED WITH EYES CLOSED, CALL LIGHT IN REACH. WILL CONTINUE TO MONITOR.
[2017-05-28] VITALS: BP 159/75
--- NOTE | 2017-05-28 00:17 | NUR ---
BED BATH AND LINENS CHANGED, BENDADRYL IVP GIVEN FOR ITCHING
[2017-05-28 04:00] VITALS: BP 145/83
[2017-05-28 06:27] LABS: BASOPHILS 0.4 % (0-2); EOSINOPHILS 7.4 % (0-7); HEMATOCRIT 43.2 % (36.0-48.0); HEMOGLOBIN 13.8 g/dL (12-16); IMMATURE GRANULOCYTES 0.6 % (0-5); LYMPHOCYTES 17.7 % (15-50); MCH 29.1 pg (26.0-34.0); MCHC 31.9 g/dL (31.0-37.0); MCV 91.1 fL (80.0-100.0); MEAN PLATELET VOLUME 10.5 fL (7.4-10.4); MONOCYTES 11.2 % (2-11); NEUTROPHILS 62.7 % (40-80); PLATELET COUNT 230 10x3/uL (130-400); RBC 4.74 10x6/uL (4.00-5.40); RDW 15.7 % (11.5-14.5); WBC 8.3 10x3/uL (4.8-10.8)
[2017-05-28 06:55] LABS: ANION GAP 14.1 mmol/L (8-16); CALCIUM 9.2 mg/dL (8.5-10.1); CARBON DIOXIDE 29.2 mmol/L (21.0-32.0); POTASSIUM - SERUM 3.3 mmol/L (3.5-5.1)
--- NOTE | 2017-05-28 06:55 | NUR ---
NO CHANGES FROM PREVIOUS ASSESSMENT, CALL LIGHT IN REACH.
[2017-05-28 08:00] VITALS: BP 145/83
[2017-05-28 12:00] VITALS: BP 122/62
--- NOTE | 2017-05-28 15:01 | NUR ---
POTASSIUM REPLACED PER EP ORDERS. LAB ORDERED FOR REDRAW FOR POST TX AFTER 4 HOURS. PT REC'D PRN PAIN PILL FOR GENERALIZED PAIN. PT DENIES ANY FURTHER NEEDS AT THIS TIME. CL IN REACH, BED IN LOWEST, SIDE RAILS X2. WILL CPOC.
[2017-05-28 19:00] VITALS: BP 191/83
--- NOTE | 2017-05-28 19:27 | NUR ---
RECEIVED REPORT, WILL ASSUME CARE OF PT, BED IS LOW, SRX2, CALL LIGHT IN REACH, WILL CONTINUE PLAN OF CARE
--- NOTE | 2017-05-28 23:31 | NUR ---
ASSESSMENT COMPLETE, SEE FLOWSHEET, PT SLEEPING ON R.SIDE, BED IS LOW, SRX2, BED ALARM IS ON, CALL LIGHT IN REACH, WILL CONTINUE PLAN OF CARE
[2017-05-29] VITALS: BP 156/84
[2017-05-29 04:00] VITALS: BP 156/71
[2017-05-29 05:34] LABS: BASOPHILS 0.4 % (0-2); EOSINOPHILS 6.1 % (0-7); HEMATOCRIT 41.8 % (36.0-48.0); HEMOGLOBIN 13.8 g/dL (12-16); IMMATURE GRANULOCYTES 0.5 % (0-5); LYMPHOCYTES 19.2 % (15-50); MCH 29.9 pg (26.0-34.0); MCV 90.7 fL (80.0-100.0); MEAN PLATELET VOLUME 10.8 fL (7.4-10.4); MONOCYTES 11.3 % (2-11); NEUTROPHILS 62.5 % (40-80); PLATELET COUNT 226 10x3/uL (130-400); RBC 4.61 10x6/uL (4.00-5.40); RDW 15.7 % (11.5-14.5)
[2017-05-29 05:58] LABS: ANION GAP 12.6 mmol/L (8-16); CALCIUM 9.6 mg/dL (8.5-10.1); CARBON DIOXIDE 29.2 mmol/L (21.0-32.0); CREATININE - SERUM 1.1 mg/dL (0.6-1.3); POTASSIUM - SERUM 3.8 mmol/L (3.5-5.1)
--- NOTE | 2017-05-29 07:30 | NUR ---
INTRODUCED MYSELF TO PT PRIMARY RN FOR TODAYS SHIFT. AM ROUNDS COMPLETED. PT RESTING QUIETLY IN BED AT THIS TIME. CL IN REACH, BED IN LOWEST, SIDE RAILS X2. WILL CPOC.
[2017-05-29 08:00] VITALS: BP 150/84
--- NOTE | 2017-05-29 10:23 | NUR ---
PROVIDED PT WITH HER MORNING MEDICATIONS. PT SWALLOWED WITHOUT ANY DIFFICULTIES. PT C/O HER ITCHING/SKIN DISCOMFORT ALL OVER. PROVIDED PT WITH IV BENADRYL PT STATES IT WORKS BETTER THAN THE OINTMENT AND STATES SHE DOESNT WANT ANY CREAM APPLIED. PT HAS CH[place]A DRAINING TO GRAVITY OFF R.SIDE OF BED. STAT LOCK IN SECURED TO R.INNER THIGH. PT C/O NC BOTHERING HER EARS, TOOK OXYGEN OFF FOR NOW R/T PT STATES SHE IS BREATHING WELL WITHOUT IT AND DOESNT NORMALLY REQUIRE IT. PT VOICED THANKS WILL RECHECK PULSE OX SHORTLY TO MAKE SURE LEVELS DONT DROP. AT BEDSIDE. NO FURTHER NEEDS AT THIS TIME. CL IN REACH, BED IN LOWEST, SIDE RAILS X2. WILL CPOC.
[2017-05-29 12:00] VITALS: BP 120/66
--- NOTE | 2017-05-29 13:00 | NUR ---
PT WAS ASSISTED INTO HER BEDSIDE CHAIR WITH THERAPY. PT SITTING UP AND STATES SHE IS FEELING WELL. PULSE OX REMAINED ABOVE 94% SINCE OXYGEN WAS REMOVED SO WE WILL KEEP OXYGEN OFF. PT DENIES ANY CURRENT NEEDS AT THIS TIME. WILL CPOC.
[2017-05-29 16:00] VITALS: BP 127/73
--- NOTE | 2017-05-29 17:00 | NUR ---
EMPTIED CHINCHILLA CATH OF 750ML OF CLEAR YELLOW URINE. PT SITTING UP IN BED VISITING WITH FAMILY AT BEDSIDE. PT DENIES ANY CURRENT NEEDS. CL IN REACH, WILL CPOC.
--- NOTE | 2017-05-29 19:46 | NUR ---
RECEIVED REPORT, WILL ASSUME CARE OF PT, PT DENIES ANY NEEDS, BED IS LOW, SRX2, CALL LIGHT IN REACH, WILL CONTINUE PLAN OF CARE
[2017-05-29 20:00] VITALS: BP 125/54
[2017-05-30] VITALS: BP 129/75
--- NOTE | 2017-05-30 05:03 | NUR ---
ASSESSMENT COMPLETE, SEE FLOWSHEET,WAREHOUSE CLERK SHARIF GAVE BATH/LINEN CHANGE, BED IS LOW, SRX2, CALL LIGHT IN REACH, WILL CONTINUE PLAN OF CARE
[2017-05-30 05:07] LABS: BASOPHILS 0.4 % (0-2); EOSINOPHILS 5.7 % (0-7); HEMATOCRIT 43.7 % (36.0-48.0); IMMATURE GRANULOCYTES 0.5 % (0-5); LYMPHOCYTES 24.9 % (15-50); MCH 29.1 pg (26.0-34.0); MCV 90.9 fL (80.0-100.0); MEAN PLATELET VOLUME 10.8 fL (7.4-10.4); NEUTROPHILS 58.5 % (40-80); PLATELET COUNT 222 10x3/uL (130-400); RBC 4.81 10x6/uL (4.00-5.40); RDW 15.7 % (11.5-14.5); WBC 7.7 10x3/uL (4.8-10.8)
[2017-05-30 05:32] LABS: ANION GAP 10.9 mmol/L (8-16); CARBON DIOXIDE 30.7 mmol/L (21.0-32.0); POTASSIUM - SERUM 3.6 mmol/L (3.5-5.1)
--- NOTE | 2017-05-30 07:45 | NUR ---
AM ROUNDS COMPLETED. PT A&O RESTING QUIETLY IN BED WATCHING TV. PT STATES SHE HAD A GOOD NIGHT OVERALL. SHIFT ASSESSMENT COMPLETED PT IS HOPING TO GO HOME TODAY. PT DENIES ANY CURRENT NEEDS AT THIS TIME AND IS WAITING ON BREAKFAST. CL IN REACH, BED IN LOWEST, SIDE RAILS X2. WILL CPOC.
[2017-05-30 08:00] VITALS: BP 157/78
--- NOTE | 2017-05-30 09:40 | NUR ---
MORNING MEDICATIONS PROVIDED WITH FRESH ICE WATER. PT SWALLOWED WITHOUT ANY DIFFICULTIES. PT C/O HER CHRONIC R.KNEE PAIN REQUESTING AND PROVIDED WITH PRN PAIN PILL. PT STILL C/O ALL OVER DISCOMFORT AND HAS A GENERALIZED FLUSHED RASH ALL OVER, PROVIDED HER WITH PRN BENADRYL TO HELP RELIEVE IT. PT VOICED THANKS. PTS CHINCHILLA IN PLACE DRAINING TO GRAVITY. PT SITTING UP IN BEDSIDE CHAIR WATCHING TV. FLUSHED R.UPPER ARM MIDLINE WITHOUT ANY DIFFICULTIES. DRSG WILL BE CHANGED PER SUNDAY POLICY BUT PT REQUESTED FOR LATER JUST IN CASE SHE IS D/C AND IT GETS REMOVED. PT DENIES ANY FURTHER NEEDS AT THIS TIME. CL IN REACH. WILL CPOC.
[2017-05-30 12:00] VITALS: BP 138/68
--- NOTE | 2017-05-30 14:47 | NUR ---
PT WILL BE DISCHARGE THIS AFTERNOON. D/C PTS R.UPPER ARM MIDLINE CATHETER WITH TIP FULLY INTACT @13CM. PT SITTING UP IN BED WITH AT BEDSIDE COLLECTING HER BELONGINGS. NO FURTHER NEEDS AT THIS TIME. WILL CPOC.
--- NOTE | 2017-05-30 15:47 | NUR ---
D/C PTS CHINCHILLA CATHETER WITH TIP FULLY INTACT. ASSISTED PT WITH GETTING DRESSED. D/C INSTRUCTIONS GIVEN AND AND PT VERBALIZED UNDERSTANDING AND DENY ANY CURRENT QUESTIONS. PTS BEING WHEELED DOWN TO TRANSPORTATION VIA W/C. NO FURTHER NEEDS.
--- NOTE | 2017-05-30 16:32 | NUR ---
Patient Name: SHARIF GRANT Encounter No: [id number] : 1945 Primary Insurance: MEDICARE A & B Anticipated DC Date: 05-30-2017 Planned Disposition: Home LATE ENTRY: DCP follow-up note: CM MET WITH PT AND SPOUSE IN ROOM TO DISCUSS DISCHARGE NEEDS AND PLANNING. CM DISCUSSED AVAILABILITY OF HOME HEALTH, REHAB SERVICES AND MEDICAL EQUIPMENT. PT AND SPOUSE DENIED DISCHARGE NEEDS. SPOUSE TO TRANSPORT HOME AT DISCHARGE. IMPORTANT MESSAGE FROM MEDICARE PROVIDED AND EXPLAINED. Jose Cruz, CASE MANAGEMENT
--- NOTE | 2017-06-01 13:52 | EC ---
PATIENT:SHARIF GRANT DATE OF SERVICE: 05/19/17 SEX: F MEDICAL RECORD: [id number] DATE OF : [birth year] LOCATION:D.M2 D.212 AGE OF PATIENT: 72 ADMISSION DATE: 05/19/17 REFERRING PHYSICIAN: INTERPRETING PHYSICIAN: JANAY CHAVEZ MD ECHOCARDIOGRAM REPORT ECHO CHARGES 5 ECHO LIMITED 1 DOPPLER ECHO COLOR FLOW 2 DOPPLER ECHO PULSE CLINICAL DIAGNOSIS: DYSPNEA ECHOCARDIOGRAPHIC MEASUREMENTS (adult normal given) AC root (d.<3.7cm) 0 cm LV Septum d (<1.2 cm> 1.9 cm Valve Excursion 0 cm LV Septum (systole) 2.3 cm Left Atria (s.<4.0cm> 0 cm LVPW d(<1.2cm) 1.9 cm RV (d.<2.3cm) 0 cm LVPW (sytole) 2.1 cm LV diastole(<5.6CM) 3.9 cm MV E-F(>70mm/sec) cm LV systole 2.6 cm LVOT Diameter 0 cm MV exc.(>10mm) cm Est.ejection fraction (50-75%) % Pericardial Effusion N DOPPLER: LVIT 0 cm/sec A 0 cm/sec E 0 cm/sec LA 0 cm/sec RVSP 22.0 mmHg LVOT 0 cm/sec AOP1/2T 0 m/s Asc. Ao 0 cm/sec RVOT 0 cm/sec RA 0 cm/sec PA 0 cm/sec AV Gradient Peak 0 mmHg AV Mean 0 mmHg AV Area 0 cm MV Gradient Peak 0 mmHg MV Mean 0 mmHg MV Area 0 cm COMMENTS: LIMITED STUDY (2-D,COLOR,DOPPLER) COMPLETE ECHO DONE ON 01/14/17 Tour Guide: Alvaro HERNADEZ Keyboarding Clerk: 1 Dr. Chavez TAPE# PACS DATE OF SERVICE: 05/29/2017 Echocardiogram FINDINGS: 1. Left ventricular chamber size is within normal limits. Left ventricular systolic function is mildly reduced, overall ejection fraction 40% to 45%. 2. Doppler interrogation reveals moderate mitral regurgitation. No other valvular insufficiency or stenosis. Pulmonary systolic pressure is normal estimated 22 mmHg. ECHOCARDIOGRAM REPORT [id number] SHARIF GRANT 3. No evidence of pericardial effusion or left ventricular thrombus. TRANSINT:[id number] Voice Confirmation ID: [id number] DOCUMENT ID: [id number] JANAY CHAVEZ MD at 1352 CC: [id number] DICTATION DATE: 05/29/17 1056 AB INITIO ETL DEVELOPER: 05/29/17 1211 DIS IN 05/30/17 [place] [id number] [place] [id number]
[2017-06-01] MEDS ORDERED: EFFEXOR XR150 MG ×2 (15:58→15:59)
[2017-06-01] MEDS ORDERED: NEURONTIN 300300 MG (16:29)
== END 2017-05-30 15:49 | disposition home or self-care (01) | DRG 871 ==
LOC: D.ER 13:53 → D.M2 15:50
PROVIDERS: Emergency Medicine; Family Medicine; Internal Medicine Pulmonary Disease; Radiology Diagnostic Radiology; ADMIT Emergency Medicine
PROC: 05HB33Z Insertion of Infusion Device into Right Basilic Vein, Percutaneous Approach (ICD-10-PCS; 2017-05-21)
PROC: B54MZZA Ultrasonography of Right Upper Extremity Veins, Guidance (ICD-10-PCS; 2017-05-21)
PROC: 0W993ZZ Drainage of Right Pleural Cavity, Percutaneous Approach (ICD-10-PCS; principal; 2017-05-22 10:10)
DX: A41.9 Sepsis, unspecified organism (principal); J15.6 Pneumonia due to other Gram-negative bacteria; J96.01 Acute respiratory failure with hypoxia; J44.0 Chronic obstructive pulmonary disease with (acute) lower respiratory infection; J44.1 Chronic obstructive pulmonary disease with (acute) exacerbation; N17.9 Acute kidney failure, unspecified; I69.954 Hemiplegia and hemiparesis following unspecified cerebrovascular disease affecting left non-dominant side; I50.32 Chronic diastolic (congestive) heart failure; J98.11 Atelectasis; F41.8 Other specified anxiety disorders; E03.9 Hypothyroidism, unspecified; E87.6 Hypokalemia; I11.0 Hypertensive heart disease with heart failure; D64.9 Anemia, unspecified; I25.10 Atherosclerotic heart disease of native coronary artery without angina pectoris; Z95.5 Presence of coronary angioplasty implant and graft; I27.2 Other secondary pulmonary hypertension; I08.1 Rheumatic disorders of both mitral and tricuspid valves; I71.4 Abdominal aortic aneurysm, without rupture

== ENCOUNTER 2017-06-01 11:18 | Inpatient (IN) | payer MEDICARE, OTHER ==
[~2017-06-01] VITALS: Ht 168.9 cm; Wt 98.0 kg
--- NOTE | ~2017-06-01 | HEMODYNAMI ---
PATIENT:SHARIF GRANT MEDICAL RECORD: [id number] : 45 LOCATION[id number] ADMISSION DATE: 06/01/17 Generatedon:06/05/20178:13 Patient name: SHARIF GRANT Patient #: [id number] SSN: [id number] : 1945 Date of study: 06/05/2017 Page: Of Hemodynamic Procedure Report Patient Data Patient Demographics Procedure consent was obtained First Name: SHARIF Gender: Female Last Name: RUDY : 1945 [facility] Initial: MARIZA Age: 72 year(s) Patient #: [id number] Race: SSN: [id number] Additional ID: [id number] Contact details Address: [address] [place] [address] State: [place] City: [place] Zip code: [address] Past Medical History Allergies Allergen Reaction Date Comments Reported Other allergy 12/24/2015 VANCOMYCIN,IV DYE,PCN,ASA,SULPHA ROCEPHIN ZOLOFF DEMEROL Other allergy 06/05/2017 Rocephin, Vancomycin, lisinopril, Zoloft, Contrast, Sulfa, ASA, Demerol Admission Admission Data Admission Date: 06/01/2017 Admission Time: 14:43 Room #: 2121 Lab Results Lab Result Date: 06/05/2017 Lab Result Time: 0:00 Biochemistry Name Units Result Min Max BUN mg/dl 20 --(----)*- 7 18 Creatinine mg/dl 1 --(--*-)-- 0.6 1.3 CBC Name Units Result Min Max Hemoglobin g/dl 12.2 *-(----)-- 13.5 17.5 Procedure Procedure Types Cath Procedure Diagnostic Procedure [facility] w/Coronaries PCI Procedure Coronary Stent Initial Miscellaneous Procedures Moderate Sedation up to 45 minutes Procedure Description Procedure Date Procedure Date: 06/05/2017 Procedure Start Time: 7:34 Procedure End Time: 8:11 Procedure Staff Name Function Joseph Chavez MD Performing Physician Stephany Gasca RT Scrub Jose Martin Ornelas RT Scrub Sally Monreal RN Nurse Jewel Leiva RT Monitor Procedure Data Cath Procedure Fluoroscopy Diagnostic fluoroscopy Total fluoroscopy Time: time: 11.8 min 11.8 min Diagnostic fluoroscopy Total fluoroscopy dose: dose: 1091 mGy 1091 mGy Contrast Material Contrast Material Type Amount (ml) Isovue 300 128 Entry Location Entry Primary Successful Side Size Upsize Upsize Entry Closure Succes sful Closure Location (Fr) 1 (Fr) 2 (Fr) Remarks Device Remarks Femoral Right 5 Fr 6 Fr 6 Fr Exoseal artery Long Short Estimated blood loss: 10 ml Diagnostic catheters Device Type Used For End Catheter Placement Cordis 5Fr Pigtail LV Angiography Catheter (MP) Cordis 5Fr Pigtail LV Angiography Catheter (MP) Cordis 5Fr JL 4.0 Procedure Catheter (MP) Cordis 5Fr 3DRC Catheter Procedure (MP) Procedure Complications No complications Procedure Medications Medication Administration Route Dosage Oxygen NC 3 l/min Benadryl I.V. 50 mg Lidocaine 2% added to field 20 Heparin Flush Bag added to field 2 bags (1000units/500ml NS) 0.9% NaCl I.V. 100 ml/hr Versed I.V. 1 mg Fentanyl I.V. 50 mcg Versed I.V. 1 mg Fentanyl I.V. 50 mcg Heparin Bolus I.V. 5000 units Fentanyl I.V. 50 mcg Hemodynamics Rest HGB: 12.2 (g/dl) Heart Rate: 81 (bpm) Pressure Samples Time Site Value (mmHg) Purpose Heart Use Rate(bpm) 7:39 LV 138/34,55 Snapshot 77 Snapshots Pre Cath Intra NCS Post Cath Vital Signs Time Heart Resp SPO2 etCO2 AX5jsph NIBP (mmHg) Rhythm Pain Sedation Rate (ipm) (%) (mmHg) (mmHg) Status Level (bpm) 7:27:20 81 17 92 0 0 163/94(129) NSR 0 (11) 10(A) , No pain 7:31:42 83 18 92 0 0 156/95(132) NSR 0 (11) 10(A) , No pain 7:36:02 79 16 93 0 0 151/80(113) NSR 0 (11) 10(A) , No pain 7:40:23 76 14 93 0 0 131/79(102) NSR 0 (11) 9(A) , No pain 7:44:42 79 17 93 0 0 126/67(98) NSR 0 (11) 9(A) , No pain 7:48:58 76 16 93 0 0 123/73(103) NSR 0 (11) 9(A) , No pain 7:53:11 85 17 93 0 0 130/75(107) NSR 0 (11) 9(A) , No pain 7:57:22 85 16 93 0 0 144/84(114) NSR 0 (11) 9(A) , No pain 8:01:36 84 15 93 0 0 151/95(127) NSR 0 (11) 10(A) , No pain 8:05:55 85 14 93 0 0 142/84(115) NSR 0 (11) 10(A) , No pain 8:10:06 78 17 93 0 0 145/88(120) NSR 0 (11) 10(A) , No pain Medications Time Medication Route Dose Verified Delivered Reason Notes Effectiveness by by 7:29:21 Oxygen NC 3 Joseph Buffie used for l/min Kathy Monreal RN procedure 7:29:29 Benadryl I.V. 50 mg Joseph Buffie used for Kathy Monreal RN procedure 7:29:39 Lidocaine 2% added 20ml Joseph Joseph for local to vial Kathy Chavez MD anesthetic field 7:29:45 Heparin Flush added 2 Joseph Joseph used for Bag to bags Kathy Chavez MD procedure (1000units/500ml field NS) 7:29:54 0.9% NaCl I.V. 100 Joseph Buffie Per physician ml/hr Kathy Monreal RN 7:34:15 Versed I.V. 1 mg Joseph Buffie for sedation Kathy Monreal RN 7:34:20 Fentanyl I.V. 50 Joseph Buffie for sedation mcg Kathy Monreal RN 7:41:13 Versed I.V. 1 mg Joseph Buffie for sedation Kathy Monreal RN 7:41:17 Fentanyl I.V. 50 Joseph Buffie for sedation mcg Kathy Monreal RN 7:43:43 Heparin Bolus I.V. 5000 Joseph Buffie for verifie d units Kathy Monreal RN anticoagulation with dr chavez 8:02:17 Fentanyl I.V. 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 Start room use. 7:07:54 Time tracking: Regular hours 7:07:59 Plan of Care:Hemodynamics will remain stable., Cardiac rhythm will remain stable., Comfort level will be maintained., Respiratory function will remain adequate., Patient/ family verbilizes understanding of procedure., Procedure tolerated without complication., Recovers from procedure without complications.. 7:17:34 Patient received from Med II to CCL 1 Alert and oriented. Tansferred to table in Supine position. 7:17:35 Warm blankets applied, and cherrie hugger turned on for patient comfort. 7:17:36 Correct patient and procedure confirmed by team. 7:17:37 ECG and BP/O2 sat monitors applied to patient. 7:19:26 Full Disclosure recording started 7:26:06 Vital chart was started 7:26:42 Baseline sample Acquired. 7:27:08 Rhythm: atrial fibrillation 7:27:25 H&P Date Dictated: 06/05/2017 New H&P dictated by physician.. 7:27:27 Pre-procedure instructions explained to patient. 7:27:28 Pre-op teaching completed and patient verbalized understanding. 7:27:29 Family in waiting room. 7:27:30 Patient NPO since Midnight. 7:28:34 Patient allergic to Other allergyRocephin, Vancomycin, lisinopril, Zoloft, Contrast, Sulfa, ASA, Demerol 7:28:38 Is the patient allergic to Iodine/contrast media? Yes. 7:28:39 Was the patient premedicated? Yes 7:28:41 Is patient on blood thinner?Yes 7:28:45 ACC The patient was administered the following blood thiners within the last 24 hours: ACCPlavix 7:28:49 Patient diabetic? No. 7:28:52 Patient not . Patient is over age 55. 7:28:55 Previous problem with sedation/anesthesia? No ? 7:28:57 Snore? Yes 7:28:58 Sleep apnea? No 7:28:59 Deviated septum? No 7:29:00 Opens mouth fully? Yes 7:29:01 Sticks out tongue? Yes 7:29:03 Airway obstruction? No ? 7:29:09 Dentures? No ? 7:29:13 Pre procedure: right dorsailis pedis pulse 1+ Palpable, but thready & weak; easily obliterated 7:29:16 Pre procedure: left dorsailis pedis pulse 1+ Palpable, but thready & weak; easily obliterated 7:29:18 Patient pain scale 0/10 ?. 7:29:21 Oxygen 3 l/min NC was administered by Sally Monreal RN; used for procedure; 7::24 IV patent on arrival in right hand with 0.9% NaCl at O. 7:: Benadryl 50 mg I.V. was administered by Sally Monreal RN; used for procedure; 7::31 Lab results completed and on chart. 7:29:35 Right groin area was prepped with chlora-prep and draped in sterile fashion 7::36 Alarms reviewed by R. N. 7::36 Sharps counted by scrub and verified by R.N. 7:29:37 Physician arrived 7:29:37 --------ALL STOP TIME OUT------ 7:29:38 Final Timeout: patient, procedure, and site verified with staff and physician. All members of the team are in agreement. 7:29:39 Lidocaine 2% 20ml vial added to field was administered by Joseph Chavez MD; for local anesthetic; 7:29:42 Right groin site verified by team. 7:29:45 Heparin Flush Bag (1000units/500ml NS) 2 bags added to field was administered by Joseph Chavez MD; used for procedure; 7:29:45 Physical assessment completed. ASA score P 2 - A patient with mild systemic disease as per Joseph Chavez MD. 7:29:50 Sedation plan: IV Moderate Sedation Versed, Fentanyl 7::54 0.9% NaCl 100 ml/hr I.V. was administered by Sally Monreal RN; Per physician; 7:29:54 Use device set Femoral Dx 7:29:55 Acist Syringe opened to sterile field. 7::55 Bag Decanter opened to sterile field. 7:29:56 Medline Cath Pack opened to sterile field. 7:29:56 Terumo 5Fr [place] Sheath opened to sterile field. 7:29:57 St Javed 260cm J .035 wire opened to sterile field. 7:29:58 Acist Hand Control opened to sterile field. 7:29:59 Acist Manifold opened to sterile field. 7:29:59 Diagnostic Infinity 5Fr Multipack catheter opened to sterile field. 7:30:00 Tegaderm 4 x 4 opened to sterile field. 7:32:09 Lab Result : Creatinine 1 mg/dl 7:32:09 Lab Result : BUN 20 mg/dl 7:32:09 Lab Result : Hemoglobin 12.2 g/dl 7:33:56 Procedure started. 7:34:01 Local anesthetic to right femoral artery with Lidocaine 2% by Joseph Chavez MD.INITIAL ACCESS ONLY 7:34:11 A 5 Fr sheath was inserted into the Right Femoral artery 7:34:15 Versed 1 mg I.V. was administered by Sally Monreal RN; for sedation; 7:34:20 Fentanyl 50 mcg I.V. was administered by Sally Monreal RN; for sedation; 7:36:45 A Cordis 5Fr Pigtail Catheter (MP) was advanced over the wire and used for LV Angiography. 7:37:38 Catheter removed. unable to get back-up support 7:37:54 Terumo 6Fr [place] Destination Sheath opened to sterile field. 7:38:13 Sheath upsized to a 6 Fr Long. 7:38:28 A Cordis 5Fr Pigtail Catheter (MP) was advanced over the wire and used for LV Angiography. 7:39:51 LV gram done using MARVIN 7:39:53 Injector settings: Ml/sec: 10, Volume: 20, 7:40:01 EF : 40 % 7:40:27 Catheter exchanged over wire. 7:40:31 A Cordis 5Fr JL 4.0 Catheter (MP) was advanced over the wire and used for Procedure. 7:41:13 Versed 1 mg I.V. was administered by Sally Monreal RN; for sedation; 7:41:17 Fentanyl 50 mcg I.V. was administered by Sally Monreal RN; for sedation; 7:41:32 LCA angiography performed. 7:41:51 Terumo 6Fr [place] Sheath opened to sterile field. 7:42:06 Merit BasixCompak Inflation Kit opened to sterile field. 7:42:07 [place] Whisper J 300cm 0.014 guide wire opened to sterile field. 7:42:20 Catheter exchanged over wire. 7:42:24 A Cordis 5Fr 3DRC Catheter (MP) was advanced over the wire and used for Procedure. 7:43:43 Heparin Bolus 5000 units I.V. was administered by Sally Monreal RN; for anticoagulation; verified with dr chavez 7:46:30 Catheter exchanged over wire. 7:47:11 Medtronic Launcher 6Fr AR 2.0 guide catheter opened to sterile field. 7:47:20 6 Fr AR 2 guide catheter was inserted over the wire 7:48:06 WHISPER wire advanced. 7:49:41 Wire advanced across lesion. 7:50:16 The Mozec Rx 3.5 x 20 balloon was advanced and then removed because of failure to cross lesion 7:53:07 ScreenMedix Choice PT Extra Support J 300cm .014 gu opened to sterile field. 7:56:07 CHOICE PT wire advanced as kranthi wire 7:56:20 The Euphora 1.5 x 15 Balloon was advanced and then removed because of failure to cross lesion 7:57:01 Inflation number: 1 A Euphora 1.5 x 15 Balloon was prepped and advanced across the Mid RCA, then inflated to 21 HENRY for 0:10 (min:sec). 7:58:04 Balloon removed over the wire. 7:59:22 Inflation number: 2 A Euphora 2.0 x 15 Balloon was prepped and advanced across the Mid RCA, then inflated to 21 HENRY for 0:10 (min:sec). 7:59:51 Inflation number: 3 The Euphora 2.0 x 15 Balloon was reinflated across the Mid RCA, to 21 HENRY for 0:10 (min:sec). 8:00:18 Balloon removed over the wire. 8:01:56 Inflation number: 4 A Mozec Rx 3.5 x 20 balloon was prepped and advanced across the Mid RCA, then inflated to 17 HENRY for 0:10 (min:sec). 8:02:10 Inflation number: 5 The Mozec Rx 3.5 x 20 balloon was reinflated across the Mid RCA, to 17 HENRY for 0:10 (min:sec). 8:02:17 Fentanyl 50 mcg I.V. was administered by Sally Monreal RN; for sedation; 8:02:20 Balloon removed over the wire. 8:03:51 whisper wire removed. 8:04:15 Inflation Number: 6 A Dino OTW 3.0 x 15 stent was prepped and advanced across the Mid RCA. The stent was deployed at 21 HENRY for 0:10 (min:sec). 8:04:42 Stent catheter was removed intact over wire. 8:04:43 Wire removed. 8:04:49 Cordis 6Fr Exoseal opened to sterile field. 8:05:01 Sheath upsized to a 6 Fr Short. 8:05:10 Sheath removed intact; hemostasis achieved with Exoseal to the Right Femoral artery. 8:06:18 Procedure ended.(Physican Out) 8:06:22 Fluoroscopy time 11.80 minutes. 8:06:27 Fluoroscopy dose: 1091 mGy 8:06:27 Flurop Dose total: 1091 8:08:25 Contrast amount:Isovue 300 128ml. 8:08:26 Sharps counted by scrub and verified by R.N. 8:08:27 Insertion/operative site no bleeding no hematoma. 8:08:30 Post-op/insertion site Right Femoral artery dressed using a 4 x 4 and Tegaderm. 8:08:33 Post right femoral artery:stable, soft, clean and dry 8:08:34 Post Procedure Pulses reassessed and unchanged 8:08:38 Post-procedure physical assessment completed. ASA score P 2 - A patient with mild systemic disease as per Joseph Chavez MD. 8:08:40 Post procedure rhythm: unchanged. 8:08:42 Estimated blood loss: 10 ml 8:08:43 Post procedure instruction explained to patient.Patient verbalizes understanding. 8:08:44 Patient needs reinforcement of post procedure teaching. 8:09:14 Procedure type changed to Cath procedure, Diagnostic procedure, LHC, LHC w/Coronaries, PCI procedure, Coronary Stent Initial, Miscellaneous Procedures, Moderate Sedation up to 45 minutes 8:10:56 IV Extension Set opened to sterile field. 8:11:21 Procedure and supply charges have been captured, reviewed, submitted and are correct. 8:11:23 Procedure Complication : No complications 8:11:25 Vital chart was stopped 8:11:46 See physician's report for complete and final results. 8:11:50 Report given to PCU. 8:11:53 Patient transfered to PCU with Stretcher. 8:11:55 Procedure ended. 8:11:55 Full Disclosure recording stopped 8:13:11 End room use (Document Last) Intervention Summary Intervention Notes Time ActionType Lesion and Equipment Action# Pressure Duration Attributes Used 7:50:16 Discard Mozec Rx Balloon 3.5 x 20 balloon 7:56:20 Discard Euphora Balloon 1.5 x 15 Balloon 7:57:01 Inflate Mid RCA Euphora 1 21 00:10 balloon 1.5 x 15 Balloon 7:59:22 Inflate Mid RCA Euphora 2 21 00:10 balloon 2.0 x 15 Balloon 7:59:51 Reinflate Mid RCA Euphora 3 21 00:10 balloon 2.0 x 15 Balloon 8:01:56 Inflate Mid RCA Mozec Rx 4 17 00:10 balloon 3.5 x 20 balloon 8:02:10 Reinflate Mid RCA Mozec Rx 5 17 00:10 balloon 3.5 x 20 balloon 8:04:15 Place stent Mid RCA [place] OTW 6 21 00:10 3.0 x 15 stent Device Usage Item Name Manufacture Quantity Catalog Number Hospital Part Current Minim al Lot# / Charge Number Stock Stock Serial# Code Acist Acist 1 [id number] 159371 196795 20 Syringe Medical Systems Inc Bag Microtek 1 2002S [id number] 88712 771655 5 Decanter Medical Inc. Medline Cardinal 1 [id number] 732324 63068 544447 5 Cath Pack Health Terumo 5Fr Terumo 1 [id number] 814407 941838 941625 [address] J[address] Javed 1 759654 954194 228590 519786 30 260cm J .035 wire Acist Hand Acist 1 50778 020237 210425 381984 5 Control Medical Systems Inc Acist Acist 1 05651 193665 793070 400739 5 Manifold Medical Systems Inc Diagnostic Cardinal 1 [id number] 831933 85073 471535 30 Infinity Health 5Fr Multipack catheter Tegaderm 4 3M 1 1626W 785956 056442 166371 5 x 4 Cordis 5Fr Cardinal 1 897471 5 Pigtail Health Catheter (MP) Terumo 6Fr Terumo 1 RSR01 951545 41587 517300 5 Beloit Destination Sheath Cordis 5Fr Cardinal 1 010823 5 JL 4.0 Health Catheter (MP) Terumo 6Fr Terumo 1 JVO019 708999 074491 252045 [address] [facility] 1 EC0092 963456 819533 339539 15 BasixCompak Medical Inflation Kit [place] 1 [id number] 635126 010367 350183 5 Whisper J Vascular 300cm 0.014 guide wire Cordis 5Fr Cardinal 1 740968 5 3DRC Health Catheter (MP) Medtronic Medtronic 1 [id number] 134175 85033 472991 1 Launcher 6Fr AR 2.0 guide catheter Mozec Rx Cardinal 1 [id number] 456184 13361 646677 5 3.5 x 20 Health balloon [place] Sci [place] 1 [id number] 571397 623953 581416 5 Choice PT Scientific Extra Support J 300cm .014 gu Euphora 1.5 Medtronic 1 [id number] 978704 074346 729891 5 [id number] x 15 Balloon Euphora 2.0 Medtronic 1 [id number] 752602 959330 916918 5 [id number] x 15 Balloon Dino OTW Medtronic 1 [id number] 853931 833414 325907 5 [id number] 3.0 x 15 stent Cordis 6Fr Cardinal 1 EX600 154120 952351 759058 10 [facility] Hospira 1 45835-25 220160 72944 026123 5 Extension Set Signature Audit [place] Stage Time Signature Unsigned Intra-Procedure 06/05/2017 Jewel Leiva 8:13:34 AM RT(R) Signatures Monitor : Jewel Leiva RT Signature : Date : Time : [facility] [address] [place] [address]
[~2017-06-01 11:18] MED LIST changes: +ALENDRONATE SOD70 MG PO; +HYDROCODONE-APA1 TAB PO; +LEVOTHYROXINE50 MCG PO; +MYCOSTATIN CREA15 GM TOPICAL; +PRAVASTATIN SOD10 MG PO; +TEMAZEPAM30 MG PO
[2017-06-01 12:00] LABS: BASOPHILS 0.2 % (0-2); EOSINOPHILS 5.5 % (0-7); HEMATOCRIT 38.2 % (36.0-48.0); HEMOGLOBIN 12.1 g/dL (12-16); IMMATURE GRANULOCYTES 0.3 % (0-5); LYMPHOCYTES 22.9 % (15-50); MCH 29.3 pg (26.0-34.0); MCHC 31.7 g/dL (31.0-37.0); MCV 92.5 fL (80.0-100.0); MONOCYTES 7.4 % (2-11); NEUTROPHILS 63.7 % (40-80); PLATELET COUNT 208 10x3/uL (130-400); RBC 4.13 10x6/uL (4.00-5.40); RDW 15.8 % (11.5-14.5); WBC 10.8 10x3/uL (4.8-10.8)
[2017-06-01 12:04] LABS: ALBUMIN 2.6 g/dL (3.4-5.0); ALKALINE PHOSPHATASE 89 U/L (46-116); ALT (SGPT) 18 U/L (10-68); BILIRUBIN - TOTAL 0.38 mg/dL (0.2-1.3); CALC OSMOLALITY 282 mosm/kg (275-300); CALCIUM 8.3 mg/dL (8.5-10.1); CHLORIDE - SERUM 101 mmol/L (98-107); GLUCOSE 87 mg/dL (74-106); POTASSIUM - SERUM 4.1 mmol/L (3.5-5.1); PROTEIN - SERUM 6.5 g/dL (6.4-8.2); SODIUM 136 mmol/L (136-145); UREA NITROGEN 47 mg/dL (7-18); eGFR NON AFRICAN AMERICAN 26 mL/min (90-120)
[2017-06-01 12:29] LABS: CKMB 0.9 U/L (0.0-3.6); PRO BNP 867 pg/mL (0-125)
[2017-06-01 12:33] LABS: TROPONIN-I 0.107 ng/mL (0.000-0.060)
[2017-06-01 13:22] LABS: APPEARANCE HAZY (CLEAR); COLOR YELLOW (YELLOW); SPECIFIC GRAVITY 1.025 (1.005-1.020)
[2017-06-01 13:32] LABS: BILIRUBIN NEGATIVE (NEGATIVE); GLUCOSE NEGATIVE (NEGATIVE); KETONE NEGATIVE (NEGATIVE); LEUKOCYTE ESTERASE TRACE (NEGATIVE); NITRITE NEGATIVE (NEGATIVE); PROTEIN NEGATIVE (NEGATIVE); UROBILINOGEN NORMAL (NORMAL)
[2017-06-01 13:33] LABS: BACTERIA MODERATE /hpf (NONE SEEN); EPITHELIAL CELLS 0-5 /hpf (0-5); HYALINE CAST 0-5 /lpf (NONE SEEN); MUCUS <1+ /lpf (NONE SEEN); RED CELLS - URINE RARE /hpf (0-5); WHITE CELLS - URINE 0-5 /hpf (0-5)
[2017-06-01] MEDS ORDERED: CELEXA20 MG PO (15:50)
[2017-06-01] MEDS ORDERED: MESTINON60 MG PO (15:55)
[2017-06-01] MEDS ORDERED: EFFEXOR XR150 MG (15:58)
[2017-06-01 16:00] VITALS: BP 141/77
[2017-06-01] MEDS ORDERED: NEURONTIN 300300 MG PO (16:29)
[2017-06-01] MEDS ORDERED: MS CONTIN30 MG PO (16:45)
--- NOTE | 2017-06-01 17:03 | NUR ---
RECIEVED FROM ER. LETHARGIC. TELEMERTY SHOWS SR 80. FAMILY AT BEDSIDE. SR UP WITH CALL LIGHT IN REACH WILL MONITOR
--- NOTE | 2017-06-01 18:27 | NUR ---
LYING QUIETLY.NO COMPLAINTS VOICED. PT INCONIENT. CALLED DR BYERS FOR ORDER FOR CATH. TELEMERTY SHOWS SR. FAMILY AT BEDSIDE. WILL MONITOR
--- NOTE | 2017-06-01 19:00 | NUR ---
RECEIVED REPORT AND ASSUMED PT CARE FROM DAY SHIFT NURSE @ THIS TIME.
--- NOTE | 2017-06-01 19:00 | NUR ---
RECEIVED REPORT AND ASSUMED PT CARE FROM DAY SHIFT NURSE @ THIS TIME.
[2017-06-01 20:00] VITALS: BP 120/70; BP 131/60
--- NOTE | 2017-06-01 20:49 | NUR ---
CHINCHILLA CATH ORDERED. CHINCHILLA CATH 16 FR 10 CC BULB PLACED WITH 400 ML YELLOW URINE RETURNED WITH SMALL AMOUNT SEDIMENT NOTED. STAT LOCK USED AND ATTACHED TO RIGHT THIGH, CHINCHILLA SECURED. PT TOLERATED WELL. RESISTANCE BRAZER USED. WILL MONITOR.
[2017-06-02] VITALS: BP 124/72
[2017-06-02 04:00] VITALS: BP 124/60
[2017-06-02 06:08] LABS: BASOPHILS 0.1 % (0-2); HEMATOCRIT 35.9 % (36.0-48.0); HEMOGLOBIN 11.4 g/dL (12-16); IMMATURE GRANULOCYTES 0.3 % (0-5); LYMPHOCYTES 22.2 % (15-50); MCH 29.1 pg (26.0-34.0); MCHC 31.8 g/dL (31.0-37.0); MCV 91.6 fL (80.0-100.0); MEAN PLATELET VOLUME 10.9 fL (7.4-10.4); MONOCYTES 9.7 % (2-11); NEUTROPHILS 60.7 % (40-80); PLATELET COUNT 180 10x3/uL (130-400); RBC 3.92 10x6/uL (4.00-5.40); RDW 15.5 % (11.5-14.5); WBC 7.4 10x3/uL (4.8-10.8)
[2017-06-02 06:12] LABS: ANION GAP 7.1 mmol/L (8-16); CALCIUM 8.2 mg/dL (8.5-10.1); CARBON DIOXIDE 30.9 mmol/L (21.0-32.0)
[2017-06-02 06:13] LABS: CREATININE - SERUM 1.1 mg/dL (0.6-1.3)
[2017-06-02 08:38] VITALS: BP 112/59
--- NOTE | 2017-06-02 09:24 | NUR ---
TELEMETRY SR. RESP UL ON 2L NC. IV PATENT. CALL LIGHT IN REACH. NPO FOR [facility]. WILL CONT. PLAN OF CARE.
[2017-06-02 11:58] VITALS: Ht 168.9 cm; Wt 98.0 kg
[2017-06-02 12:54] VITALS: BP 120/59
[2017-06-02 16:37] VITALS: BP 102/63
[2017-06-02 19:00] VITALS: BP 115/57
[2017-06-03] VITALS: BP 117/71
[2017-06-03 05:24] LABS: BASOPHILS 0.3 % (0-2); EOSINOPHILS 9.7 % (0-7); HEMATOCRIT 36.9 % (36.0-48.0); HEMOGLOBIN 11.5 g/dL (12-16); IMMATURE GRANULOCYTES 0.3 % (0-5); LYMPHOCYTES 18.8 % (15-50); MCH 28.9 pg (26.0-34.0); MCHC 31.2 g/dL (31.0-37.0); MCV 92.7 fL (80.0-100.0); MONOCYTES 13.9 % (2-11); PLATELET COUNT 194 10x3/uL (130-400); RBC 3.98 10x6/uL (4.00-5.40); RDW 15.6 % (11.5-14.5); WBC 6.3 10x3/uL (4.8-10.8)
[2017-06-03 05:36] LABS: ANION GAP 9.3 mmol/L (8-16); CALCIUM 8.3 mg/dL (8.5-10.1); CREATININE - SERUM 1.1 mg/dL (0.6-1.3); POTASSIUM - SERUM 4.3 mmol/L (3.5-5.1)
[2017-06-03 08:58] VITALS: BP 155/83
--- NOTE | 2017-06-03 09:56 | NUR ---
REPOSITIONED FOR COMFORT. RESP UL ON 02 2L NC. TELEMETRY SR. IV PATENT. CHINCHILLA INTACT. WILL CONT. PLAN OF CARE.
[2017-06-03 11:53] VITALS: BP 112/63
[2017-06-03 16:50] VITALS: BP 113/63
[2017-06-03 20:00] VITALS: BP 104/52
[2017-06-04 00:20] VITALS: BP 112/75
[2017-06-04 04:26] VITALS: BP 117/69
[2017-06-04 06:00] LABS: BASOPHILS 0.6 % (0-2); EOSINOPHILS 14.3 % (0-7); HEMATOCRIT 37.1 % (36.0-48.0); HEMOGLOBIN 11.6 g/dL (12-16); IMMATURE GRANULOCYTES 0.4 % (0-5); MCH 29.1 pg (26.0-34.0); MCHC 31.3 g/dL (31.0-37.0); MCV 93.2 fL (80.0-100.0); MONOCYTES 16.2 % (2-11); NEUTROPHILS 47.5 % (40-80); PLATELET COUNT 198 10x3/uL (130-400); RBC 3.98 10x6/uL (4.00-5.40); RDW 15.8 % (11.5-14.5)
[2017-06-04 06:04] LABS: WBC 4.6 10x3/uL (4.8-10.8)
[2017-06-04 06:13] LABS: ANION GAP 10.2 mmol/L (8-16); CALCIUM 8.6 mg/dL (8.5-10.1); CARBON DIOXIDE 31.3 mmol/L (21.0-32.0); POTASSIUM - SERUM 4.5 mmol/L (3.5-5.1)
--- NOTE | 2017-06-04 07:30 | NUR ---
RESTING QUIETLY RESP UNLABORED DENIES ANY NEEDS OR DISCOMFORT NAD NOTED
--- NOTE | 2017-06-04 07:43 | NUR ---
ASSESSMENT DONE. GOMEZ NEEDS.
[2017-06-04 08:00] VITALS: BP 122/76
[2017-06-04 12:00] VITALS: BP 126/72
[2017-06-04 16:00] VITALS: BP 126/74
--- NOTE | 2017-06-04 16:56 | NUR ---
WITHOUT CHANGES OR DISTRESS NOTED AT THIS TIME. DENIES NEEDS. AT SIDE.
[2017-06-04 19:00] VITALS: BP 136/67
--- NOTE | 2017-06-04 21:01 | NUR ---
HS MEDS GIVEN WITH FRESH ICE WATER. REMINDED PT OF NOTHING TO EAT OR DRINK AFTER MN FOR CARDIAC CATH IN AM, PT STATED UNDERSTANDING. NO OTHER NEEDS VOICED AT THIS TIME, BED LOW, CL IN REACH.
[2017-06-05] VITALS: BP 142/83
--- NOTE | 2017-06-05 00:08 | NUR ---
MAINFRAME PROGRAMMER AT BED SIDE TO OBTAIN VITALS.
--- NOTE | 2017-06-05 03:00 | NUR ---
PT RESTING IN BED WITH NO DISTRESS. RESPS EVEN/NONLABORED. MONITOR AND CPOC. CALL LIGHT IN REACH. BED LOW.
--- NOTE | 2017-06-05 03:08 | NUR ---
RESTING WITH EYES CLOSED, RESPERATIONS EVEN, NO S/S DISTRESS NOTED.
[2017-06-05 04:00] VITALS: BP 157/87
--- NOTE | 2017-06-05 06:00 | NUR ---
CONSENT FOR CARDIAC CATH SIGNED, WITTNESSED AND PLACED IN CHART.
[2017-06-05 06:06] LABS: BASOPHILS 0.2 % (0-2); EOSINOPHILS 0 % (0-7); HEMATOCRIT 37.7 % (36.0-48.0); HEMOGLOBIN 12.2 g/dL (12-16); IMMATURE GRANULOCYTES 0.4 % (0-5); LYMPHOCYTES 13.2 % (15-50); MCH 29.3 pg (26.0-34.0); MCHC 32.4 g/dL (31.0-37.0); MEAN PLATELET VOLUME 11.1 fL (7.4-10.4); MONOCYTES 9.2 % (2-11); PLATELET COUNT 219 10x3/uL (130-400); RBC 4.16 10x6/uL (4.00-5.40); RDW 14.9 % (11.5-14.5); WBC 5.5 10x3/uL (4.8-10.8)
[2017-06-05 06:07] LABS: MCV 90.6 fL (80.0-100.0)
[2017-06-05 06:11] LABS: ANION GAP 11.9 mmol/L (8-16); CALCIUM 8.6 mg/dL (8.5-10.1); CARBON DIOXIDE 28.7 mmol/L (21.0-32.0); POTASSIUM - SERUM 4.6 mmol/L (3.5-5.1)
--- NOTE | 2017-06-05 07:17 | NUR ---
TO GROUP FITNESS MANAGER PER BED. ASSESSMENT COMPLETED. CHINCHILLA CATH PATENT TOGRAVITY BAG. RIGHT HAND IV WITH NS AT KVO. TELEMERTY SHOWS SR.
--- NOTE | 2017-06-05 08:38 | NUR ---
BACK FROM CIGARETTE INSPECTOR.TELEMERTY SHOWS SR.V/S STABLE. O2 3 L/M PER NC. RIGHT GROIN SOFT WITH DRSG DRY AND INTACT. SR UP WITH CALL LIGHT IN REAC. WILL MONITOR
[2017-06-05 12:00] VITALS: BP 118/66
--- NOTE | 2017-06-05 12:49 | NUR ---
LYING QUIETLY. RIGHT GROIN SOFT WITH DRSG DRY AND INTACT. V/S STABLE . PPP. DENIES ANY NEEDS. FAMILY AT BEDSIDE
[2017-06-05 16:00] VITALS: BP 144/76
--- NOTE | 2017-06-05 18:05 | NUR ---
AWAKE, ALERT. RIGHT GROIN SOFT WITH DRSD DRY AND INTACT. IV INFUSING INTO RIGHT HAND.TELEMERTY SHOWS SR
[2017-06-05 19:00] VITALS: BP 101/43
--- NOTE | 2017-06-05 19:42 | NUR ---
ASSESSMENT COMPELTE, A&O. IV TO RIGHT HAND WITH NS INFUSING AT KVO. SITE CLEAN AND DRY. 02 AT 3 LITER VIA NC. DRSG TO RIGHT GROIN C/D/I. NO SWELLING OR BLEEDING NOTED. NO HEMATOMA NOTED. PEDAL PULSES PRESENT. PT DENIES PAIN OR NEEDS, BED LOW, CL IN REACH.
[2017-06-06] VITALS: BP 112/57
--- NOTE | 2017-06-06 00:37 | NUR ---
RESTING WITH EYES CLOSED, RESPERATIONS EVEN, NO S/S DSITRESS NOTED.
[2017-06-06 04:00] VITALS: BP 102/60
--- NOTE | 2017-06-06 04:15 | NUR ---
CARPENTRY PROFESSIONAL AT BED SIDE TO OBTAIN VITALS, NO S/S DISTRESS NOTED.
[2017-06-06 05:50] LABS: BASOPHILS 0.1 % (0-2); HEMATOCRIT 35.5 % (36.0-48.0); HEMOGLOBIN 11.1 g/dL (12-16); IMMATURE GRANULOCYTES 0.3 % (0-5); LYMPHOCYTES 20.8 % (15-50); MCH 28.9 pg (26.0-34.0); MCHC 31.3 g/dL (31.0-37.0); MCV 92.4 fL (80.0-100.0); MEAN PLATELET VOLUME 10.6 fL (7.4-10.4); MONOCYTES 10.5 % (2-11); NEUTROPHILS 66.3 % (40-80); PLATELET COUNT 220 10x3/uL (130-400); RBC 3.84 10x6/uL (4.00-5.40); RDW 15.6 % (11.5-14.5)
[2017-06-06 05:51] LABS: WBC 6.9 10x3/uL (4.8-10.8)
[2017-06-06 06:29] LABS: ANION GAP 10.5 mmol/L (8-16); CREATININE - SERUM 0.9 mg/dL (0.6-1.3); POTASSIUM - SERUM 4.5 mmol/L (3.5-5.1)
[2017-06-06 08:14] VITALS: BP 135/78
[2017-06-06 11:15] LABS: IMMUNOGLOBULIN A 250 mg/dL (64-422); IMMUNOGLOBULIN G 1070 mg/dL (700-1600)
[2017-06-06 12:05] VITALS: BP 128/77
[2017-06-06 16:00] VITALS: BP 123/61
--- NOTE | 2017-06-06 17:51 | NUR ---
ALERT AND ORIENTED X4. RESTING IN BED. AT BEDSIDE. RT HAND IV INFILTRATED. DC RT HAND IV TIP INTACT. RESITE IV TO RT HAND 20G. DENIES ANY NEEDS. BED LOCKED AND LOW. CALL LIGHT IN REACH. ASSIST WITH MEALS. REPORTS DIFFICULTY WITH FINE MOTOR SKILLS.
[2017-06-06 19:00] VITALS: BP 110/48
--- NOTE | 2017-06-06 20:56 | NUR ---
HS MEDS GIVEN WITH FRESH ICE WATER. PRIMARY AND SECONDARY TUBING CHANGED AND LABELLED ACCORDINGLY. PT DNEIES ANY NEEDS AT THIS TIME, BED LOW, CL IN REACH.
[2017-06-07] VITALS: BP 134/68
--- NOTE | 2017-06-07 00:36 | NUR ---
DRILLER'S ASSISTANT AT BEDSIDE TO OBTAIN VITALS, WILL CONTINUE WITH PLAN OF CARE.
--- NOTE | 2017-06-07 02:22 | NUR ---
RESTING WITH EYES CLOSED, RESPERATIONS EVEN, NO S/S DISTRESS NOTED.
[2017-06-07 04:00] VITALS: BP 103/54
[2017-06-07 07:00] VITALS: BP 120/60
--- NOTE | 2017-06-07 07:43 | NUR ---
ASSESSMENT DONE. DENIES NEEDS.
--- NOTE | 2017-06-07 11:15 | NUR ---
RESTING QUIETLY IN BED. ATTEMPTED TO SIT ON BEDSIDE WITH P.T. BUT PT IS VERY WEAK AND WAS UNABLE TO ACCOMPLISH TASK. MONITOR SHOWS SR@ 69. WILL CONTINUE TO MONITOR.
[2017-06-07 12:43] VITALS: BP 123/63
--- NOTE | 2017-06-07 13:08 | NUR ---
Nutrition Monitoring and Eval: Pt reported that her appetite is good. She said that she is having no difficulty chewing or swallowing. Pt is eating 81% meal avg on an AHA diet. +BM 06/05/17. No new wt. Meds and labs reviewed. Pt continues at low nutritional risk. Rec continue current diet. RD following.
[2017-06-07 16:51] VITALS: BP 137/72
--- NOTE | 2017-06-07 16:58 | NUR ---
WITHOUT CHANGES OR DISTRESS NOTED AT THIS TIME. AT SIDE. DENIES NEEDS.
--- NOTE | 2017-06-07 17:35 | NUR ---
Patient Name: SHARIF GRANT Admission Status: ER Accout number: [id number] Admission Date: 06-01-2017 : 1945 Admission Diagnosis:OTHER SPECIFIED ABNORMAL FINDINGS OF BLOOD CHEMISTRY Attending: MYNOR LANE Current LOS: 6 Anticipated DC Date: Planned Disposition: Home Primary Insurance: MEDICARE A & B Discharge Planning Comments: * Is the patient Alert and Oriented? Yes 0 * How many steps to enter\exit or inside your home? RAMP 0 * PCP DR. ANDRES WILKINSON 0 * Pharmacy [facility] 0 * Preadmission Environment Home with Family 0 * ADLs Partial Dependent 0 * Partial ADLs (Assistance needed) Bathing Transfers 0 * Equipment Bedside Commode Rolling Walker Wheelchair 0 * Other Equipment LIFT CHAIR WALK IN TUB NO MEDICAL EQUIPMENT PROVIDER PREFERENCE 0 * List name and contact numbers for known caregivers / representatives who currently or will assist patient after discharge: BORIS GRANT, SPOUSE, / [phone] 0 * Community resources currently utilized None 0 * Please name any agencies selected above. HAS USED [facility] IN THE PAST 0 * Additional services required to return to the preadmission environment? No 0 * Can the patient safely return to the preadmission environment? Yes 0 * Has this patient been hospitalized within the prior 30 days at any hospital? Yes 0 CM MET WITH PT AND SPOUSE IN ROOM TO DISCUSS DISCHARGE PLANNING AND NEEDS. PT REPORTS LIVING AT HOME DEPENDENTLY ON SPOUSE FOR TRANSFER ASSISTANCE AND BATHING. PT HAS ALL NEEDED EQUIPMENT AT HOME WITH NO MEDICAL EQUIPMENT PROVIDER PREFERENCE. PT HAS NO OUTSIDE SERVICES ASSISTING IN THE HOME. CM DISCUSSED AVAILABILITY OF HOME HEALTH, REHAB SERVICES AND MEDICAL EQUIPMENT. PT DENIES DISCHARGE NEEDS AT THIS TIME, WILL THINK ABOUT HOME HEALTH BUT DOES NOT WANT REHAB HERE AT [place] OR SENIOR LIVING FACILITY; PT REPORTS HER SPOUSE WILL PICK HER UP FOR DISCHARGE HOME. PT CONSIDERING HOME HEALTH FOR DISCHARGE. CM TO FOLLOW AND ASSIST IF NEEDED. Center Rep: Jose Cruz
[2017-06-07 19:00] VITALS: BP 150/77
--- NOTE | 2017-06-07 19:29 | NUR ---
RESUMED CARE OF PT, LYING IN BED RESPIRATIONS EVEN AND UNLABORED ON 3LPM VIA NC. 65 SR ON TELEMETRY. RIGHT HAND INFUSING NS @ 50. CHINCHILLA TO GRAVITY. CALL LIGHT IN REACH. WILL CONTINUE TO LUCINA, SEE NURSE ASSESSMENT.
[2017-06-08] VITALS (7 sets, daily range): BP systolic 104–151; BP diastolic 51–86
--- NOTE | 2017-06-08 07:10 | NUR ---
ASSESSMENT DONE. DENIES NEEDS.
[2017-06-08 12:14] LABS: ANION GAP 9.1 mmol/L (8-16); CALCIUM 8.6 mg/dL (8.5-10.1); CARBON DIOXIDE 35.7 mmol/L (21.0-32.0); CREATININE - SERUM 1.1 mg/dL (0.6-1.3); POTASSIUM - SERUM 3.8 mmol/L (3.5-5.1)
[2017-06-08 12:39] LABS: BASOPHILS 0.4 % (0-2); EOSINOPHILS 8.3 % (0-7); HEMATOCRIT 40.2 % (36.0-48.0); HEMOGLOBIN 12.9 g/dL (12-16); IMMATURE GRANULOCYTES 0.4 % (0-5); MCHC 32.1 g/dL (31.0-37.0); MCV 90.3 fL (80.0-100.0); MEAN PLATELET VOLUME 10.8 fL (7.4-10.4); MONOCYTES 9.9 % (2-11); PLATELET COUNT 210 10x3/uL (130-400); RBC 4.45 10x6/uL (4.00-5.40); RDW 15.1 % (11.5-14.5); WBC 7.5 10x3/uL (4.8-10.8)
--- NOTE | 2017-06-08 18:24 | NUR ---
WITHOUT CHANGES OR DISTRESS NOTED AT THIS TIME. DENIES NEEDS. AT SIDE.
--- NOTE | 2017-06-08 23:48 | NUR ---
INITIAL ROUNDS COMPLETED AT 1915 HRS. PT ASKING FOR MEDS FOR CONSTIPATION. INFORMED NO ORDRS. PRUNE JUICE COCKTAIL GIVEN. ASSESSMENT COMPLETED AT 2005 HRS. VSS. SR PER CM HT 75. 02 2.5LNC. IV TO R HAND RED WITH REDDENED AREA GOOING UP ARM. LUNGS DIMINISHED IN BASES BILAT. ESCOBEDO. CHINCHILLA DRAINING YELLOW URINE. IV DC'D WITH CATHETER INTACT AND ICE PACK PROVIDED. PM MEDS GIVEN. NEW IV STARTED AT 2220 HRS. #22 TO L HAND WIHT ATTEMPT X1. PT TOLERATED PROCEDURE WELL. PT CURRENTLY RESTING WTH EYES CLOSED. RESP EVEN AND REGULAR. SR UP X2,CALL LIGHT WITHIN REACH.
--- NOTE | 2017-06-09 01:44 | NUR ---
PT RESTING WITH EYES CLOSED. RESP DEEP, EVEN AND REGULAR. O2 SAT 93% ON 2.5LNC. WILL CONTINUE TO MONITOR. SR UP X2, CALL LIGHT WITHIN REACH.
--- NOTE | 2017-06-09 03:55 | NUR ---
VSS. PT DENIES ANY DISCOMFORT. WILL CONTINUE TO MONITOR.
[2017-06-09 03:58] VITALS: BP 97/53
[2017-06-09 06:24] LABS: BASOPHILS 0.2 % (0-2); HEMATOCRIT 38.1 % (36.0-48.0); HEMOGLOBIN 12.1 g/dL (12-16); IMMATURE GRANULOCYTES 0.5 % (0-5); LYMPHOCYTES 23.7 % (15-50); MCH 28.9 pg (26.0-34.0); MCHC 31.8 g/dL (31.0-37.0); MCV 90.9 fL (80.0-100.0); MEAN PLATELET VOLUME 10.9 fL (7.4-10.4); NEUTROPHILS 52.6 % (40-80); PLATELET COUNT 225 10x3/uL (130-400); RBC 4.19 10x6/uL (4.00-5.40); RDW 15.2 % (11.5-14.5); WBC 5.7 10x3/uL (4.8-10.8)
[2017-06-09 06:31] LABS: ANION GAP 6.8 mmol/L (8-16); CALCIUM 8.8 mg/dL (8.5-10.1); CARBON DIOXIDE 36.7 mmol/L (21.0-32.0); CREATININE - SERUM 0.9 mg/dL (0.6-1.3); POTASSIUM - SERUM 3.5 mmol/L (3.5-5.1)
--- NOTE | 2017-06-09 06:51 | NUR ---
VSS THROUGHOUT NIGHT. SR PER CM. PT SLEPT WELL DURING SHIFT. NEEDS MET; WILL CONTINUE TO MONITOR.
--- NOTE | 2017-06-09 07:20 | NUR ---
ASSESSMENT COMPLETED. TELEMERTY SHOWS SR. 02 AT 2 L/M PER NC. LEFT HAND IV SL. LUNGS DIMISHED.CHINCHILLA CATH PATENT TO GRAVITY BAG. DENIES ANY NEEDS. REPOSITIONED FOR COMFORT.
--- NOTE | 2017-06-09 07:45 | NUR ---
RESTING QUIETLY RESP UNLABORED NAD NOTED
[2017-06-09 07:49] VITALS: BP 100/57
[2017-06-09 11:48] VITALS: BP 135/78
[2017-06-09 15:21] VITALS: BP 104/50
--- NOTE | 2017-06-09 16:19 | NUR ---
LYING QUIETLY WITH HEAD OF BED UP. FAMILY AT BEDSIDE. STATES PAIN IS ALMOST GONE. WILL MONITOR
[2017-06-09 19:00] VITALS: BP 126/63
--- NOTE | 2017-06-09 19:38 | NUR ---
INITIAL ROUNDS COMPLETED AT 1930 HRS. PT DENIED ANY DISCOMFORT. ASSESSMENT COMPLETED AT THAT TIME. IV TO L HAND SL. O2 2LNC. LUNGS DIMINISHED IN BASES BILAT. R ARM RED. HEELS BRIDGED. CHINCHILLA DRAINING YELLOW URINE. WILL CONTINUE TO MONITOR. SR UP X2, CALL LIGHT WITHIN REACH.
--- NOTE | 2017-06-09 22:01 | NUR ---
PM MES GIVEN.. WILL CONTINUE TO MONITOR.
--- NOTE | 2017-06-09 23:20 | NUR ---
PT RESTING WITH EYES CLOSED. RESP EVEN AND REGULAR. SR UPX2, CALL LIGHT WITHIN REACH.
[2017-06-10] VITALS: BP 129/77
--- NOTE | 2017-06-10 02:20 | NUR ---
PT RESTING WITH EYES CLOSED. RESP EVEN AND REGULAR. SR UP X2, CALL LIGHT WITHIN REACH.
[2017-06-10 04:00] VITALS: BP 101/54
--- NOTE | 2017-06-10 04:36 | NUR ---
PT RESTING WITH EYES CLOSED. RESP EVEN AND REGULAR. SR UP X2, CALL LIGHT WITHIN REACH.
[2017-06-10 05:11] LABS: BASOPHILS 0.2 % (0-2); EOSINOPHILS 12.4 % (0-7); HEMATOCRIT 37.3 % (36.0-48.0); HEMOGLOBIN 11.7 g/dL (12-16); IMMATURE GRANULOCYTES 0.4 % (0-5); LYMPHOCYTES 29.5 % (15-50); MCH 28.6 pg (26.0-34.0); MCHC 31.4 g/dL (31.0-37.0); MCV 91.2 fL (80.0-100.0); MEAN PLATELET VOLUME 10.6 fL (7.4-10.4); MONOCYTES 11.1 % (2-11); NEUTROPHILS 46.4 % (40-80); PLATELET COUNT 215 10x3/uL (130-400); RBC 4.09 10x6/uL (4.00-5.40); RDW 15.1 % (11.5-14.5); WBC 5.4 10x3/uL (4.8-10.8)
[2017-06-10 05:23] LABS: ANION GAP 6.8 mmol/L (8-16); CALCIUM 8.2 mg/dL (8.5-10.1); CARBON DIOXIDE 35.8 mmol/L (21.0-32.0); POTASSIUM - SERUM 3.6 mmol/L (3.5-5.1)
--- NOTE | 2017-06-10 06:05 | NUR ---
VSS THROUGHOUT NIGHT. SR PER CM. PT STATED SHE SLEPT WELL DURING NIGHT. NEEDS MET; WILL CONTINUE TO MONITOR.
--- NOTE | 2017-06-10 07:20 | NUR ---
REPORT RECIVED. PT RESTING QUIETLY, RR EVEN AND UNLABORED. PT RECIEVEING BREATHING TX. DENIES NEEDS AT THIS TIME. INTRODUCED SELF AND PLACED NAME ON WHITE BOARD. PT ALERT AND ORIENTED X4. WILL CTM.
[2017-06-10 08:13] VITALS: BP 153/79
[2017-06-10 11:58] VITALS: BP 149/84
[2017-06-10 15:40] VITALS: BP 110/62
--- NOTE | 2017-06-10 18:44 | NUR ---
PT RESTING QUIETLY, RR EVEN AND UNLABORED, WILL GIVE REPORT ON PT CONDITION FOR THE DAY.
[2017-06-10 19:20] VITALS: BP 91/58
[2017-06-11 00:40] VITALS: BP 108/66
[2017-06-11 04:30] VITALS: BP 103/57
[2017-06-11 04:51] LABS: BASOPHILS 0.2 % (0-2); EOSINOPHILS 11.1 % (0-7); HEMATOCRIT 36.2 % (36.0-48.0); HEMOGLOBIN 11.4 g/dL (12-16); IMMATURE GRANULOCYTES 0.2 % (0-5); LYMPHOCYTES 33.5 % (15-50); MCH 29.2 pg (26.0-34.0); MCHC 31.5 g/dL (31.0-37.0); MCV 92.6 fL (80.0-100.0); MEAN PLATELET VOLUME 10.5 fL (7.4-10.4); MONOCYTES 8.8 % (2-11); NEUTROPHILS 46.2 % (40-80); PLATELET COUNT 213 10x3/uL (130-400); RBC 3.91 10x6/uL (4.00-5.40); RDW 15.5 % (11.5-14.5); WBC 6.2 10x3/uL (4.8-10.8)
[2017-06-11 05:07] LABS: ANION GAP 7.2 mmol/L (8-16); CARBON DIOXIDE 35.5 mmol/L (21.0-32.0); CREATININE - SERUM 1.1 mg/dL (0.6-1.3); POTASSIUM - SERUM 3.7 mmol/L (3.5-5.1)
--- NOTE | 2017-06-11 07:14 | NUR ---
REPORT RECIEVED. RR EVEN AND UNLAOBRED. PT ALERT AND ORIENTED X4. DENIES NEEDS AT THIS TIME. WILL CTM.
[2017-06-11 08:00] VITALS: BP 136/66
[2017-06-11 13:34] VITALS: BP 104/53
[2017-06-11 17:18] VITALS: BP 151/73
--- NOTE | 2017-06-11 18:15 | NUR ---
PT RESTING COMFORTABLY, FAMILY AT BEDSIDE. PT DENIES NEEDS AT THIS TIME, WILL GIVE REPORT ON PT CONDITION FOR THE DAY.
[2017-06-11 19:00] VITALS: BP 170/68
[2017-06-12] VITALS: BP 126/70
--- NOTE | 2017-06-12 02:53 | NUR ---
CALL LIGHT IN REACH, WILL CONTINUE WITH PLAN OF CARE.
[2017-06-12 04:03] VITALS: BP 116/62
[2017-06-12 05:53] LABS: BASOPHILS 0 % (0-2); EOSINOPHILS 10.9 % (0-7); HEMOGLOBIN 11.4 g/dL (12-16); IMMATURE GRANULOCYTES 0.2 % (0-5); LYMPHOCYTES 29.8 % (15-50); MCH 28.6 pg (26.0-34.0); MCHC 30.8 g/dL (31.0-37.0); MEAN PLATELET VOLUME 10.9 fL (7.4-10.4); MONOCYTES 9.9 % (2-11); NEUTROPHILS 49.2 % (40-80); PLATELET COUNT 202 10x3/uL (130-400); RBC 3.98 10x6/uL (4.00-5.40); RDW 15.1 % (11.5-14.5); WBC 6.1 10x3/uL (4.8-10.8)
[2017-06-12 06:05] LABS: CALCIUM 8.3 mg/dL (8.5-10.1); CARBON DIOXIDE 34.4 mmol/L (21.0-32.0); CREATININE - SERUM 1.1 mg/dL (0.6-1.3); POTASSIUM - SERUM 3.4 mmol/L (3.5-5.1)
--- NOTE | 2017-06-12 07:25 | NUR ---
REPORT RECIEVED. RR EVEN AND UNLABORED, PT DENIES NEEDS AT THIS TIME. ASSESSMENT PERFORMED. WILL CTM.
[2017-06-12 08:00] VITALS: BP 137/68
--- NOTE | 2017-06-12 10:05 | NUR ---
SPOKE TO BIANCA GUEVARA ABOUT PTS PAIN MEDICATION ORDER EXPIRING. GAVE VERBAL ORDER TO RESTART PAIN MEDS. WILL GIVE AND CTM.
[2017-06-12 12:00] VITALS: BP 112/54
--- NOTE | 2017-06-12 13:23 | NUR ---
Nutrition Follow Up: Pt stated that her appetite is good. She denied any difficulty swallowing. Pt is eating 85% meal avg on an AHA diet. +BM 06/05/17. Labs reviewed. Meds noted including Lasix. Rec continue current diet. RD following.
[2017-06-12] MEDS ORDERED: IPRAT-ALBUT 0.5-3 ML UPD (13:31)
--- NOTE | 2017-06-12 15:47 | NUR ---
Patient Name: SHARIF GRANT Encounter No: [id number] : 1945 Primary Insurance: MEDICARE A & B Anticipated DC Date: 06-12-2017 Planned Disposition: Home with Home Health External Planned Provider: [facility] DCP follow-up note: CM RECEIVED ORDER FOR NEB AND OXYGEN AT HOME. CM MET WITH PT AND SPOUSE IN ROOM, DISCUSSED DISCHARGE PLANNING AND NEEDS. PT WANTS HOME HEALTH WITH [facility] AND EQUIPMENT THROUGH [facility]. PT HAS HAD [facility] IN THE PAST AND WANTS A DIFFERENT COMPANY. CHOICE LETTER FOR HOME HEALTH SIGNED. IMPORTANT MESSAGE FROM MEDICARE PROVIDED AND DISCUSSED. CM CALLED [facility], , SPOKE TO JUAN AND PROVIDED REFERRAL, ADMIT FOR SUNDAY. CM FAXED REFERRAL TO [facility] AT [phone]. CM CALLED [facility], , SPOKE TO SALONI AND PROVIDED REFERRAL FOR OXYGEN AND NEBULIZER FOR HOSPITAL DELIVERY TODAY FOR DISCHARGE HOME. [facility] TO ARRANGE HOME DELIVERY OF HOME CONCENTRATOR AFTER PT ARRIVES AT HOME TODAY. CM FAXED REFERRAL TO [facility] AT [phone]. CM NOTIFIED PT AND SPOUSE, BOTH IN AGREEMENT WITH HOME HEALTH ADMIT ON SUNDAY AND DISCHARGE TODAY. PT'S SPOUSE TO TRANSPORT PT HOME TODAY AT DISCHARGE. GRADE TEACHER NOTIFIED. Jose Cruz, CASE MANAGEMENT
[2017-06-12 16:00] VITALS: BP 123/69
[2017-06-12] MEDS ORDERED: EFFEXOR XR150 MG PO (16:16)
[2017-06-12] MEDS ORDERED: TOPROL XL25 MG PO (16:40)
--- NOTE | 2017-06-12 17:56 | NUR ---
PT DISCHARGED. IV CATHETER REMOVED WITH CATHETER TIP INATCT. CHINCHILLA CATHETER REMOVED WITH BALLOON INACT. D/C INSTRUCTIONS PROVIDED, PT AND FAMILY VERBALIZED UNDERSTANDING. PT DENIES FURTHER NEEDS, WILL BE TAKEN DOWN VIA WHEELCHAIR AND ASSISTED TO VEHICLE WITH 2 PERSON ASSIST. PT PLACED ON HOME PORTABLE O2 FOR TRANSPORT. WILL BE GOING HOME WITH IN PERSONAL VEHICHLE.
--- NOTE | 2017-06-14 12:22 | CN ---
PATIENT NAME:SHARIF GRANT MEDICAL RECORD: [id number] : 45 LOCATION:. D.2121 ADMIT DATE: 06/01/17 ACCOUNT: [id number] CONSULTING PHYSICIAN: JANAY BYERS MD REFERRING PHYSICIAN: MYONR LANE M.D. DATE OF CONSULTATION: 06/01/2017 DIAGNOSES: 1. Increased troponin. 2. Renal insufficiency. 3. Recent pneumonia. 4. Shortness of breath. 5. CONTRAST ALLERGY. 6. Cardiomyopathy, chronic systolic dysfunction. HISTORY OF PRESENT ILLNESS: Mrs. Grant presents with increased shortness of breath. She was just admitted with pneumonia. At that time, she had an echocardiogram showed ejection fraction of 40%. She has not had any chest pain or chest discomfort. She does have an elevated troponin at 0.107. She has no EKG changes on her EKG and has had no anginal chest discomfort. She does have a history of coronary artery disease, previous cardiac stenting in the distant past. PHYSICAL EXAMINATION: GENERAL APPEARANCE: Well-nourished, well-developed, appears stated age. Level of distress, comfortable. PSYCHIATRIC: Mental status, alert, normal affect. Orientation, oriented to time, place and person. EYES: Lids and conjunctiva, noninjected. No discharge, no pallor. ENT: Lips, teeth, gums, normal dentition. Oropharynx, no cyanosis, no pallor. NECK: Carotid arteries, bilateral normal upstroke, no bruits, no thrills. JUGULAR VEINS: No jugular venous pressure or distention. CERVICAL LYMPH NODES: Nontender, nonenlarged. THYROID: Not enlarged. Nontender. No nodules. LUNGS: Respiratory effort, unlabored. CHEST: Normal curvature. No thoracic deformity. No chest wall tenderness. Percussion, resonant. Auscultation, clear. No wheezes, no rales, no rhonchi. CARDIOVASCULAR: Precordial exam, nondisplaced. No heaves or pericardial thrills. Rate and rhythm, regular. Heart sounds, normal S1, normal S2. No S3, no gallop, no rub. Systolic murmur, not heard. Diastolic murmur, not heard. EXTREMITIES: No cyanosis, no edema. Peripheral pulses, full and equal in all extremities, except as noted. No bruits appreciated. ABDOMEN: Soft, nondistended. Normal aorta. No bruit. Nontender. No masses. Liver, nontender, no hepatomegaly. Spleen, nontender, no splenomegaly. MUSCULOSKELETAL: No joint tenderness. No joint swelling. No erythema. NEUROLOGICAL: Normal gait, normal strength, normal tone. SKIN: Warm and dry. REVIEW OF SYSTEMS: The patient reports easy bruising but reports no swollen glands. The patient reports no fever, no night sweats, no significant weight gain, no significant weight loss. No significant exercise tolerance. The patient reports no dry eyes, no irritation, no vision change. Patient reports no difficulty hearing and no ear pain. Patient reports no frequent nose bleeds or nose and sinus problems. Patient reports on arm pain on exertion. No shortness of breath while lying down. No history of heart murmur. Patient CONSULT REPORT [id number] SHARIF GRANT reports no cough, no wheezing or coughing up blood. Patient reports no abdominal pain, no vomiting. Normal appetite. No diarrhea and not vomiting blood. No nausea and no constipation. Patient reports no incontinence. No difficulty urinating. No hematuria. No increased frequency. Patient reports no muscle aches. No weakness, no arthralgias, no back pain. No swelling of the extremities. Patient reports no abnormal mole, no jaundice, no rashes. Reports no loss of consciousness. No weakness and no numbness. No seizures, dizziness, or headaches. The patient reports no depression, no sleep disturbance, feeling safe in a relationship and no alcohol abuse. Patient reports on fatigue. Reports no runny nose or sinus pressure. No itching, no hives, and no frequent sneezing. OVERALL IMPRESSION: Elevated troponin, no chest pain, no EKG changes. In light of worsening renal insufficiency at this time, did not need to do repeat coronary angiography. We will proceed with medical management from a cardiac standpoint. Further care depends upon her clinical course with medical management. TRANSINT:[id number] Voice Confirmation ID: [id number] DOCUMENT ID: [id number] JANAY BYERS MD at 1222 CC: [id number] DICTATION DATE: 06/01/17 1444 BRAKE DRUM MOLDER: 06/01/17 1833 DIS IN 06/12/17 [place] [address]
--- NOTE | 2017-06-14 12:22 | OP ---
PATIENT NAME: SHARIF GRANT MEDICAL RECORD: [id number] :[birth year] LOCATION:D.M2 D.2121 ADMISSION DATE:06/01/17 SURGEON: JANAY BYERS MD DATE OF OPERATION: 06/05/2017 PROCEDURES: 1. PTCA stent RCA. 2. Left heart catheterization. 3. Selective coronary angiography. 4. Left ventriculogram. INDICATION: Angina, non-Q-wave myocardial infarction and coronary artery disease. PROCEDURE IN DETAIL: After informed consent was obtained and after a detailed explanation of the risks, benefits as well as alternative therapies, the patient elected to proceed with angiogram and angioplasty. The right femoral area was prepped and draped in normal sterile fashion. The right femoral artery was cannulated via modified Seldinger technique with placement of 6-Cymro sheath. All catheters exchanged through this sheath. FINDINGS: The left ventriculogram was performed in standard 30-degree MARVIN view, reveals global hypokinesis, ejection fraction mildly depressed at 40%. SELECTIVE CORONARY ANGIOGRAPHY: 1. Left main is with no significant angiographic disease. 2. Left anterior descending is widely patent. There is a relatively small diagonal, but has a 90% stenosis, but this does not cover very much myocardium. 3. The left circumflex is chronically totally occluded, fills via left to left collaterals. 4. Right coronary is a very large dominant vessel with 99% stenosis in the mid vessel. PTCA STENT OF THE RIGHT CORONARY: The stent used was a 3.0 x 15 mm Lincoln. Result was 0% residual stenosis. OVERALL IMPRESSION: Successful percutaneous transluminal coronary angioplasty stent of the right coronary artery going from 99% initial stenosis to 0% residual stenosis. TRANSINT:[id number] Voice Confirmation ID: [id number] DOCUMENT ID: [id number] JANAY BYERS MD at 1222 CC: [id number] DICTATION DATE: 06/05/17809 PULP MIXER: 06/05/17 08 DIS IN 06/12/[address] [address]
== END 2017-06-12 17:59 | disposition home health service (06) | DRG 246 ==
LOC: D.ER 11:18 → D.M2 14:43
PROVIDERS: Emergency Medicine; Internal Medicine Interventional Cardiology; Internal Medicine Pulmonary Disease; Nurse Practitioner Family; ADMIT Family Medicine
PROC: 0T9B70Z Drainage of Bladder with Drainage Device, Via Natural or Artificial Opening (ICD-10-PCS; 2017-06-01)
PROC: B2111ZZ Fluoroscopy of Multiple Coronary Arteries using Low Osmolar Contrast (ICD-10-PCS; 2017-06-05)
PROC: B2151ZZ Fluoroscopy of Left Heart using Low Osmolar Contrast (ICD-10-PCS; 2017-06-05)
PROC: 027034Z Dilation of Coronary Artery, One Artery with Drug-eluting Intraluminal Device, Percutaneous Approach (ICD-10-PCS; principal; 2017-06-05 07:07)
PROC: 4A023N7 Measurement of Cardiac Sampling and Pressure, Left Heart, Percutaneous Approach (ICD-10-PCS; 2017-06-05 07:07)
DX: I21.4 Non-ST elevation (NSTEMI) myocardial infarction (principal); G93.41 Metabolic encephalopathy; J69.0 Pneumonitis due to inhalation of food and vomit; J15.6 Pneumonia due to other Gram-negative bacteria; J15.212 Pneumonia due to Methicillin resistant Staphylococcus aureus; I42.9 Cardiomyopathy, unspecified; J98.11 Atelectasis; J44.1 Chronic obstructive pulmonary disease with (acute) exacerbation; I13.0 Hypertensive heart and chronic kidney disease with heart failure and stage 1 through stage 4 chronic kidney disease, or unspecified chronic kidney disease; I50.22 Chronic systolic (congestive) heart failure; N17.9 Acute kidney failure, unspecified; J44.0 Chronic obstructive pulmonary disease with (acute) lower respiratory infection; I25.119 Atherosclerotic heart disease of native coronary artery with unspecified angina pectoris; I65.23 Occlusion and stenosis of bilateral carotid arteries; I08.1 Rheumatic disorders of both mitral and tricuspid valves; F41.8 Other specified anxiety disorders; K21.9 Gastro-esophageal reflux disease without esophagitis; I73.9 Peripheral vascular disease, unspecified; N18.9 Chronic kidney disease, unspecified; E03.9 Hypothyroidism, unspecified; Z86.73 Personal history of transient ischemic attack (TIA), and cerebral infarction without residual deficits; G70.00 Myasthenia gravis without (acute) exacerbation

== ENCOUNTER → 2017-07-02 12:53 | Outpatient (CLI) | payer MEDICARE, OTHER ==
[2017-06-02 11:58] VITALS: BMI 34.3
[~2017-07-02 12:53] MED LIST changes: +EFFEXOR XR150 MG; +EFFEXOR XR150 MG PO; +IPRAT-ALBUT 0.5-3 ML UPD; +TOPROL XL25 MG PO
== END | disposition home or self-care (01) ==
LOC: D.RAD 06-28 13:00
DX: R13.12 Dysphagia, oropharyngeal phase (principal)

== ENCOUNTER → 2017-08-16 16:36 | Outpatient (CLI) | payer MEDICARE, OTHER ==
[2017-06-02 11:58] VITALS: BMI 34.3
== END | disposition home or self-care (01) ==
LOC: D.MAMMO 09:30 → D.US 10:30 → D.MAMMO 14:00
DX: R92.8 Other abnormal and inconclusive findings on diagnostic imaging of breast (principal)

== ENCOUNTER → 2017-10-08 13:34 | Outpatient (CLI) | payer MEDICARE, OTHER ==
[2017-06-02 11:58] VITALS: BMI 34.3
== END | disposition home or self-care (01) ==
LOC: D.RT 09-19 13:00 → D.RAD 09-19 13:45 → D.RT 13:34
DX: J44.9 Chronic obstructive pulmonary disease, unspecified (principal)

== ENCOUNTER 2017-11-16 17:47 | Inpatient (IN) | payer MEDICARE, OTHER ==
[~2017-11-16] VITALS: Ht 168.9 cm; Wt 89.6 kg
[2017-11-16] VITALS: BP 125/61
[2017-11-16 18:15] LABS: BASOPHILS 0.1 % (0-2); EOSINOPHILS 0.9 % (0-7); HEMATOCRIT 42.4 % (36.0-48.0); HEMOGLOBIN 13.3 g/dL (12-16); IMMATURE GRANULOCYTES 0.3 % (0-5); LYMPHOCYTES 9.8 % (15-50); MCH 28.1 pg (26.0-34.0); MCHC 31.4 g/dL (31.0-37.0); MCV 89.6 fL (80.0-100.0); MEAN PLATELET VOLUME 10.5 fL (7.4-10.4); NEUTROPHILS 81.9 % (40-80); RBC 4.73 10x6/uL (4.00-5.40); RDW 15.7 % (11.5-14.5); WBC 11.7 10x3/uL (4.8-10.8)
[2017-11-16 18:16] LABS: PLATELET COUNT 151 10x3/uL (130-400)
[2017-11-16 18:48] LABS: ALBUMIN 3.3 g/dL (3.4-5.0); ALKALINE PHOSPHATASE 81 U/L (46-116); ALT (SGPT) 19 U/L (10-68); BILIRUBIN - TOTAL 0.53 mg/dL (0.2-1.3); CALC OSMOLALITY 283 mosm/kg (275-300); CALCIUM 8.4 mg/dL (8.5-10.1); CHLORIDE - SERUM 101 mmol/L (98-107); CREATININE - SERUM 1.3 mg/dL (0.6-1.3); GLUCOSE 113 mg/dL (74-106); POTASSIUM - SERUM 3.6 mmol/L (3.5-5.1); PROTEIN - SERUM 7.5 g/dL (6.4-8.2); SODIUM 140 mmol/L (136-145); UREA NITROGEN 25 mg/dL (7-18); eGFR NON AFRICAN AMERICAN 43 mL/min (90-120)
[2017-11-16 19:01] LABS: CREATINE KINASE 41 UL (21-215); PRO BNP 784 pg/mL (0-125)
[2017-11-16 19:05] LABS: TROPONIN-I < 0.017 ng/mL (0.000-0.060)
[2017-11-16 22:06] LABS: APPEARANCE CLEAR (CLEAR); BACTERIA MODERATE /hpf (NONE SEEN); BILIRUBIN NEGATIVE (NEGATIVE); COLOR YELLOW (YELLOW); EPITHELIAL CELLS 0-5 /hpf (0-5); GLUCOSE NEGATIVE (NEGATIVE); KETONE NEGATIVE (NEGATIVE); NITRITE POSITIVE (NEGATIVE); PROTEIN NEGATIVE (NEGATIVE); RED CELLS - URINE OCC /hpf (0-5); UROBILINOGEN NORMAL (NORMAL); WHITE CELLS - URINE 0-5 /hpf (0-5)
[2017-11-16] MEDS ORDERED: SYNTHROID75 MCG PO (23:42)
[2017-11-16] MEDS ORDERED: NORVASC10 MG PO (23:44)
[2017-11-16] MEDS ORDERED: PRAMOSONE TP (23:45)
[2017-11-17 05:50] VITALS: BP 125/68; BMI 32.1
[2017-11-17 06:57] VITALS: BP 115/59
[2017-11-17 10:27] VITALS: BP 132/65
[2017-11-17 11:20] VITALS: Ht 168.9 cm; Wt 89.6 kg
[2017-11-17 12:45] VITALS: BP 142/64
[2017-11-17 16:25] VITALS: BP 124/60
[2017-11-17 20:49] VITALS: BP 126/68
[2017-11-18 06:33] VITALS: BP 90/56
[2017-11-18 06:43] LABS: BASOPHILS 0.2 % (0-2); EOSINOPHILS 3.4 % (0-7); HEMATOCRIT 38.7 % (36.0-48.0); HEMOGLOBIN 12.1 g/dL (12-16); IMMATURE GRANULOCYTES 0.2 % (0-5); LYMPHOCYTES 16.3 % (15-50); MCH 28.1 pg (26.0-34.0); MCHC 31.3 g/dL (31.0-37.0); MCV 89.8 fL (80.0-100.0); MONOCYTES 8.1 % (2-11); NEUTROPHILS 71.8 % (40-80); PLATELET COUNT 158 10x3/uL (130-400); RBC 4.31 10x6/uL (4.00-5.40); RDW 15.5 % (11.5-14.5); WBC 6.4 10x3/uL (4.8-10.8)
[2017-11-18 06:56] LABS: ANION GAP 10.3 mmol/L (8-16); CALCIUM 7.8 mg/dL (8.5-10.1); CREATININE - SERUM 1.1 mg/dL (0.6-1.3); POTASSIUM - SERUM 3.3 mmol/L (3.5-5.1)
[2017-11-18 09:46] VITALS: BP 103/61
[2017-11-18 16:09] VITALS: BP 112/54
[2017-11-18 20:30] VITALS: BP 104/51
[2017-11-19 00:30] VITALS: BP 120/50
[2017-11-19 03:39] LABS: BASOPHILS 0.2 % (0-2); EOSINOPHILS 4.5 % (0-7); HEMATOCRIT 37.8 % (36.0-48.0); HEMOGLOBIN 11.8 g/dL (12-16); IMMATURE GRANULOCYTES 0.2 % (0-5); LYMPHOCYTES 18.3 % (15-50); MCH 28.1 pg (26.0-34.0); MCHC 31.2 g/dL (31.0-37.0); MEAN PLATELET VOLUME 10.2 fL (7.4-10.4); MONOCYTES 9.3 % (2-11); NEUTROPHILS 67.5 % (40-80); PLATELET COUNT 152 10x3/uL (130-400); RDW 15.5 % (11.5-14.5); WBC 5.4 10x3/uL (4.8-10.8)
[2017-11-19 03:49] LABS: ANION GAP 9.3 mmol/L (8-16); CALCIUM 7.5 mg/dL (8.5-10.1); CARBON DIOXIDE 31.1 mmol/L (21.0-32.0); CREATININE - SERUM 1.2 mg/dL (0.6-1.3); POTASSIUM - SERUM 3.4 mmol/L (3.5-5.1)
[2017-11-19 04:30] VITALS: BP 120/52
[2017-11-19 08:32] VITALS: BP 124/64
[2017-11-19 11:46] VITALS: BP 132/63
[2017-11-19 15:26] VITALS: BP 131/61
[2017-11-19 20:43] VITALS: BP 126/58
[2017-11-20] VITALS: BP 134/66
[2017-11-20 04:00] VITALS: BP 139/61
[2017-11-20 06:16] LABS: HEMATOCRIT 38.4 % (36.0-48.0); HEMOGLOBIN 12.2 g/dL (12-16); LYMPHOCYTES 23.8 % (15-50); MCH 28.3 pg (26.0-34.0); MCHC 31.8 g/dL (31.0-37.0); MCV 89.1 fL (80.0-100.0); MEAN PLATELET VOLUME 10.2 fL (7.4-10.4); PLATELET COUNT 176 10x3/uL (130-400); RBC 4.31 10x6/uL (4.00-5.40); RDW 15.1 % (11.5-14.5); WBC 4.4 10x3/uL (4.8-10.8)
[2017-11-20 06:24] LABS: ANION GAP 9.7 mmol/L (8-16); CALCIUM 7.8 mg/dL (8.5-10.1); CARBON DIOXIDE 31.7 mmol/L (21.0-32.0); CREATININE - SERUM 1.1 mg/dL (0.6-1.3); POTASSIUM - SERUM 3.4 mmol/L (3.5-5.1)
[2017-11-20 09:13] VITALS: BP 125/64
[2017-11-20 13:46] VITALS: BP 146/72
[2017-11-20 17:46] VITALS: BP 152/79
[2017-11-20 20:00] VITALS: BP 158/62
[2017-11-21 04:00] VITALS: BP 121/63
[2017-11-21 06:02] LABS: BASOPHILS 0.2 % (0-2); EOSINOPHILS 5.8 % (0-7); HEMATOCRIT 39.4 % (36.0-48.0); HEMOGLOBIN 12.2 g/dL (12-16); IMMATURE GRANULOCYTES 0.4 % (0-5); LYMPHOCYTES 23.2 % (15-50); MCH 28.2 pg (26.0-34.0); MEAN PLATELET VOLUME 10.4 fL (7.4-10.4); MONOCYTES 10.6 % (2-11); NEUTROPHILS 59.8 % (40-80); PLATELET COUNT 187 10x3/uL (130-400); RBC 4.33 10x6/uL (4.00-5.40); RDW 15.4 % (11.5-14.5); WBC 5.2 10x3/uL (4.8-10.8)
[2017-11-21 06:59] LABS: ANION GAP 12.8 mmol/L (8-16); CALCIUM 7.9 mg/dL (8.5-10.1); CARBON DIOXIDE 30.5 mmol/L (21.0-32.0); CREATININE - SERUM 0.9 mg/dL (0.6-1.3); POTASSIUM - SERUM 3.3 mmol/L (3.5-5.1)
[2017-11-21 09:10] VITALS: BP 144/69
[2017-11-21 12:16] VITALS: BP 132/59
[2017-11-21 16:45] VITALS: BP 160/75
[2017-11-21 20:00] VITALS: BP 139/72
[2017-11-22 05:31] LABS: BASOPHILS 0.6 % (0-2); HEMATOCRIT 41.2 % (36.0-48.0); IMMATURE GRANULOCYTES 0.4 % (0-5); LYMPHOCYTES 20.8 % (15-50); MCH 28.4 pg (26.0-34.0); MCHC 31.6 g/dL (31.0-37.0); MEAN PLATELET VOLUME 10.3 fL (7.4-10.4); MONOCYTES 8.6 % (2-11); NEUTROPHILS 64.6 % (40-80); PLATELET COUNT 199 10x3/uL (130-400); RBC 4.58 10x6/uL (4.00-5.40); RDW 15.4 % (11.5-14.5); WBC 6.8 10x3/uL (4.8-10.8)
[2017-11-22 05:44] LABS: ANION GAP 10.7 mmol/L (8-16); CALCIUM 8.6 mg/dL (8.5-10.1); CARBON DIOXIDE 31.6 mmol/L (21.0-32.0); CREATININE - SERUM 1.1 mg/dL (0.6-1.3); POTASSIUM - SERUM 3.3 mmol/L (3.5-5.1)
[2017-11-22 06:12] VITALS: BP 137/75
[2017-11-22 08:38] VITALS: BP 132/71
[2017-11-22 12:30] VITALS: BP 100/65
[2017-11-22 20:00] VITALS: BP 114/51
[2017-11-23 04:00] VITALS: BP 108/79
[2017-11-23 08:48] VITALS: BP 132/60
[2017-11-23 11:46] VITALS: BP 147/74
[2017-11-23] MEDS ORDERED: ZITHROMAX500 MG PO (15:49)
== END 2017-11-23 16:43 | disposition home or self-care (01) | DRG 177 ==
LOC: D.ER 17:47 → D.M2 19:30 → D.EDHOLD 19:30 → D.M2 20:15
PROVIDERS: Family Medicine; Internal Medicine Nephrology
DX: J15.6 Pneumonia due to other Gram-negative bacteria (principal); J96.01 Acute respiratory failure with hypoxia; N17.9 Acute kidney failure, unspecified; N39.0 Urinary tract infection, site not specified; J44.1 Chronic obstructive pulmonary disease with (acute) exacerbation; J18.9 Pneumonia, unspecified organism; I10 Essential (primary) hypertension; I25.10 Atherosclerotic heart disease of native coronary artery without angina pectoris; J13 Pneumonia due to Streptococcus pneumoniae

== ENCOUNTER 2017-12-23 16:06 | Inpatient (IN) | payer MEDICARE, OTHER ==
[~2017-12-23] VITALS: Ht 168.9 cm; Wt 91.4 kg
[~2017-12-23 16:06] MED LIST changes: +PRAMOSONE TP; +SYNTHROID75 MCG PO; +ZITHROMAX500 MG PO
[2017-12-23 17:03] LABS: ALBUMIN 3.3 g/dL (3.4-5.0); ALKALINE PHOSPHATASE 108 U/L (46-116); ALT (SGPT) 18 U/L (10-68); BILIRUBIN - TOTAL 0.51 mg/dL (0.2-1.3); CALC OSMOLALITY 299 mosm/kg (275-300); CALCIUM 8.9 mg/dL (8.5-10.1); CARBON DIOXIDE 34.6 mmol/L (21.0-32.0); CHLORIDE - SERUM 105 mmol/L (98-107); CREATININE - SERUM 1.9 mg/dL (0.6-1.3); GLUCOSE 96 mg/dL (74-106); POTASSIUM - SERUM 4.1 mmol/L (3.5-5.1); PROTEIN - SERUM 7.9 g/dL (6.4-8.2); SODIUM 145 mmol/L (136-145); UREA NITROGEN 43 mg/dL (7-18); eGFR NON AFRICAN AMERICAN 27 mL/min (90-120)
[2017-12-23 17:04] LABS: BASOPHILS 0.2 % (0-2); HEMATOCRIT 42.6 % (36.0-48.0); IMMATURE GRANULOCYTES 0.3 % (0-5); LYMPHOCYTES 14.9 % (15-50); MCHC 30.5 g/dL (31.0-37.0); MCV 94.9 fL (80.0-100.0); MEAN PLATELET VOLUME 10.7 fL (7.4-10.4); MONOCYTES 8.4 % (2-11); NEUTROPHILS 74.2 % (40-80); PLATELET COUNT 202 10x3/uL (130-400); RBC 4.49 10x6/uL (4.00-5.40); WBC 13.1 10x3/uL (4.8-10.8)
[2017-12-23 17:14] LABS: CKMB 0.6 U/L (0.0-3.6); CREATINE KINASE 31 UL (21-215)
[2017-12-23 17:15] LABS: TROPONIN-I < 0.017 ng/mL (0.000-0.060)
[2017-12-23 17:16] LABS: APTT 27.6 SECONDS (22.8-39.4); INR 1.03 (0.85-1.17); PROTIME 13.1 SECONDS (11.6-15.0)
[2017-12-23 18:49] LABS: APPEARANCE HAZY (CLEAR); BILIRUBIN NEGATIVE (NEGATIVE); COLOR YELLOW (YELLOW); GLUCOSE NEGATIVE (NEGATIVE); KETONE NEGATIVE (NEGATIVE); NITRITE NEGATIVE (NEGATIVE); PROTEIN NEGATIVE (NEGATIVE); SPECIFIC GRAVITY 1.015 (1.005-1.020); UROBILINOGEN NORMAL (NORMAL)
[2017-12-23 18:52] LABS: BACTERIA MANY /hpf (NONE SEEN); EPITHELIAL CELLS 0-5 /hpf (0-5); GRANULAR CAST OCC /lpf (NONE SEEN); RED CELLS - URINE 0-5 /hpf (0-5)
[2017-12-23] MEDS ORDERED: ARICEPT10 MG PO ×2 (20:28→20:29)
[2017-12-23] MEDS ORDERED: DIOVAN320 MG PO (20:30)
[2017-12-23] MEDS ORDERED: FAMOTIDINE10 MG PO (20:31)
[2017-12-23] MEDS ORDERED: BENZONATATE200 MG PO (20:33)
[2017-12-23] MEDS ORDERED: NAMENDA XR28 MG PO (20:34)
[2017-12-23] MEDS ORDERED: FOLBIC RF TABL1 EACH PO (20:35)
[2017-12-23] MEDS ORDERED: FEXOFENADINE H180 MG PO (20:35)
[2017-12-23] MEDS ORDERED: MIRALAX17 GM PO (20:37)
[2017-12-23] MEDS ORDERED: ROBAXIN-750750 MG PO (20:38)
[2017-12-23] MEDS ORDERED: MYRBETRIQ50 MG PO ×2 (20:40→20:41)
[2017-12-23 23:54] VITALS: BP 152/83; BMI 32.0
[2017-12-24] VITALS (7 sets, daily range): BP systolic 116–196; BP diastolic 61–89; Ht 168.9 cm; Wt 91.4 kg
[2017-12-24 05:26] LABS: ANION GAP 9.6 mmol/L (8-16); BASOPHILS 0.1 % (0-2); CARBON DIOXIDE 32.6 mmol/L (21.0-32.0); EOSINOPHILS 2.8 % (0-7); HEMATOCRIT 38.6 % (36.0-48.0); HEMOGLOBIN 11.7 g/dL (12-16); IMMATURE GRANULOCYTES 0.3 % (0-5); LYMPHOCYTES 22.1 % (15-50); MCH 28.3 pg (26.0-34.0); MCHC 30.3 g/dL (31.0-37.0); MCV 93.5 fL (80.0-100.0); MEAN PLATELET VOLUME 10.8 fL (7.4-10.4); MONOCYTES 8.8 % (2-11); NEUTROPHILS 65.9 % (40-80); PLATELET COUNT 175 10x3/uL (130-400); POTASSIUM - SERUM 4.2 mmol/L (3.5-5.1); RBC 4.13 10x6/uL (4.00-5.40); RDW 15.9 % (11.5-14.5)
[2017-12-24 05:30] LABS: CREATININE - SERUM 1.3 mg/dL (0.6-1.3); WBC 7.9 10x3/uL (4.8-10.8)
[2017-12-25] VITALS (8 sets, daily range): BP systolic 131–158; BP diastolic 57–76
[2017-12-25 05:49] LABS: BASOPHILS 0.1 % (0-2); EOSINOPHILS 2.5 % (0-7); HEMATOCRIT 37.8 % (36.0-48.0); HEMOGLOBIN 11.6 g/dL (12-16); IMMATURE GRANULOCYTES 0.3 % (0-5); LYMPHOCYTES 27.9 % (15-50); MCH 28.4 pg (26.0-34.0); MCHC 30.7 g/dL (31.0-37.0); MCV 92.6 fL (80.0-100.0); MEAN PLATELET VOLUME 10.3 fL (7.4-10.4); MONOCYTES 8.2 % (2-11); PLATELET COUNT 152 10x3/uL (130-400); RBC 4.08 10x6/uL (4.00-5.40); RDW 15.3 % (11.5-14.5); WBC 7.3 10x3/uL (4.8-10.8)
[2017-12-25 06:17] LABS: ANION GAP 11.8 mmol/L (8-16); CALCIUM 7.8 mg/dL (8.5-10.1); CARBON DIOXIDE 29.8 mmol/L (21.0-32.0); CREATININE - SERUM 1.1 mg/dL (0.6-1.3); POTASSIUM - SERUM 3.6 mmol/L (3.5-5.1)
[2017-12-26 05:18] VITALS: BP 129/76
[2017-12-26 06:24] LABS: BASOPHILS 0.1 % (0-2); EOSINOPHILS 2.2 % (0-7); HEMATOCRIT 38.5 % (36.0-48.0); IMMATURE GRANULOCYTES 0.3 % (0-5); LYMPHOCYTES 21.9 % (15-50); MCH 28.7 pg (26.0-34.0); MCHC 31.2 g/dL (31.0-37.0); MCV 92.1 fL (80.0-100.0); MEAN PLATELET VOLUME 10.3 fL (7.4-10.4); MONOCYTES 8.4 % (2-11); NEUTROPHILS 67.1 % (40-80); PLATELET COUNT 160 10x3/uL (130-400); RBC 4.18 10x6/uL (4.00-5.40); RDW 15.1 % (11.5-14.5); WBC 7.7 10x3/uL (4.8-10.8)
[2017-12-26 06:30] LABS: ANION GAP 10.9 mmol/L (8-16); CALCIUM 7.4 mg/dL (8.5-10.1); CARBON DIOXIDE 31.3 mmol/L (21.0-32.0); POTASSIUM - SERUM 3.2 mmol/L (3.5-5.1)
[2017-12-26] MEDS ORDERED: LEVAQUIN500 MG PO (10:45)
[2017-12-26 10:52] VITALS: BP 98/72
== END 2017-12-26 13:55 | disposition home health service (06) | DRG 682 ==
LOC: D.ER 16:06 → D.M2 18:55
PROVIDERS: Family Medicine; Internal Medicine Nephrology
DX: N17.9 Acute kidney failure, unspecified (principal); G93.41 Metabolic encephalopathy; N39.0 Urinary tract infection, site not specified; I25.10 Atherosclerotic heart disease of native coronary artery without angina pectoris; I12.9 Hypertensive chronic kidney disease with stage 1 through stage 4 chronic kidney disease, or unspecified chronic kidney disease; N18.9 Chronic kidney disease, unspecified; J44.9 Chronic obstructive pulmonary disease, unspecified; K21.9 Gastro-esophageal reflux disease without esophagitis; G70.00 Myasthenia gravis without (acute) exacerbation; Z95.5 Presence of coronary angioplasty implant and graft; Z86.73 Personal history of transient ischemic attack (TIA), and cerebral infarction without residual deficits; Z86.711 Personal history of pulmonary embolism

== ENCOUNTER → 2018-02-27 21:25 | Outpatient (CLI) | payer MEDICARE, OTHER ==
[2017-12-24 10:56] VITALS: BMI 32.0
[~2018-02-27 21:25] MED LIST changes: +FAMOTIDINE10 MG PO; +FEXOFENADINE H180 MG PO; +FOLBIC RF TABL1 EACH PO; +LEVAQUIN500 MG PO
== END | disposition home or self-care (01) ==
LOC: D.MAMMO 02-18 09:30
DX: R92.8 Other abnormal and inconclusive findings on diagnostic imaging of breast (principal)

== ENCOUNTER → 2018-05-13 13:27 | Outpatient (CLI) | payer MEDICARE, OTHER ==
[2017-12-24 10:56] VITALS: BMI 32.0
== END | disposition home or self-care (01) ==
LOC: D.RT 05-10 14:00 → D.RAD 10:15 → D.RT 13:27
DX: J44.9 Chronic obstructive pulmonary disease, unspecified (principal)

== ENCOUNTER → 2018-10-25 17:34 | Outpatient (CLI) | payer MEDICARE, OTHER ==
[2017-12-24 10:56] VITALS: BMI 32.0
[2018-10-25 17:44] LABS: BASOPHILS 0.2 % (0-2); EOSINOPHILS 1.7 % (0-7); HEMATOCRIT 38.7 % (36.0-48.0); IMMATURE GRANULOCYTES 0.2 % (0-5); LYMPHOCYTES 19.8 % (15-50); MCH 29.7 pg (26.0-34.0); MCV 95.8 fL (80.0-100.0); MEAN PLATELET VOLUME 10.7 fL (7.4-10.4); MONOCYTES 9.6 % (2-11); NEUTROPHILS 68.5 % (40-80); RBC 4.04 10x6/uL (4.00-5.40); RDW 14.7 % (11.5-14.5)
[2018-10-25 17:56] LABS: ALBUMIN 2.9 g/dL (3.4-5.0); ANION GAP 10.2 mmol/L (8-16); BILIRUBIN - TOTAL 0.42 mg/dL (0.2-1.3); CALCIUM 7.9 mg/dL (8.5-10.1); CARBON DIOXIDE 34.8 mmol/L (21.0-32.0); PROTEIN - SERUM 7.2 g/dL (6.4-8.2)
[2018-10-25 18:12] LABS: PLATELET COUNT 196 10x3/uL (130-400)
== END | disposition home or self-care (01) ==
LOC: D.LABREF 17:34
PROVIDERS: Emergency Medicine
DX: E86.0 Dehydration (principal); R11.2 Nausea with vomiting, unspecified

== ENCOUNTER → 2018-10-29 17:00 | Outpatient (CLI) | payer MEDICARE, OTHER ==
[2017-12-24 10:56] VITALS: BMI 32.0
[~2018-10-29 17:00] MED LIST changes: +CARAFATE1 G PO; +COZAAR25 MG PO
[2018-10-29 17:54] LABS: APPEARANCE CLEAR (CLEAR); BILIRUBIN NEGATIVE (NEGATIVE); COLOR YELLOW (YELLOW); GLUCOSE NEGATIVE (NEGATIVE); KETONE NEGATIVE (NEGATIVE); NITRITE POSITIVE (NEGATIVE); PROTEIN NEGATIVE (NEGATIVE); SPECIFIC GRAVITY 1.015 (1.005-1.020); UROBILINOGEN NORMAL (NORMAL)
[2018-10-29 17:55] LABS: BACTERIA MANY /hpf (NONE SEEN); EPITHELIAL CELLS 0-5 /hpf (0-5); RED CELLS - URINE 0-5 /hpf (0-5); WHITE CELLS - URINE 25-50 /hpf (0-5)
== END | disposition home or self-care (01) ==
LOC: D.LABREF 17:00
PROVIDERS: Emergency Medicine
DX: N39.0 Urinary tract infection, site not specified (principal)

== ENCOUNTER 2018-11-11 11:16 | Inpatient (IN) | payer MEDICARE, OTHER ==
[~2018-11-11] VITALS: Ht 168.9 cm; Wt 102.3 kg
[~2018-11-11 11:16] MED LIST changes: -CARAFATE1 G PO; -COZAAR25 MG PO
[2018-11-11] MEDS ORDERED: COZAAR25 MG PO (11:24)
--- NOTE | 2018-11-11 11:56 | NUR ---
CLEAN CATCH IN AND OUT CATH, STERILE FIELD MAINTAINED. PT TOLERATED WELL. URINE SPECIMEN SENT TO LAB.
[2018-11-11 12:37] LABS: BASOPHILS 0 % (0-2); EOSINOPHILS 0.1 % (0-7); HEMATOCRIT 39.6 % (36.0-48.0); HEMOGLOBIN 12.8 g/dL (12-16); IMMATURE GRANULOCYTES 0.1 % (0-5); LYMPHOCYTES 9.1 % (15-50); MCH 30.1 pg (26.0-34.0); MCHC 32.3 g/dL (31.0-37.0); MCV 93.2 fL (80.0-100.0); MEAN PLATELET VOLUME 10.4 fL (7.4-10.4); MONOCYTES 9.2 % (2-11); NEUTROPHILS 81.5 % (40-80); PLATELET COUNT 207 10x3/uL (130-400); RBC 4.25 10x6/uL (4.00-5.40); RDW 14.6 % (11.5-14.5); WBC 8.8 10x3/uL (4.8-10.8)
--- NOTE | 2018-11-11 12:43 | NUR ---
TEMPERATURE RECHECK 99.5 TEMPORAL AT THIS TIME.
[2018-11-11 12:57] LABS: APPEARANCE CLEAR (CLEAR); BILIRUBIN NEGATIVE (NEGATIVE); COLOR YELLOW (YELLOW); GLUCOSE NEGATIVE (NEGATIVE); KETONE SMALL mg/dL (NEGATIVE); NITRITE NEGATIVE (NEGATIVE); PROTEIN 1+ mg/dL (NEGATIVE); UROBILINOGEN NORMAL (NORMAL)
[2018-11-11 12:59] LABS: BACTERIA MODERATE /hpf (NONE SEEN); EPITHELIAL CELLS OCC /hpf (0-5); MUCUS <1+ /lpf (NONE SEEN); RED CELLS - URINE 0-5 /hpf (0-5); WHITE CELLS - URINE RARE /hpf (0-5)
[2018-11-11 13:02] LABS: ALBUMIN 3.2 g/dL (3.4-5.0); ANION GAP 13.1 mmol/L (8-16); BILIRUBIN - TOTAL 0.51 mg/dL (0.2-1.3); CALCIUM 8.7 mg/dL (8.5-10.1); CARBON DIOXIDE 31.7 mmol/L (21.0-32.0); CREATININE - SERUM 1.2 mg/dL (0.6-1.3)
[2018-11-11 13:09] LABS: POTASSIUM - SERUM 2.8 mmol/L (3.5-5.1)
--- NOTE | 2018-11-11 13:12 | NUR ---
LAB CALLED WITH CRITICAL VALUE OF POTASSIUM 2.8
--- NOTE | 2018-11-11 15:44 | NUR ---
PT REPORT CALLED TO ROSENDA VERA. PT STABLE AT THIS TIME.
[2018-11-11 15:45] VITALS: BP 143/70
[2018-11-11 16:55] VITALS: BMI 35.8
[2018-11-11] MEDS ORDERED: CARAFATE1 G PO (17:26)
--- NOTE | 2018-11-11 19:20 | NUR ---
PATIENT RESTING IN BED WITH GUEST AT BEDSIDE. CLEANED PATIENT UP AND DID A FULL LINEN CHANGE AFTER INCONTINENT EPISODE. REVIEWED MEDS WITH PATIENT PER HER REQUEST. PATIENT DENIES OTHER NEEDS AT THIS TIME. BED IN LOWEST POSITION AND CALL LIGHT WITHIN REACH. ENCOURAGED THE PATIENT TO CALL IF SHE HAS NEEDS. WILL CONTINUE TO MONITOR.
[2018-11-11 21:00] VITALS: BP 158/76
[2018-11-12] VITALS: BP 166/88
--- NOTE | 2018-11-12 03:28 | NUR ---
CLEANED PATIENT UP AND CHANGED BOTTOM LINENS AFTER INCONTINET EPISODE. PATIENT DENIES OTHER NEEDS AT THIS TIME. BED IN LOWEST POSIITON AND CALL LIGHT WITHIN REACH. ENCOURAGED THE PATIENT TO CALL IF SHE HAS NEEDS. WILL CONTINUE TO MONITOR.
[2018-11-12 05:04] VITALS: BP 152/82
[2018-11-12 06:31] LABS: BASOPHILS 0.1 % (0-2); EOSINOPHILS 0.4 % (0-7); HEMATOCRIT 40.8 % (36.0-48.0); IMMATURE GRANULOCYTES 0.1 % (0-5); LYMPHOCYTES 18.1 % (15-50); MCH 29.4 pg (26.0-34.0); MCHC 31.9 g/dL (31.0-37.0); MCV 92.3 fL (80.0-100.0); MEAN PLATELET VOLUME 10.7 fL (7.4-10.4); MONOCYTES 11.8 % (2-11); NEUTROPHILS 69.5 % (40-80); PLATELET COUNT 200 10x3/uL (130-400); RBC 4.42 10x6/uL (4.00-5.40); RDW 14.6 % (11.5-14.5); WBC 7.8 10x3/uL (4.8-10.8)
[2018-11-12 06:34] LABS: ALBUMIN 3.1 g/dL (3.4-5.0); ANION GAP 12.6 mmol/L (8-16); BILIRUBIN - TOTAL 0.41 mg/dL (0.2-1.3); CALCIUM 8.6 mg/dL (8.5-10.1); CARBON DIOXIDE 31.5 mmol/L (21.0-32.0); CREATININE - SERUM 1.1 mg/dL (0.6-1.3); MAGNESIUM - SERUM 2.1 mg/dL (1.8-2.4); POTASSIUM - SERUM 3.1 mmol/L (3.5-5.1); PROTEIN - SERUM 8.1 g/dL (6.4-8.2)
[2018-11-12 07:12] VITALS: BP 157/72
--- NOTE | 2018-11-12 08:48 | NUR ---
AM MEDS GIVEN AT THIS TIME. WAITING ON PHARMACY TO BRING EFFEXOR. PT A/O X4, RESP EVEN AND NONLABORED ON RA. SCDS ON BILAT. PT DENIES ANY OTHER NEEDS AT THIS TIME. CALL LIGHT IN REACH,NAD NOTED, WILL CONTINUE TO MONITOR.
--- NOTE | 2018-11-12 08:58 | NUR ---
CALLLED PHARMACY AND SPOKE WITH VICTOR M, INFORMED HER THAT I NEED EFFEXOR FOR PT.
[2018-11-12 09:44] VITALS: Ht 168.9 cm; Wt 102.3 kg
[2018-11-12 11:42] VITALS: BP 130/62
--- NOTE | 2018-11-12 14:34 | NUR ---
16FRENCH CHINCHILLA CATHETER INSERTED USING STERILE TECHNIQUE. PT TOLREATED PROCEDURE WELL. PT DENIES ANY NEEDS AT THIS TIME. CALL LIGHT IN REACH,NAD NOTED, WILL CONTINUE TO MONITOR.
[2018-11-12 15:37] VITALS: BP 101/43
--- NOTE | 2018-11-12 17:43 | NUR ---
ASKED PT IF SHE WANTED A BED BATH, AND PT STATED " NOT TODAY".
--- NOTE | 2018-11-12 18:04 | NUR ---
PATIENT RESTING IN BED WITH GUEST AT BEDSIDE AND NO S/S OF DISTRESS. ADMINISTERED PAIN MEDS PER ORDERS. CLEARED PATIENT'S TRAY PER HER REQUEST. PATIENT DENIES OTHER NEEDS AT THIS TIME. BED IN LOWEST POSITION AND CALL LIGHT WITHIN REACH. ENCOURAGED THE PATIENT TO CALL IF SHE HAS NEEDS. WILL CONTINUE TO MONITOR.
[2018-11-12 20:00] VITALS: BP 127/57
--- NOTE | 2018-11-12 23:48 | NUR ---
PATIENT RESTING IN BED WITH EYES CLOSED AND NO S/S OF DISTRESS. BED IN LOWEST POSITION AND CALL LIGHT WITHIN REACH. WILL CONTINUE TO MONITOR.
[2018-11-13] VITALS (8 sets, daily range): BP systolic 107–153; BP diastolic 56–89
[2018-11-13 06:40] LABS: BASOPHILS 0.1 % (0-2); EOSINOPHILS 2.5 % (0-7); HEMATOCRIT 37.4 % (36.0-48.0); IMMATURE GRANULOCYTES 0.1 % (0-5); LYMPHOCYTES 21.2 % (15-50); MCH 29.6 pg (26.0-34.0); MCHC 32.1 g/dL (31.0-37.0); MCV 92.3 fL (80.0-100.0); MEAN PLATELET VOLUME 10.3 fL (7.4-10.4); MONOCYTES 12.9 % (2-11); NEUTROPHILS 63.2 % (40-80); PLATELET COUNT 194 10x3/uL (130-400); RBC 4.05 10x6/uL (4.00-5.40); RDW 14.7 % (11.5-14.5); WBC 8.1 10x3/uL (4.8-10.8)
[2018-11-13 07:00] LABS: ANION GAP 10.5 mmol/L (8-16); CARBON DIOXIDE 31.7 mmol/L (21.0-32.0); CREATININE - SERUM 1.3 mg/dL (0.6-1.3); POTASSIUM - SERUM 3.2 mmol/L (3.5-5.1)
--- NOTE | 2018-11-13 08:35 | NUR ---
AM MEDS GIVEN AT THIS TIME. PT A/O X4, RESP EVEN AND NONLABORED ON 3L NC. LT AC IV SL. CHINCHILLA CATHETER DRAINING YELLOW URINE TO GRAVITY. SCDS ON BILAT. PT DENIES ANY NEEDS AT THIS TIME. CALL LIGHT IN REACH, BEDSIDER RAILS X2, NAD NOTED, WILL CONTINUE TO MONITOR.
--- NOTE | 2018-11-13 11:57 | NUR ---
Rehab Prescreening Consult recieved and the chart has been reviewed. She is an excellent rehab candidate, but has not been evaluated by PT yet. Rehab will follow her and see how she does with PT. Kaitlin Andrade RN Clinical Liaison, Rehab
--- NOTE | 2018-11-13 17:27 | NUR ---
PT RESTING COMFORTABLY IN BED, DENIES ANY NEEDS AT THIS TIME. CALL LIGHT IN REACH,NAD NOTED.
--- NOTE | 2018-11-13 19:20 | NUR ---
BEDSIDE REPORT RECEIVED. NAME AND DATE PLACED ON BOARD. PT IS AAO, ON 2.5L O2 NC. CHINCHILLA NOTED WITH YELLOW URINE. LEFT AC PIV S/L. PT DENIES ANY NEEDS. NO S/S OF DISTRESS. BEDLOW AND CALL LIGHT IN REACH. WILL CPOC
--- NOTE | 2018-11-13 21:26 | NUR ---
PT COMPLAINING OF TONGUE SWELLING. NO MAJOR SWELLING NOTED. SPOKE TO DR YEBOAH REGARDING CONCERN. HE SAID HOLD ALL ANTIBIOTICS FOR NOW.
--- NOTE | 2018-11-13 21:36 | NUR ---
NO FURTHER SWELLING SINCE LAST CHECK. SPOKE WITH PT REGARDING POC. PT VERBALIZED UNDERSTANDING. PT ASKING FOR SOMETHING FOR GAS AND PAIN. WENT OVER MEDICATIONS WITH PT. PT VERBALIZED THESE ARE NORMAL PILLS. NO NEW ONES, WANTS ALL NIGHT MEDS. PT HAS NO S/S OF DISTRESS. WILL CPOC
--- NOTE | 2018-11-14 02:22 | NUR ---
PT ASLEEP. RESP EVEN AND UNLABORED. 2.5L O2 NC. PT WILL CALL FOR ASSIST WHEN NEEDED. BEDLOW AND CALL LIGHT IN REACH. WILL CPOC
[2018-11-14 04:00] VITALS: BP 147/78
--- NOTE | 2018-11-14 04:51 | NUR ---
NORCO GIVEN FOR PAIN. PT HAS NO S/S OF DISTRESS. DENIES ANY OTHER NEEDS. WILL CPOC
--- NOTE | 2018-11-14 06:34 | NUR ---
SPOKE WITH DR YEBOAH REGARDING CONSTIPATION. HE ORDERED MAG CITRATE.
[2018-11-14 07:21] LABS: BASOPHILS 0.1 % (0-2); HEMATOCRIT 38.6 % (36.0-48.0); HEMOGLOBIN 12.2 g/dL (12-16); LYMPHOCYTES 16.2 % (15-50); MCH 29.2 pg (26.0-34.0); MCHC 31.6 g/dL (31.0-37.0); MCV 92.3 fL (80.0-100.0); MEAN PLATELET VOLUME 10.8 fL (7.4-10.4); MONOCYTES 13.2 % (2-11); NEUTROPHILS 68.5 % (40-80); PLATELET COUNT 214 10x3/uL (130-400); RBC 4.18 10x6/uL (4.00-5.40); RDW 15.2 % (11.5-14.5); WBC 7.6 10x3/uL (4.8-10.8)
[2018-11-14 07:31] LABS: CARBON DIOXIDE 27.7 mmol/L (21.0-32.0); CREATININE - SERUM 1.4 mg/dL (0.6-1.3)
[2018-11-14 07:35] LABS: POTASSIUM - SERUM 3.7 mmol/L (3.5-5.1)
--- NOTE | 2018-11-14 10:41 | NUR ---
Rehab Note- Visited with the patient, the patient wants to go home with home health at this time- her is her primary caregiver. Will follow in case she changes her mind about inpatient acute rehab. Thank you for this referral! Lalita Smith RN Clinical Liaison, [facility] Rehab
--- NOTE | 2018-11-14 11:12 | NUR ---
PATHOLOGY LABORATORY TECHNOLOGIST SHOWING SR 71 PER TECH.
--- NOTE | 2018-11-14 11:53 | MORECARE ---
CASE MANAGEMENT DISCHARGE SUMMARY PATIENT: SHARIF GRANT ANN UNIT: [id number] ADM DATE: 11/11/18 AGE: 73 : 45 SEX: F ROOM/BED: D.1201 AUTHOR: DESI TEIXEIRA PHYSICIAN: REFERRING PHYSICIAN: STAR YEBOAH MD DATE OF SERVICE: 11/14/18 Discharge Plan Patient Name: SHARIF GRANT [facility] [facility] 1945 Planned Disposition: Home Hlth Svc w Plan Readm Anticipated Discharge Date: Discharge Date: Expected LOS: Initial Reviewer: [email or web address] Initial Review Date: 11/14/2018 Generated: 11/14/18 12:53 pm Patient Name: SHARIF GRANT Page [id number] at 1153 All edits/amendments must be made on the electronic document DICTATION DATE: 11/14/18 1153 NIB ASSEMBLER: SALLIE 11/14/18 1153 RPT#: [id number] DC DATE: STATUS: ADM IN [facility] [address] [place] [address] END OF REPORT
--- NOTE | 2018-11-14 12:02 | MORECARE ---
CASE MANAGEMENT DISCHARGE SUMMARY PATIENT: SHARIF GRANT UNIT: [id number] ADM DATE: 11/11/18 AGE: 73 : 45 SEX: F ROOM/BED: D.1201 AUTHOR: [email or web address] PHYSICIAN: REFERRING PHYSICIAN: STAR YEBOAH MD DATE OF SERVICE: 11/14/18 Discharge Plan Patient Name: SHARIF GRANT Facility: [facility]:[place] : 1945 Planned Disposition: Home Hlth Svc w Plan Readm Anticipated Discharge Date: Discharge Date: Expected LOS: Initial Reviewer: [email or web address] Initial Review Date: 11/14/2018 Generated: 11/14/18 1:01 pm Comments DCP- Discharge Planning Updated by [email or web address]: Stacy Elmore on 11/14/18 11:[address] Patient Name: SHARIF GRANT Admission Status: ER Accout number: [id number] Admission Date: 11-11-2018 : 1945 Admission Diagnosis: Attending: STAR YEBOAH Current LOS: 3 Anticipated DC Date: Planned Disposition: Home Hlth Svc w Plan Readm Primary Insurance: MEDICARE A & B Discharge Planning Comments: CM MET WITH PATIENT AND FAMILY ABOUT DC PLANNING/NEEDS. PATIENT PLANS TO DC TO HOME AND RESUME HH WITH [facility]. IM SIGNED AND GIVEN TO PATIENT. CM WILL FOLLOW AND ASSIST NEEDED WITH DC PLANNING/NEEDS. Subway Train Operator: Stacy Elmore DCPIA - Discharge Planning Initial Assessment Updated by [id number]: Stacy Elmore on 11/14/18 12:00 pm * Is the patient Alert and Oriented? Yes * PCP [facility] * [facility] * Preadmission Environment Home with Family * Equipment Bedside Commode Nebulizer Oxygen Wheelchair * Other Equipment LIFT CHAIR, WALK IN TUB * List name and contact numbers for known caregivers / representatives who currently or will assist patient after discharge: BORIS, , * Community resources currently utilized Home Health * Please name any agencies selected above. [facility] * Additional services required to return to the preadmission environment? No * Can the patient safely return to the preadmission environment? Yes * Has this patient been hospitalized within the prior 30 days at any hospital? No Last DP export: 11/14/18 10:53 a Patient Name: SHARIF GRANT Page [id number] at 1202 All edits/amendments must be made on the electronic document DICTATION DATE: 11/14/181200 ENTERTAINMENT USHER: SALLIE 11/14/181200 RPT#: [id number] DC DATE: STATUS: ADM IN [facility] [address] [place] [address] END OF REPORT
--- NOTE | 2018-11-14 19:21 | NUR ---
PT RESTING IN BED, GLASSES ON, CHINCHILLA NOTED WITH YELLOW URINE, SCD'S ON BILATERAL LOWER EXTREM. PT IS AAO, STATES SHE STILL HAS NOT HAD A BM, ABDOMEN DISTENDED, FIRM. LEFT AC IV S/L. PT HAS NO S/S OF DISTRESS. BEDLOW AND CALL LIGHT IN REACH. NAME AND DATE [facility] BOARD. [facility]
--- NOTE | 2018-11-14 20:45 | NUR ---
PT RESTING IN BED. NIGHT MEDS GIVEN. NORCO GIVEN FOR PAIN. PT DENIES ANY OTHER NEEDS. NO S/S OF DISTRESS. WILL [facility]C
--- NOTE | 2018-11-14 20:45 | NUR ---
PT PLACED ON BED BUSTILLOS. NO BM ONLY GAS, PULLED PT UP IN BED PT ASSISTED WITH REPOSITIONING. SCD'S ON BILATERAL LOWER EXTREM. BEDLOW AND CALL LIGHT INREACH. WILL CPOC
[2018-11-14 23:49] VITALS: BP 129/78
[2018-11-15 04:10] VITALS: BP 133/69
--- NOTE | 2018-11-15 07:22 | NUR ---
ROUNDING DONE WITH PATIENT RESTING, EYES CLOSED. GLASSES ON. BILATEAL SCD ON AND IN USE. CHINCHILLA CATH PATENT WITH CLEAR YELLOW URINE. ON 4L PER NC. WILL MONITOR SALINE LOCK PIV SEEN TO LEFT AC.
[2018-11-15 08:26] LABS: BASOPHILS 0.1 % (0-2); EOSINOPHILS 3.2 % (0-7); HEMATOCRIT 39.8 % (36.0-48.0); HEMOGLOBIN 12.6 g/dL (12-16); IMMATURE GRANULOCYTES 0.2 % (0-5); LYMPHOCYTES 28.7 % (15-50); MCH 29.5 pg (26.0-34.0); MCHC 31.7 g/dL (31.0-37.0); MCV 93.2 fL (80.0-100.0); MEAN PLATELET VOLUME 10.8 fL (7.4-10.4); MONOCYTES 13.4 % (2-11); NEUTROPHILS 54.4 % (40-80); PLATELET COUNT 218 10x3/uL (130-400); RBC 4.27 10x6/uL (4.00-5.40); RDW 15.5 % (11.5-14.5); WBC 8.1 10x3/uL (4.8-10.8)
[2018-11-15 08:28] VITALS: BP 101/58
[2018-11-15 08:39] LABS: ANION GAP 15.4 mmol/L (8-16); CALCIUM 8.3 mg/dL (8.5-10.1); CARBON DIOXIDE 27.6 mmol/L (21.0-32.0); CREATININE - SERUM 1.6 mg/dL (0.6-1.3)
[2018-11-15] MEDS ORDERED: K-DUR20 MEQ PO (08:45)
--- NOTE | 2018-11-15 10:03 | MORECARE ---
CASE MANAGEMENT DISCHARGE SUMMARY PATIENT: SHARIF GRANT ANN UNIT: [id number] ADM DATE: 11/11/18 AGE: 73 : 45 SEX: F ROOM/BED: D.1201 AUTHOR: DESI TEIXEIRA PHYSICIAN: REFERRING PHYSICIAN: STAR YEBOAH MD DATE OF SERVICE: 11/15/18 Discharge Plan Patient Name: SHARIF GRANT Facility: [facility]:[place] : 1945 Planned Disposition: Home Hlth Svc w Plan Readm Anticipated Discharge Date: Discharge Date: Expected LOS: Initial Reviewer: [email or web address] Initial Review Date: 11/14/2018 Generated: 11/15/18 11:03 am Comments DCP- Discharge Planning Updated by [email or web address]: Stacy Elmore on 11/15/18 9:[address] Patient Name: SHARIF GRANT Admission Status: ER Accout number: [id number] Admission Date: 11-11-2018 : 1945 Admission Diagnosis: Attending: STAR YEBOAH Current LOS: 4 Anticipated DC Date: Planned Disposition: Home Hlth Svc w Plan Readm Primary Insurance: MEDICARE A & B Discharge Planning Comments: CM SPOKE WITH YANIV WITH [facility] AND GAVE HER DOCUMENTS ON PATIENT . STATES PATIENT WILL BE RESUMPTION OF CARE AND THEY WILL PUT HER ON TO SEE THIS WEEKEND. CM TO FOLLOW AND ASSIST NEEDED WITH DC PLANNING/NEEDS. Farmworker Vegetable: Stacy Elmore DCP- Discharge Planning Updated by [id number]: Stacy Elmore on 11/14/18 11:[address] Patient Name: SHARIF GRANT Admission Status: ER Accout number: [id number] Admission Date: 11-11-2018 : 1945 Admission Diagnosis: Attending: STAR YEBOAH Current LOS: 3 Anticipated DC Date: Planned Disposition: Home Hlth Svc w Plan Readm Primary Insurance: MEDICARE A & B Discharge Planning Comments: CM MET WITH PATIENT AND FAMILY ABOUT DC PLANNING/NEEDS. PATIENT PLANS TO DC TO HOME AND RESUME HH WITH [facility]. IM SIGNED AND GIVEN TO PATIENT. CM WILL FOLLOW AND ASSIST NEEDED WITH DC PLANNING/NEEDS. Farmworker Vegetable: Stacy Elmore DCPIA - Discharge Planning Initial Assessment Updated by [id number]: Stacy Elmore on 11/14/18 12:00 pm * Is the patient Alert and Oriented? Yes * PCP [facility] * [facility] * Preadmission Environment Home with Family * Equipment Bedside Commode Nebulizer Oxygen Wheelchair * Other Equipment LIFT CHAIR, WALK IN TUB * List name and contact numbers for known caregivers / representatives who currently or will assist patient after discharge: BORIS, , * Community resources currently utilized Home Health * Please name any agencies selected above. [facility] * Additional services required to return to the preadmission environment? No * Can the patient safely return to the preadmission environment? Yes * Has this patient been hospitalized within the prior 30 days at any hospital? No Coverage Notice Reviewer: [id number] - Stacy Elmore Notice Issued Date-Time: 11/14/2018 12:01 Notice Type: IM Discharge Notice Notice Delivered To: Family Member Relationship to Patient: Spouse Airport Operations Supervisor Name: BORIS Delivery Method: HAND - Hand Delivered Magda Days: Prior Verbal Notification: Recipient Understood Notice: Yes Recipient Signature: Yes Med Rec Note Co-signed by Attending: Coverage Notice Comment: Last DP export: 11/14/18 11:02 a Patient Name: SHARIF GRANT Page [phone] at 1003 All edits/amendments must be made on the electronic document DICTATION DATE: 11/15/18 1002 CLINICAL STAFF EDUCATOR: SALLIE 11/15/18 1002 RPT#: [id number] DC DATE: STATUS: ADM IN [facility] [address] [place] [address] END OF REPORT
--- NOTE | 2018-11-15 11:18 | NUR ---
The patient requests that her smart cath be removed at this time.
[2018-11-15 11:59] VITALS: BP 108/69
--- NOTE | 2018-11-15 13:00 | NUR ---
The patient has been d/c'd by the MD to go home, did go over d/c plan with the patient and her spouse. Did let them know about the continuation of care, meds escribed to [facility]. They signed the d/c paperwork and verbalize understanding. The spouse has gone to get the patient's oxygen tank and then we will d/c the IV site as the patient is still eating.
--- NOTE | 2018-11-15 13:16 | NUR ---
The patient requests something for gas, did provide [place], see MAR.
--- NOTE | 2018-11-15 13:50 | NUR ---
The patient's IV cath is d/c'd it is intact, 2x2 applied with tape.
--- NOTE | 2018-11-15 14:02 | NUR ---
The patient is taken to her vehicle by the SENIOR SYSTEMS SOFTWARE ENGINEER in a w/c, her telemetry is off, she is now d/c'd off of the floor.
--- NOTE | 2018-11-15 14:50 | MORECARE ---
CASE MANAGEMENT DISCHARGE SUMMARY PATIENT: SHARIF GRANT ANN UNIT: [id number] ADM DATE: 11/11/18 AGE: 73 : 45 SEX: F ROOM/BED: D.1201 AUTHOR: DESI TEIXEIRA PHYSICIAN: REFERRING PHYSICIAN: STAR YEBOAH MD DATE OF SERVICE: 11/15/18 Discharge Plan Patient Name: SHARIF GRANT Facility[facility]:[place] : 1945 Planned Disposition: Home Hlth Svc w Plan Readm Anticipated Discharge Date: 11/15/18 Discharge Date: 11/15/2018 Expected LOS: 4 Initial Reviewer: [email or web address] Initial Review Date: 11/14/2018 Generated: 11/15/18 3:50 pm Comments DCP- Discharge Planning Updated by [email or web address]: Stacy Elmore on 11/15/18 9:[address] Patient Name: SHARIF GRANT Admission Status: ER Accout number: [id number] Admission Date: 11-11-2018 : 1945 Admission Diagnosis: Attending: STAR YEBOAH Current LOS: 4 Anticipated DC Date: Planned Disposition: Home Hlth Svc w Plan Readm Primary Insurance: MEDICARE A & B Discharge Planning Comments: CM SPOKE WITH YANIV WITH [facility] AND GAVE HER DOCUMENTS ON PATIENT . STATES PATIENT WILL BE RESUMPTION OF CARE AND THEY WILL PUT HER ON TO SEE THIS WEEKEND. CM TO FOLLOW AND ASSIST NEEDED WITH DC PLANNING/NEEDS. 2Nd Pressman: Stacy Elmore DCP- Discharge Planning Updated by [id number]: Stacy Elmore on 11/14/18 11:[address] Patient Name: SHARIF GRANT Admission Status: ER Accout number: [id number] Admission Date: 11-11-2018 : 1945 Admission Diagnosis: Attending: STAR YEBOAH Current LOS: 3 Anticipated DC Date: Planned Disposition: Home Hlth Svc w Plan Readm Primary Insurance: MEDICARE A & B Discharge Planning Comments: CM MET WITH PATIENT AND FAMILY ABOUT DC PLANNING/NEEDS. PATIENT PLANS TO DC TO HOME AND RESUME HH WITH [facility]. IM SIGNED AND GIVEN TO PATIENT. CM WILL FOLLOW AND ASSIST NEEDED WITH DC PLANNING/NEEDS. 2Nd Pressman: Stacy Elmore DCPIA - Discharge Planning Initial Assessment Updated by [id number]: Stacy Elmore on 11/14/18 12:00 pm * Is the patient Alert and Oriented? Yes * PCP WILKINSON * Pharmacy [facility] * Preadmission Environment Home with Family * Equipment Bedside Commode Nebulizer Oxygen Wheelchair * Other Equipment LIFT CHAIR, WALK IN TUB * List name and contact numbers for known caregivers / representatives who currently or will assist patient after discharge: BORIS, , * Community resources currently utilized Home Health * Please name any agencies selected above. [facility] * Additional services required to return to the preadmission environment? No * Can the patient safely return to the preadmission environment? Yes * Has this patient been hospitalized within the prior 30 days at any hospital? No Coverage Notice Reviewer: [id number] - Stacy Elmore Notice Issued Date-Time: 11/14/2018 12:01 Notice Type: IM Discharge Notice Notice Delivered To: Family Member Relationship to Patient: Spouse Analyst Microbiology Lab Name: BORIS Delivery Method: HAND - Hand Delivered Magda Days: Prior Verbal Notification: Recipient Understood Notice: Yes Recipient Signature: Yes Med Rec Note Co-signed by Attending: Coverage Notice Comment: Last DP export: 11/15/18 9:03 a Patient Name: SHARIF GRANT Page [phone] at 1450 All edits/amendments must be made on the electronic document DICTATION DATE: 11/15/18 1450 MARKET SALES MANAGER: SALLIE 11/15/18 1450 RPT#: [id number] DC DATE:11/15/18 STATUS: DIS IN [facility] [address] [place] [address] END OF REPORT
== END 2018-11-15 14:08 | disposition home health service (06) | DRG 689 ==
LOC: D.ER 11:16 → D.M3 14:36
PROVIDERS: Family Medicine; ADMIT Internal Medicine Nephrology
DX: N39.0 Urinary tract infection, site not specified (principal); J18.9 Pneumonia, unspecified organism; I69.354 Hemiplegia and hemiparesis following cerebral infarction affecting left non-dominant side; I50.22 Chronic systolic (congestive) heart failure; J98.11 Atelectasis; I13.0 Hypertensive heart and chronic kidney disease with heart failure and stage 1 through stage 4 chronic kidney disease, or unspecified chronic kidney disease; J44.9 Chronic obstructive pulmonary disease, unspecified; K21.9 Gastro-esophageal reflux disease without esophagitis; Z86.718 Personal history of other venous thrombosis and embolism; Z86.711 Personal history of pulmonary embolism; I25.10 Atherosclerotic heart disease of native coronary artery without angina pectoris; E03.9 Hypothyroidism, unspecified; E78.5 Hyperlipidemia, unspecified; G70.00 Myasthenia gravis without (acute) exacerbation; E87.6 Hypokalemia; N18.9 Chronic kidney disease, unspecified

== ENCOUNTER 2019-02-06 19:00 | Outpatient (CLI) | payer MEDICARE, OTHER ==
[2018-11-12 09:44] VITALS: BMI 35.8
[~2019-02-06 19:00] MED LIST changes: +CARAFATE1 G PO; +COZAAR25 MG PO
== END 2019-02-06 23:59 | disposition home or self-care (01) ==
LOC: D.MAMMO 19:00
PROVIDERS: ATTEND Emergency Medicine
DX: Z12.31 Encounter for screening mammogram for malignant neoplasm of breast (principal)

== ENCOUNTER 2019-08-31 19:39 | Inpatient (IN) | payer MEDICARE, OTHER ==
[~2019-08-31] VITALS: Ht 168.9 cm; Wt 98.4 kg
--- NOTE | 2019-08-31 20:00 | NUR ---
PT LEFT ED VIA STRETCHER FOR CT
[2019-08-31 20:26] LABS: BASOPHILS 0.1 % (0-2); EOSINOPHILS 1.3 % (0-7); HEMATOCRIT 41.8 % (36.0-48.0); HEMOGLOBIN 12.7 g/dL (12-16); IMMATURE GRANULOCYTES 0.2 % (0-5); LYMPHOCYTES 16.3 % (15-50); MCH 30.3 pg (26.0-34.0); MCHC 30.4 g/dL (31.0-37.0); MCV 99.8 fL (80.0-100.0); MEAN PLATELET VOLUME 10.6 fL (7.4-10.4); MONOCYTES 9.8 % (2-11); NEUTROPHILS 72.3 % (40-80); RBC 4.19 10x6/uL (4.00-5.40); RDW 14.9 % (11.5-14.5); WBC 10.2 10x3/uL (4.8-10.8)
[2019-08-31 20:28] LABS: PLATELET COUNT 170 10x3/uL (130-400)
[2019-08-31 20:32] LABS: INR 1.17 (0.85-1.17); PROTIME 14.4 SECONDS (11.6-15.0)
[2019-08-31 20:36] LABS: CALC OSMOLALITY 291 mosm/kg (275-300); CALCIUM 8.3 mg/dL (8.5-10.1); CARBON DIOXIDE 34.7 mmol/L (21.0-32.0); CHLORIDE - SERUM 108 mmol/L (98-107); CREATININE - SERUM 1.2 mg/dL (0.6-1.3); GLUCOSE 136 mg/dL (74-106); POTASSIUM - SERUM 3.7 mmol/L (3.5-5.1); SODIUM 144 mmol/L (136-145); UREA NITROGEN 21 mg/dL (7-18); eGFR NON AFRICAN AMERICAN 46 mL/min (90-120)
--- NOTE | 2019-08-31 21:03 | NUR ---
URINE SPECIMEN SENT TO LAB
[2019-08-31 21:07] LABS: ALBUMIN 3.1 g/dL (3.4-5.0); ALKALINE PHOSPHATASE 111 U/L (46-116); ALT (SGPT) 21 U/L (10-68); CKMB 0.2 U/L (0.0-3.6); CREATINE KINASE 40 UL (21-215); MAGNESIUM - SERUM 2.2 mg/dL (1.8-2.4); PROTEIN - SERUM 7.2 g/dL (6.4-8.2); THYROID STIMULATING HORMONE 1.93 uIU/mL (0.36-3.74)
[2019-08-31 21:10] LABS: TROPONIN-I < 0.017 ng/mL (0.000-0.060)
[2019-08-31 21:13] LABS: APPEARANCE HAZY (CLEAR); COLOR YELLOW (YELLOW)
[2019-08-31 21:14] LABS: BACTERIA MANY /hpf (NEGATIVE); BILIRUBIN NEGATIVE (NEGATIVE); EPITHELIAL CELLS 0-5 /hpf (0-5); GLUCOSE NEGATIVE (NEGATIVE); KETONE NEGATIVE (NEGATIVE); NITRITE POSITIVE (NEGATIVE); PROTEIN NEGATIVE (NEGATIVE); RED CELLS - URINE 0-5 /hpf (0-5); UROBILINOGEN NORMAL (NORMAL)
[2019-08-31 21:28] VITALS: BP 123/63
--- NOTE | 2019-08-31 22:02 | NUR ---
PLAN OF CARE DISCUSSED WITH PT AND SPOUSE. PT SLEEPING ON BED. O2 VIA NC IN PLACE.
--- NOTE | 2019-08-31 22:17 | NUR ---
LAB AT BEDSIDE FOR BLOOD CULTURES.
--- NOTE | 2019-08-31 22:58 | NUR ---
PT ARRIVED VIA STRETCHER FORM ER. FAMILY AT BEDSIDE.
[2019-08-31 23:32] VITALS: BP 153/64; BMI 34.4
[2019-09-01] MEDS ORDERED: MUCINEX600 MG PO (00:05)
[2019-09-01] MEDS ORDERED: TRAZODONE HCL150 MG PO (00:11)
[2019-09-01] MEDS ORDERED: CARAFATE1 G PO (00:12)
[2019-09-01] MEDS ORDERED: CIPRO250 MG PO (00:12)
[2019-09-01] MEDS ORDERED: BIOFREEZE118 ML TOPICAL (00:13)
--- NOTE | 2019-09-01 00:17 | NUR ---
ADMISSION ASSESSMENT, HISTORY AND HOME MED LIST COMPLETED. PT ALERT, ANSWERED QUESTIONS APPROPRIATELY. IV TO LFA WITH IVAB INFUSING. O2 3LNC. LUNGS WITH SCATTERED RHONCHI BILAT. NON-PRODUCTIVE COUGH. SLIGHT L SIDED WEAKNESS. ESCOBEDO. PALPABLE PERIPHERAL PULSES. VSS. GAVE PT HER PM SAM BLANCAS AND ERNIE AT 0005 HRS. THEN STATED THAT WE SHOULD THANK HIM FOR THAT IT WOULD SAVE THE STAFF SOME TROUBLE. PT CURRENTLY WATCHING TV. SR UPX2, CALL LIGHT WITHIN REACH AND BED ALARM ON.
--- NOTE | 2019-09-01 00:50 | NUR ---
PT AWAKE; DENIES ANY DISCOMFORT. SR UP X2, CALL LIGHT WITHIN REACH AND BED ALARM ON.
[2019-09-01 02:06] LABS: UDS - AMPHET NEGATIVE QUAL (NEGATIVE); UDS - BARB NEGATIVE QUAL (NEGATIVE); UDS - BENZO NEGATIVE QUAL (NEGATIVE); UDS - COCAINE NEGATIVE QUAL (NEGATIVE); UDS - OPIATE POSITIVE QUAL (NEGATIVE); UDS - PCP POSITIVE QUAL (NEGATIVE); UDS - THC NEGATIVE QUAL (NEGATIVE)
--- NOTE | 2019-09-01 02:29 | NUR ---
PT RESTING WITH EYES CLOSED. RESP EVEN AND REGULAR. SR UP X2, CALL LIGHT WITHIN REACH AND BED ALARM ON.
--- NOTE | 2019-09-01 04:20 | NUR ---
PT AWAKE; DENIES ANY DISCOMFORT. SR UP X2, CALL LIGHT WITHIN REACH AND BED ALARM ON.
[2019-09-01 04:26] VITALS: BP 123/71
--- NOTE | 2019-09-01 06:09 | NUR ---
VSSS THROUGHOUT NIGHT. PT DENIED ANY DISCOMFORT. PT CLEAN AND DRY AT THIS TIME. NEEDS MET; WILL CONTINUE TO MONITOR.
--- NOTE | 2019-09-01 07:00 | NUR ---
PT LYING IN BED WITH HOB ELEVATED. RESTING QUIETLY. O2 AT 3L VIA NC. LEFT FA 20G IV SL. PT STATES SHE HAS NO FURTHER NEEDS AT THIS TIME. BED LOW. CL IN REACH. WILL CONTINUE TO MONITOR.
--- NOTE | 2019-09-01 10:23 | NUR ---
SCD'S PLACED BILATERALLY ON PT'S LEGS.
[2019-09-01 10:42] VITALS: BP 140/81
--- NOTE | 2019-09-01 11:08 | NUR ---
I have reviewed this patient and I concur with the Shift Assessment completed by the Licensed Practical Nurse today this shift.
[2019-09-01 12:10] VITALS: Ht 168.9 cm; Wt 98.4 kg
[2019-09-01 13:34] VITALS: BP 125/83
--- NOTE | 2019-09-01 15:07 | NUR ---
PT AND PT'S WANTING PAIN MEDICATIONS SPECIFICALLY BUT ALL OF HOME MEDS RESTARTED. I STATED TO THEM IF PT HAD CONFUSION WHEN SHE CAME IN THAT'S WHY THEY MAY HAVE HELD PAIN MEDICATIONS BUT TO SPEAK WITH MD WHEN HE ROUNDS. NOÉ HERZOG NURSE RECAPPER SPOKE WITH PT AND PT'S SPOUSE AND STATED THEM THE SAME THING I DID. THEY VERBALIZED UNDERSTANDING.
--- NOTE | 2019-09-01 15:08 | NUR ---
SPOKE WITH LEIGHA REYNOSO AND ASKED HER SPEAK WITH PT AND HER ABOUT HOME MEDS AND GET THEM RESTARTED. SHE STATES IT WAS BECAUSE PT WAS CONFUSED WHEN SHE CAME IN. I STATED TO HER I KNOW THAT IS WHAT I TOLD THEM BUT THEY WILL HAVE TO TALK TO THE DOCTOR WHEN HE ROUNDS. SHE STATES "LET DR. YEBOAH TAKE CARE OF IT WHEN HE ROUNDS."
--- NOTE | 2019-09-01 17:36 | NUR ---
16 YAKUT CHINCHILLA CATHETER PLACED ON SECOND ATTEMPT.
[2019-09-01 18:36] VITALS: BP 161/70
[2019-09-01 20:35] VITALS: BP 181/88
[2019-09-02 00:30] VITALS: BP 163/61
--- NOTE | 2019-09-02 01:10 | NUR ---
RESTING WITH EYES CLOSED, RESPERATIONS EVEN, NO S/S DISTRESS NOTED.
[2019-09-02 04:30] VITALS: BP 173/80
--- NOTE | 2019-09-02 07:13 | NUR ---
CLEANED PT UP FROM INCONT EPISODE. PT A/O X4, RESP EVEN AND NONLABORED ON 3L NC. LT FA IV SL. PT DENIES ANY OTHER NEEDS AT THIS TIME. CALL LIGHT IN REACH, BEDSIDE RAILS X2, NAD NOTED, WILL CONTINUE TO MONITOR.
[2019-09-02 09:24] VITALS: BP 167/91
--- NOTE | 2019-09-02 11:43 | NUR ---
CLEANED PT UP FROM INCONT EPISODE, PT DENIES ANY OTHER NEEDS AT THIS TIME. SPOUSE AT BEDSIDE, NAD NOTED, WILL CONTINUE TO MONITOR.
[2019-09-02 13:56] VITALS: BP 147/60
--- NOTE | 2019-09-02 15:43 | NUR ---
NORCO GIVEN FOR PAIN LEVEL OF 10/10. PT DENIES ANY OTHER NEEDS AT THIS TIME. CALL LIGHT IN REACH, SPOUSE AT BEDSIDE, NAD NOTED,W ILL CONTINUE OT MONITOOR.
[2019-09-02 17:02] VITALS: BP 160/79
[2019-09-02 20:33] VITALS: BP 126/78
--- NOTE | 2019-09-02 20:45 | NUR ---
EVENING ROUND COMPLETED. VSS, AA0X3 NO S/S OF RESP DISTRESS. ALTHOUGH PT C/O PAIN. NORCO PRN GIVEN. CARPET RENOVATOR GIVEN BED BATH AT THIS TIME. PT DENIES ANY FURTHER NEEDS. WILL CPOC. CL WITHIN REACH.
[2019-09-03 00:57] VITALS: BP 162/92
[2019-09-03 04:28] VITALS: BP 159/91
[2019-09-03 08:00] VITALS: BP 149/71
[2019-09-03 12:24] VITALS: BP 150/70
[2019-09-03] MEDS ORDERED: MACROBID100 MG PO (12:33)
--- NOTE | 2019-09-03 13:39 | MORECARE ---
CASE MANAGEMENT DISCHARGE SUMMARY PATIENT: SHARIF GRANT ANN UNIT: [id number] ADM DATE: 08/31/19 AGE: 74 : 45 SEX: F ROOM/BED: D.8746 AUTHOR: DESI TEIXEIRA PHYSICIAN: REFERRING PHYSICIAN: STAR YEBOAH MD DATE OF SERVICE: 09/03/19 Discharge Plan Patient Name: SHARIF GRANT [facility] [facility] 1945 Planned Disposition: Home with Home Health Anticipated Discharge Date: 09/03/19 Discharge Date: Expected LOS: 3 Initial Reviewer: [email or web address] Initial Review Date: 09/03/2019 Generated: 09/03/19 2:39 pm External Providers External Provider: [facility] [place] Next Contact Date: 09/03/2019 Service Request Date: Service Type: Resolution: Reviewer: Comments: Patient Name: SHARIF GRANT Page [phone] at 1339 All edits/amendments must be made on the electronic document DICTATION DATE: 09/03/19 133 HIGH LIGHTER: SALLIE 09/03/19 1339 RPT#: [id number] SC DATE: STATUS: ADM IN [facility] [address] [place] [address] END OF REPORT
--- NOTE | 2019-09-03 13:59 | MORECARE ---
CASE MANAGEMENT DISCHARGE SUMMARY PATIENT: SHARIF GRANT ANN UNIT: [id number] ADM DATE: 08/31/19 AGE: 74 : 45 SEX: F ROOM/BED: D.6055 AUTHOR: LLUVIA,DOC PHYSICIAN: REFERRING PHYSICIAN: STAR YEBOAH MD DATE OF SERVICE: 09/03/19 Discharge Plan Patient Name: SHARIF GRANT Facility: [facility]:[place] : 1945 Planned Disposition: Home with Home Health Anticipated Discharge Date: 09/03/19 Discharge Date: Expected LOS: 3 Initial Reviewer: [email or web address] Initial Review Date: 09/03/2019 Generated: 09/03/19 2:58 pm Comments DCP- Discharge Planning Updated by [id number]: Jose Cruz on 09/03/19 12:[address] Patient Name: SHARIF GRANT Admission Status: ER Accout number: [id number] Admission Date: 08-31-2019 : 1945 Admission Diagnosis: Attending: STAR YEBOAH Current LOS: 3 Anticipated DC Date: 09-03-2019 Planned Disposition: Home with Home Health Primary Insurance: MEDICARE A & B PLANNED EXTERNAL PROVIDER: [facility] Discharge Planning Comments: CM MET WITH PT AND SPOUSE IN ROOM TO DISCUSS DISCHARGE NEEDS AND PLANNING. SHARIF GRANT provided verbal consent to discuss current and ongoing needs with/in the presence of: SPOUSE, BORIS. CM DISCUSSED AVAILABILITY OF HOME HEALTH, REHAB SERVICES AND MEDICAL EQUIPMENT. PT WANTS HOME HEALTH BUT NOT WITH [facility]. CHOICE LISTING PROVIDED. PT CHOICE SIGNED FOR [facility], PT AND SPOUSE DO NOT WANT MORNING VISITS AND NO VISITS ON SUNDAY. SPOUSE TO TRANSPORT HOME AT DISCHARGE. IMPORTANT MESSAGE FROM MEDICARE PROVIDED AND EXPLAINED. CM CALLED [facility], , SPOKE TO GAY AND PROVIDED REFERRAL INFORMATION, FAXED REFERRAL TO [facility] AT [phone]. GAY STATES HE THINKS THEY WILL BE ABLE TO ACCOMODATE PT'S PREFERENCES ON DAYS AND HOURS FOR SERVICES. FIBERLINE SUPERVISOR NURSE AND PT NOTIFIED. PT DENIES FURTHER DISCHARGE NEEDS. Load Builder: Jose Cruz DCPIA - Discharge Planning Initial Assessment Updated by [id number]: Jose Cruz on 09/03/19 1:52 pm * Is the patient Alert and Oriented? Yes * How many steps to enter\exit or inside your home? NONE * PCP DR. ANDRES WILKINSON * Pharmacy [facility] * Preadmission Environment Home with Family * ADLs Partial Dependent * Partial ADLs (Assistance needed) Ambulation Bathing Dressing Medication Management Toileting Transfers * Equipment Bedside Commode Nebulizer Other Oxygen Wheelchair * Other Equipment LIFT CHAIR AND WALK IN TUB * List name and contact numbers for known caregivers / representatives who currently or will assist patient after discharge: BORIS GRANT, SPOUSE, * Verbal permission to speak to the caregivers and representatives has been obtained from the patient. Yes * Community resources currently utilized None * Please name any agencies selected above. NONE * Additional services required to return to the preadmission environment? No * Can the patient safely return to the preadmission environment? Yes * Has this patient been hospitalized within the prior 30 days at any hospital? No Last DP export: 09/03/19 12:39 p Patient Name: SHARIF GRANT Page [phone] at 1359 All edits/amendments must be made on the electronic document DICTATION DATE: 09/03/19 1358 QUALITY IMPROVEMENT ENGINEER: SALLIE 09/03/19 1358 RPT#: [id number] DC DATE: STATUS: ADM IN [facility] [address] [place] [address] END OF REPORT
--- NOTE | 2019-09-03 14:08 | MORECARE ---
CASE MANAGEMENT DISCHARGE SUMMARY PATIENT: SHARIF GRANT ANN UNIT: [id number] ADM DATE: 08/31/19 AGE: 74 : 45 SEX: F ROOM/BED: D.1819 AUTHOR: LLUVIA,DOC PHYSICIAN: REFERRING PHYSICIAN: STAR YEBOAH MD DATE OF SERVICE: 09/03/19 Discharge Plan Patient Name: SHARIF GRANT Facility: [facility]:[place] : 1945 Planned Disposition: Home with Home Health Anticipated Discharge Date: 09/03/19 Discharge Date: Expected LOS: 3 Initial Reviewer: [email or web address] Initial Review Date: 09/03/2019 Generated: 09/03/19 3:08 pm Comments DCP- Discharge Planning Updated by [id number]: Jose Cruz on 09/03/19 12:[address] Patient Name: SHARIF GRANT Admission Status: ER Accout number: [id number] Admission Date: 08-31-2019 : 1945 Admission Diagnosis: Attending: STAR YEBOAH Current LOS: 3 Anticipated DC Date: 09-03-2019 Planned Disposition: Home with Home Health Primary Insurance: MEDICARE A & B PLANNED EXTERNAL PROVIDER: [facility] Discharge Planning Comments: CM MET WITH PT AND SPOUSE IN ROOM TO DISCUSS DISCHARGE NEEDS AND PLANNING. SHARIF GRANT provided verbal consent to discuss current and ongoing needs with/in the presence of: SPOUSE, BORIS. CM DISCUSSED AVAILABILITY OF HOME HEALTH, REHAB SERVICES AND MEDICAL EQUIPMENT. PT WANTS HOME HEALTH BUT NOT WITH [facility]. CHOICE LISTING PROVIDED. PT CHOICE SIGNED FOR [facility], PT AND SPOUSE DO NOT WANT MORNING VISITS AND NO VISITS ON SUNDAY. SPOUSE TO TRANSPORT HOME AT DISCHARGE. IMPORTANT MESSAGE FROM MEDICARE PROVIDED AND EXPLAINED. CM CALLED [facility], , SPOKE TO GAY AND PROVIDED REFERRAL INFORMATION, FAXED REFERRAL TO [facility] AT [phone]. GAY STATES HE THINKS THEY WILL BE ABLE TO ACCOMODATE PT'S PREFERENCES ON DAYS AND HOURS FOR SERVICES. SALON COORDINATOR NURSE AND PT NOTIFIED. PT DENIES FURTHER DISCHARGE NEEDS. Benefits Consulting Analyst: Jose Cruz DCPIA - Discharge Planning Initial Assessment Updated by [id number]: Jose Cruz on 09/03/19 2:05 pm * Is the patient Alert and Oriented? Yes * How many steps to enter\exit or inside your home? NONE * PCP DR. ANDRES WILKINSON * Pharmacy [facility] * Preadmission Environment Home with Family * ADLs Partial Dependent * Partial ADLs (Assistance needed) Ambulation Bathing Dressing Medication Management Toileting Transfers * Equipment Bedside Commode Nebulizer Other Oxygen Wheelchair * Other Equipment LIFT CHAIR AND WALK IN TUB PROVIDER [facility] PATIENT * List name and contact numbers for known caregivers / representatives who currently or will assist patient after discharge: BORIS GRANT, SPOUSE, * Verbal permission to speak to the caregivers and representatives has been obtained from the patient. Yes * Community resources currently utilized None * Please name any agencies selected above. NONE * Additional services required to return to the preadmission environment? No * Can the patient safely return to the preadmission environment? Yes * Has this patient been hospitalized within the prior 30 days at any hospital? No Coverage Notice Reviewer: [id number] Jaylen Cruz Notice Issued Date-Time: 09/03/2019 13:00 Notice Type: IM Discharge Notice Notice Delivered To: Family Member Relationship to Patient: Spouse Adjusto Writer Operator Name: BORIS GRANT Delivery Method: HAND - Hand Delivered Magda Days: Prior Verbal Notification: Recipient Understood Notice: Yes Recipient Signature: Yes Med Rec Note Co-signed by Attending: Coverage Notice Comment: Reviewer: [id number] Cruz Notice Issued Date-Time: 09/03/2019 13:00 Notice Type: Patient Choice Letter Notice Delivered To: Family Member Relationship to Patient: Spouse Adjusto Writer Operator Name: BORIS GRANT Delivery Method: HAND - Hand Delivered Magda Days: Prior Verbal Notification: Recipient Understood Notice: Yes Recipient Signature: Yes Med Rec Note Co-signed by Attending: Coverage Notice Comment: [facility] Last DP export: 09/03/19 12:59 p Patient Name: SHARIF GRANT Page [phone] at 1408 All edits/amendments must be made on the electronic document DICTATION DATE: 09/03/191407 ACTIVITIES THERAPIST: SALLIE 09/03/191407 RPT#: [id number] DC DATE: STATUS: ADM IN [facility] [address] [place] [address] END OF REPORT
--- NOTE | 2019-09-03 14:46 | NUR ---
ORDERS FOR DC RECEIVED. WRITTEN AND VERBAL INSTRUCTIONS GIVEN TO PATIENT AND . BOTH VERBALIZED UNDERSTANDNING AND PATIENTS SPOUSE SIGNED PAPERWORK.IV DCD WITHOUT DIFFICULTY WITH ENTIRE CATHETER INTACT. CHINCHILLA CATHETER DCD WITHOUT DIFFICULTY AND PATIENT TOLERATED WELL. PATIENT TO FRONT DOOR VIA AND HOPSITAL PERSONNEL. PATIENT DCD TO HOME FOR SELF CARE.
== END 2019-09-03 15:25 | disposition home health service (06) | DRG 193 ==
LOC: D.ER 19:39 → D.M2 22:14
PROVIDERS: Emergency Medicine; ADMIT Internal Medicine Nephrology; ATTEND Internal Medicine Nephrology
DX: J18.9 Pneumonia, unspecified organism (principal); G93.41 Metabolic encephalopathy; N39.0 Urinary tract infection, site not specified; N17.9 Acute kidney failure, unspecified; J98.11 Atelectasis; I69.354 Hemiplegia and hemiparesis following cerebral infarction affecting left non-dominant side; I12.9 Hypertensive chronic kidney disease with stage 1 through stage 4 chronic kidney disease, or unspecified chronic kidney disease; N18.9 Chronic kidney disease, unspecified; E78.5 Hyperlipidemia, unspecified; I25.10 Atherosclerotic heart disease of native coronary artery without angina pectoris; J44.9 Chronic obstructive pulmonary disease, unspecified; E03.9 Hypothyroidism, unspecified; G70.00 Myasthenia gravis without (acute) exacerbation; Z86.718 Personal history of other venous thrombosis and embolism

== ENCOUNTER → 2019-09-25 15:48 | Outpatient (CLI) | payer MEDICARE, OTHER ==
[2019-09-01 12:10] VITALS: BMI 34.4
[~2019-09-25 15:48] MED LIST changes: +BIOFREEZE118 ML TOPICAL; +CIPRO250 MG PO; +MACROBID100 MG PO; +TRAZODONE HCL150 MG PO
[2019-09-25 16:19] LABS: APPEARANCE CLEAR (CLEAR); BILIRUBIN NEGATIVE (NEGATIVE); COLOR STRAW (YELLOW); GLUCOSE NEGATIVE (NEGATIVE); KETONE NEGATIVE (NEGATIVE); NITRITE NEGATIVE (NEGATIVE); PROTEIN NEGATIVE (NEGATIVE); SPECIFIC GRAVITY 1.015 (1.005-1.020); UROBILINOGEN NORMAL (NORMAL)
== END | disposition home or self-care (01) ==
LOC: D.LABREF 15:48
PROVIDERS: ATTEND Emergency Medicine
DX: J44.9 Chronic obstructive pulmonary disease, unspecified (principal)

== ENCOUNTER → 2020-01-09 10:05 | Outpatient (CLI) | payer MEDICARE, OTHER ==
[2019-09-01 12:10] VITALS: BMI 34.4
[2020-01-09 14:25] LABS: BILIRUBIN NEGATIVE (NEGATIVE); GLUCOSE NEGATIVE (NEGATIVE); KETONE NEGATIVE (NEGATIVE); NITRITE NEGATIVE (NEGATIVE); SPECIFIC GRAVITY 1.015 (1.005-1.020); UROBILINOGEN NORMAL (NORMAL)
== END | disposition home or self-care (01) ==
LOC: D.LAB 10:05
PROVIDERS: ATTEND Emergency Medicine
DX: I50.22 Chronic systolic (congestive) heart failure (principal)

== ENCOUNTER → 2020-03-01 12:21 | Outpatient (CLI) | payer MEDICARE, OTHER ==
[2019-09-01 12:10] VITALS: BMI 34.4
== END | disposition home or self-care (01) ==
LOC: D.LABREF 12:21
PROVIDERS: ATTEND Internal Medicine Pulmonary Disease
DX: Z11.59 Encounter for screening for other viral diseases (principal)

== ENCOUNTER → 2020-03-02 14:19 | Outpatient (CLI) | payer MEDICARE, OTHER ==
[2019-09-01 12:10] VITALS: BMI 34.4
== END | disposition home or self-care (01) ==
LOC: D.RT 12-18 11:00 → D.RAD 12-18 11:45 → D.RT 12-18 14:30 → D.RAD 12-18 15:00 → D.RT 12-22 14:00
PROVIDERS: ATTEND Internal Medicine Pulmonary Disease
DX: J44.9 Chronic obstructive pulmonary disease, unspecified (principal)

== ENCOUNTER 2020-06-08 07:15 | Day surgery (SDC) | payer MEDICARE, OTHER ==
[2020-06-04 11:59] LABS: PROTIME 13.1 SECONDS (11.6-15.0)
[2020-06-04 12:00] LABS: APTT 30.4 SECONDS (22.8-39.4)
[2020-06-04 12:11] LABS: BASOPHILS 0.1 % (0-2); EOSINOPHILS 2.9 % (0-7); HEMATOCRIT 43.1 % (36.0-48.0); HEMOGLOBIN 13.3 g/dL (12-16); IMMATURE GRANULOCYTES 0.1 % (0-5); LYMPHOCYTES 23.7 % (15-50); MCH 30.4 pg (26.0-34.0); MCHC 30.9 g/dL (31.0-37.0); MCV 98.6 fL (80.0-100.0); MEAN PLATELET VOLUME 10.4 fL (7.4-10.4); MONOCYTES 9.7 % (2-11); NEUTROPHILS 63.5 % (40-80); PLATELET COUNT 196 10x3/uL (130-400); RBC 4.37 10x6/uL (4.00-5.40); RDW 15.1 % (11.5-14.5); WBC 6.8 10x3/uL (4.8-10.8)
[~2020-06-08] VITALS: Ht 167.6 cm; Wt 107.5 kg
[2020-06-08] MEDS ORDERED: MORPHINE SULFAT30 M4 PO (07:50)
[2020-06-08] MEDS ORDERED: COZAAR100 MG PO (07:53)
[2020-06-08] MEDS ORDERED: [UNRECOGNIZED DRUG - OTHER] PO (07:58)
[2020-06-08] MEDS ORDERED: PROTONIX40 MG PO (07:59)
[2020-06-08] MEDS ORDERED: B12 PO (08:00)
[2020-06-08] MEDS ORDERED: METOPROLOL TART25 MG PO (08:02)
[2020-06-08] MEDS ORDERED: NUEDEXTA 20-101 EACH PO (08:11)
[2020-06-08] MEDS ORDERED: NAMENDA XR28 MG PO (08:12)
[2020-06-08 08:23] VITALS: BP 119/66; Ht 167.6 cm; Wt 107.5 kg
--- NOTE | 2020-06-08 10:20 | NUR ---
1010 KARTHIKEYAN العراقي, ADMINISTERED EPHEDRINE 10MG IV
--- NOTE | 2020-06-08 16:26 | NUR ---
1025 PT ARRIVED TO ROOM 2507 WITH A LOW BLOOD PRESSURE AFTER HER PROCEDURE. KARTHIKEYAN العراقي AT BEDSIDE UNTIL B/P RETURNED TO HER PRE PROCEDURE NORMAL.
--- NOTE | 2020-06-08 16:39 | OP ---
PATIENT NAME: SHARIF GRANT MEDICAL RECORD: [id number] :[birth year] LOCATION:D.OPS ADMISSION DATE: SURGEON: JD HARRIS MD DATE OF OPERATION: 06/08/2020 SURGEON: Jd Harris MD ANESTHESIA: TIVA by Daniel oKch CRNA. DIAGNOSIS: Urge urinary incontinence. PROCEDURES: Cystoscopy and intravesical Botox injection 100 units. BLOOD LOSS: None. FINDINGS: On cystoscopy, single ureteral orifices bilaterally with no bladder tumors, trabeculated bladder. CLINICAL HISTORY: This is a 75-year-old female whom I saw in 2017 for urge urinary incontinence. At that time, I started her on Myrbetriq and she had a good response to it. In the meantime, she has developed Alzheimer's dementia. The Myrbetriq is no longer working for her. She comes now to have intravesical Botox injection. SHE IS ALLERGIC TO MULTIPLE MEDICATIONS. We gave her Levaquin IV director of recreation therapy to the OR. She was prepped with castile soap. DESCRIPTION OF PROCEDURE: The patient was given IV sedation. She was placed in the lithotomy position and prepped and draped. A 21[place] cystoscope with 30-degree lens was used for visualization. At 10 different locations excluding the ureteral orifices on the trigone. We injected 1 mL of Botox solution. Each mL had 10 units of Botox dissolved in it. This resulted in a total of 100 units of Botox. Once all the injections were done, the bladder was emptied through the scope sheath and the scope was withdrawn. I will see the patient in followup in about 1 month's time at [facility]. TRANSINT:[id number] Voice Confirmation ID: [id number] DOCUMENT ID: [id number] JD HARRIS MD at 1639 CC: [id number] DICTATION DATE: 06/08/20 0947 EXECUTIVE DIRECTOR OF MARKETING: 06/08/20 1417 [facility] [address] [place] [id number]
--- NOTE | 2020-06-08 16:42 | NUR ---
1345 PT HAS NOT BEEN ABLE TO VOID. SCANNED BLADDER AND PT HAS 249ML OF URINE IN BLADDER. NOTIFIED DR. HARRIS THAT PT CANNOT VOID AND RESULTS FROM BLADDER SCANNER. RECEIVED ORDERS TO IN AND OUT CATH PATIENT AND THEN SHE CAN GO HOME. 1425 IN AND OUT CATHED PT. 400CC CLEAR YELLOW URINE DRAINED. 1430 IV DC'D. CATHETER TIP INTACT. NO BLEEDING AT SITE. BANDAID APPLIED. 1445 REVIEWED DISCHARGE INSTRUCTIONS WITH PT AND HER . BOTH UNDERSTAND THAT THEY ARE TO RETURN TO ED IF SHE IS UNABLE TO VOID BY 2230
== END 2020-06-08 14:50 | disposition home or self-care (01) ==
LOC: D.OPS 07:15 → D.PAN 08:45 → D.OPS 08:45
PROVIDERS: Anesthesiology; ATTEND Urology
DX: N39.41 Urge incontinence (principal); J44.9 Chronic obstructive pulmonary disease, unspecified; I10 Essential (primary) hypertension

== ENCOUNTER 2020-06-14 13:45 | Outpatient (CLI) | payer MEDICARE, OTHER ==
[2020-06-08 08:23] VITALS: BMI 38.3
[~2020-06-14 13:45] MED LIST changes: +B12 PO; +COZAAR100 MG PO; +METOPROLOL TART25 MG PO; +MORPHINE SULFAT30 M4 PO; +NUEDEXTA 20-101 EACH PO; +[UNRECOGNIZED DRUG - OTHER] PO
== END 2020-06-14 14:45 | disposition home or self-care (01) ==
LOC: D.MAMMO 13:45
PROVIDERS: ATTEND Emergency Medicine
DX: Z12.31 Encounter for screening mammogram for malignant neoplasm of breast (principal)

== ENCOUNTER → 2021-01-24 08:00 | Outpatient (CLI) | payer MEDICARE, OTHER ==
[2020-11-22 21:00] VITALS: BMI 36.7
[~2021-01-24 08:00] MED LIST changes: +KEFLEX250 MG PO
== END | disposition home or self-care (01) ==
LOC: D.US 08:00
PROVIDERS: ATTEND Emergency Medicine
DX: I71.4 Abdominal aortic aneurysm, without rupture (principal)

== ENCOUNTER 2021-01-29 13:10 | Inpatient (IN) | payer MEDICARE, OTHER ==
[~2021-01-29] VITALS: Ht 167.6 cm; Wt 102.5 kg
[2021-01-29 13:42] LABS: BASOPHILS 0.1 % (0-2); EOSINOPHILS 0.5 % (0-7); HEMATOCRIT 42.3 % (36.0-48.0); IMMATURE GRANULOCYTES 0.1 % (0-5); LYMPHOCYTE ABS# 0.94 10x3/uL (1.18-3.74); MCH 29.4 pg (26.0-34.0); MCHC 30.7 g/dL (31.0-37.0); MCV 95.7 fL (80.0-100.0); NEUTROPHIL ABS# 11.27 10x3/uL (1.56-6.13); NEUTROPHILS 84.3 % (40-80); PLATELET COUNT 183 10x3/uL (130-400); RBC 4.42 10x6/uL (4.00-5.40); RDW 14.8 % (11.5-14.5); WBC 13.4 10x3/uL (4.8-10.8)
[2021-01-29 13:50] LABS: CALCIUM 9.6 mg/dL (8.5-10.1); CARBON DIOXIDE 33.8 mmol/L (21.0-32.0); CHLORIDE - SERUM 100 mmol/L (98-107); CREATININE - SERUM 1.3 mg/dL (0.6-1.3); INR 1.24 (0.85-1.17); POTASSIUM - SERUM 3.9 mmol/L (3.5-5.1); PROTIME 14.5 SECONDS (11.6-15.0); SODIUM 140 mmol/L (136-145); UREA NITROGEN 25 mg/dL (7-18); eGFR NON AFRICAN AMERICAN 42 mL/min (90-120)
[2021-01-29 13:58] LABS: CALC OSMOLALITY 283 mosm/kg (275-300); GLUCOSE 121 mg/dL (74-106)
[2021-01-29 14:18] LABS: ALBUMIN 3.1 g/dL (3.4-5.0); ALKALINE PHOSPHATASE 173 U/L (30-120); ALT (SGPT) 327 U/L (10-68); BILIRUBIN - TOTAL 0.78 mg/dL (0.2-1.3); CREATINE KINASE 97 UL (21-215); PROTEIN - SERUM 7.5 g/dL (6.4-8.2)
[2021-01-29 14:19] LABS: CKMB 0.5 U/L (0.0-3.6); TROPONIN-I < 0.016 ng/mL (0.000-0.060)
[2021-01-29 14:47] LABS: BILIRUBIN NEGATIVE (NEGATIVE); KETONE NEGATIVE (NEGATIVE); NITRITE NEGATIVE (NEGATIVE); UROBILINOGEN NORMAL mg/dL (< 2)
[2021-01-29 15:56] LABS: SARS-CoV-2 ANTIGEN NEGATIVE- SARS-COV-2 (NEGATIVE)
[2021-01-29 16:44] LABS: C-REACTIVE PROTEIN 17.3 mg/dL (0.0-0.9); THYROID STIMULATING HORMONE 0.61 uIU/mL (0.36-3.74)
--- NOTE | 2021-01-29 17:00 | NUR ---
PRIMARY NURSE NOTIFIED THAT CLARIFIED SHE HAD NOT HAD ALL MORNING MEDICATIONS, AND THAT PATIENT WAS CLEANED, AND PLACED ON A BEDPAN.
[2021-01-29 17:17] LABS: ERYTHROCYTE SEDIMENTATION RATE 38 mm/hr (0-30)
[2021-01-29 19:50] VITALS: BMI 36.5
[2021-01-29 21:01] VITALS: BP 155/99
--- NOTE | 2021-01-30 00:02 | NUR ---
PT AAOX4, PT TOLERATING 3L BNC WHICH IS HER BASELINE. SKIN INTACT. PT IS INCOTINENT OF URINE AND COTINENET OF BOWEL. PT DOES NOT REMEMBER LAST BM. BED SHEETS AND GOWN CHANGED, PUREWICK PLACED ON PT. PT C/O PAIN "ALL OVER" WILL GIVE MORE PRN PAIN MEDS WHEN ALLOWED ORDERED. PT GIVEN NEW IV IN RIGHT FOREARM. 18G IN RIGHT AC GOOD AND INTACT. PT HAS A COUGH THAT SOUNDS PRODUCTIVE, BUT STATES NOTHING IS COMING UP. EDUCATION DONE ON TURN COUGH AND DEEP BREATHING. PT VERBALIZED UNDERSTANDING
[2021-01-30 04:01] VITALS: BP 171/82
[2021-01-30 06:55] LABS: BASOPHILS 0.1 % (0-2); EOSINOPHILS 0.5 % (0-7); HEMATOCRIT 39.8 % (36.0-48.0); HEMOGLOBIN 12.5 g/dL (12-16); IMMATURE GRANULOCYTES 0.1 % (0-5); LYMPHOCYTE ABS# 0.82 10x3/uL (1.18-3.74); LYMPHOCYTES 8.9 % (15-50); MCH 29.5 pg (26.0-34.0); MCHC 31.4 g/dL (31.0-37.0); MCV 93.9 fL (80.0-100.0); MEAN PLATELET VOLUME 10.7 fL (7.4-10.4); MONOCYTES 9.4 % (2-11); NEUTROPHIL ABS# 7.45 10x3/uL (1.56-6.13); PLATELET COUNT 148 10x3/uL (130-400); RBC 4.24 10x6/uL (4.00-5.40); RDW 14.7 % (11.5-14.5)
[2021-01-30 07:17] LABS: WBC 9.2 10x3/uL (4.8-10.8)
[2021-01-30 07:26] LABS: ALBUMIN 2.8 g/dL (3.4-5.0); ANION GAP 9.8 mmol/L (8-16); BILIRUBIN - TOTAL 0.68 mg/dL (0.2-1.3); CALCIUM 8.9 mg/dL (8.5-10.1); CARBON DIOXIDE 32.7 mmol/L (21.0-32.0); MAGNESIUM - SERUM 2.3 mg/dL (1.8-2.4); PHOSPHOROUS 2.8 mg/dL (2.5-4.9); POTASSIUM - SERUM 3.5 mmol/L (3.5-5.1); PROTEIN - SERUM 7.5 g/dL (6.4-8.2)
[2021-01-30 08:27] VITALS: BP 184/99
[2021-01-30 12:10] VITALS: BP 167/79
--- NOTE | 2021-01-30 23:44 | NUR ---
INITIAL ROUNDS AND ASSESSMENT COMPLETED AT 1920 HRS. PT ALERT AND ORIENTED TO PERSON, PLACE AND TIME. ESCOBEDO. PALPABLE PERIPHERAL PULSES. IV TO RFA WITH NS AT 75CC/HR. IV PATENT. O2 4LNC. LUNGS DIMINISHED IN BASES BILAT. SR PER CM HR 83. ABD SOFT WITH ACTIVE BS NOTED. PUREWICK IN USE DRAINING CONCENTRATED URINE. SCD'S PLACED ON PT AT THAT TIME. PM MEDS GIVEN INCLUDING TYLENOL 650MG PO FOR C/O BACK PAIN. PT CURRENTLY RESTING WITH EYES CLOSED. RESP EVEN AND REGULAR. SR UP X2, CALL LIGHT WITHIN REACH.
--- NOTE | 2021-01-31 01:19 | NUR ---
PTAWAKE; DENIES ANY DISCOMFORT. SR UP X2, CALL LIGHT WITHIN REACH.
[2021-01-31 05:22] VITALS: BP 198/128
--- NOTE | 2021-01-31 06:45 | NUR ---
AM BP VERY ELEVATED. AM BP MEDS GIVEN.
[2021-01-31 07:53] LABS: BASOPHILS 0.1 % (0-2); EOSINOPHILS 0.3 % (0-7); HEMATOCRIT 43.4 % (36.0-48.0); HEMOGLOBIN 13.9 g/dL (12-16); IMMATURE GRANULOCYTES 0.2 % (0-5); LYMPHOCYTE ABS# 1.28 10x3/uL (1.18-3.74); LYMPHOCYTES 10.7 % (15-50); MCH 29.8 pg (26.0-34.0); MCV 93.1 fL (80.0-100.0); MEAN PLATELET VOLUME 11.2 fL (7.4-10.4); MONOCYTES 9.3 % (2-11); NEUTROPHIL ABS# 9.52 10x3/uL (1.56-6.13); NEUTROPHILS 79.4 % (40-80); PLATELET COUNT 182 10x3/uL (130-400); RBC 4.66 10x6/uL (4.00-5.40); RDW 14.5 % (11.5-14.5)
[2021-01-31 08:23] LABS: ALBUMIN 2.9 g/dL (3.4-5.0); ANION GAP 12.6 mmol/L (8-16); BILIRUBIN - TOTAL 0.49 mg/dL (0.2-1.3); CARBON DIOXIDE 31.5 mmol/L (21.0-32.0); MAGNESIUM - SERUM 2.4 mg/dL (1.8-2.4); PHOSPHOROUS 2.5 mg/dL (2.5-4.9); POTASSIUM - SERUM 3.1 mmol/L (3.5-5.1)
--- NOTE | 2021-01-31 09:44 | NUR ---
BP RECHECKED AT THIS TIME, IMPROVEMENT NOTED AFTER PRN MEDICATION. PT REPOSITIONED AT THIS TIME, NO FURTHER NEEDS VOICED. CLWR.
--- NOTE | 2021-01-31 11:45 | NUR ---
SPOKE WITH PT AT THIS TIME REGARDING PT PLAN OF CARE AND CONDITION. PT SPOUSE STATES APPRECIATION.
[2021-01-31 13:17] VITALS: BP 178/76
--- NOTE | 2021-01-31 16:08 | NUR ---
PATIENT WAS MOD-HIGH MOD ASST TO GET UP TO BEDSIDE. PATIENT SAT UP FOR ABOUT A MINUTE BEFORE SAYING SHE WAS VERY DIZZY AND HAD TO LAY BACK DOWN. PATIENT WAS MOD ASST TO LAY BACK IN BED.
--- NOTE | 2021-01-31 18:58 | NUR ---
pt awake alert lying in bed denies any needs, PUI isolation inplace
[2021-01-31 22:25] VITALS: BP 157/86
[2021-02-01] VITALS: BP 190/88
--- NOTE | 2021-02-01 08:37 | NUR ---
AM MEDS GIVEN AT THIS TIME WITH PRN PAIN MEDICATION. PT SITTING UP IN BED, WITH HOB RAISED. ASSISTED WITH BREAKFAST TRAY SET UP, RR EVEN NON LABORED. NO FURTHER NEEDS VOICED. CLWR.
[2021-02-01 10:01] LABS: BASOPHILS 0.2 % (0-2); EOSINOPHILS 0.7 % (0-7); HEMATOCRIT 43.9 % (36.0-48.0); HEMOGLOBIN 13.9 g/dL (12-16); IMMATURE GRANULOCYTES 0.2 % (0-5); LYMPHOCYTE ABS# 1.29 10x3/uL (1.18-3.74); LYMPHOCYTES 11.3 % (15-50); MCH 29.5 pg (26.0-34.0); MCHC 31.7 g/dL (31.0-37.0); MCV 93.2 fL (80.0-100.0); MEAN PLATELET VOLUME 11.2 fL (7.4-10.4); MONOCYTES 5.3 % (2-11); NEUTROPHIL ABS# 9.41 10x3/uL (1.56-6.13); NEUTROPHILS 82.3 % (40-80); RBC 4.71 10x6/uL (4.00-5.40); RDW 14.8 % (11.5-14.5); WBC 11.4 10x3/uL (4.8-10.8)
[2021-02-01 10:08] LABS: PLATELET COUNT 219 10x3/uL (130-400)
[2021-02-01 10:25] LABS: ALBUMIN 2.9 g/dL (3.4-5.0); BILIRUBIN - TOTAL 0.47 mg/dL (0.2-1.3); CALCIUM 8.6 mg/dL (8.5-10.1); CARBON DIOXIDE 29.1 mmol/L (21.0-32.0); CREATININE - SERUM 1.1 mg/dL (0.6-1.3); MAGNESIUM - SERUM 2.4 mg/dL (1.8-2.4); PHOSPHOROUS 2.3 mg/dL (2.5-4.9); PROTEIN - SERUM 7.7 g/dL (6.4-8.2)
[2021-02-01 10:36] LABS: ANION GAP 13.1 mmol/L (8-16); POTASSIUM - SERUM 3.2 mmol/L (3.5-5.1)
--- NOTE | 2021-02-01 13:28 | NUR ---
PT LYING IN BED WITH EYES CLOSED, RR EVEN NON LABORED, O2 IN PLACE. NO NEEDS VOICED. CLWR.
[2021-02-01 14:50] VITALS: BP 152/73
--- NOTE | 2021-02-01 15:54 | NUR ---
PATIENT WAS MOD ASST TO GET UP TO BEDSIDE. PATIENT TOLERATED SITTING UP LONGER TODAY THAN YESTERDAY DUE TO NOT FEELING DIZZY. PATIENT DID NEED ASST TO STAY SITTING UP STRAIGHT SHE WOULD LEAN BACKWARDS. PATIENT MOD ASST TO LAY BACK IN BED.
--- NOTE | 2021-02-01 18:50 | NUR ---
PT AWAKE,A LERT LYING IN BED, DENIES ANY ISSUES. WILL CONTINUE TO MONITOR
[2021-02-01 21:45] VITALS: BP 167/92
[2021-02-02 01:34] VITALS: BP 154/81
[2021-02-02 05:18] VITALS: BP 169/100
[2021-02-02 06:54] LABS: BASOPHILS 0.1 % (0-2); EOSINOPHILS 0.7 % (0-7); HEMATOCRIT 43.1 % (36.0-48.0); HEMOGLOBIN 13.4 g/dL (12-16); IMMATURE GRANULOCYTES 0.3 % (0-5); LYMPHOCYTE ABS# 1.93 10x3/uL (1.18-3.74); LYMPHOCYTES 20.5 % (15-50); MCHC 31.1 g/dL (31.0-37.0); MCV 93.3 fL (80.0-100.0); MEAN PLATELET VOLUME 10.8 fL (7.4-10.4); MONOCYTES 9.9 % (2-11); NEUTROPHIL ABS# 6.43 10x3/uL (1.56-6.13); NEUTROPHILS 68.5 % (40-80); PLATELET COUNT 197 10x3/uL (130-400); RBC 4.62 10x6/uL (4.00-5.40); RDW 14.8 % (11.5-14.5); WBC 9.4 10x3/uL (4.8-10.8)
[2021-02-02 07:07] LABS: ALBUMIN 2.7 g/dL (3.4-5.0); ANION GAP 12.8 mmol/L (8-16); BILIRUBIN - TOTAL 0.34 mg/dL (0.2-1.3); CALCIUM 8.1 mg/dL (8.5-10.1); CARBON DIOXIDE 27.6 mmol/L (21.0-32.0); MAGNESIUM - SERUM 2.5 mg/dL (1.8-2.4); PHOSPHOROUS 2.7 mg/dL (2.5-4.9); POTASSIUM - SERUM 3.4 mmol/L (3.5-5.1); PROTEIN - SERUM 7.3 g/dL (6.4-8.2)
--- NOTE | 2021-02-02 08:35 | NUR ---
AM MEDS GIVEN, PUREWICK CONTAINER EMPTIED, ASSISTED WITH BREAKFAST TRAY SET UP. RR EVEN NON LABORED, NON PRODUCTIVE COUGH NOTED. NO FURTHER NEEDS VOICED. CLWR.
[2021-02-02] MEDS ORDERED: LEVAQUIN750 MG PO (11:15)
[2021-02-02] MEDS ORDERED: PREDNISONE10 MG PO (11:16)
--- NOTE | 2021-02-02 11:45 | NUR ---
SPOKE WITH PT AT BEDSIDE REGARDING PLAN TO D/C. PT IS APPREHENSIVE FOR PT TO GO HOME, REQUEST TO SPEAK WITH PROVIDER. NOTIFIED [facility] TRIPATHI. PT WILL BE EVAL'D FOR INPATIENT REHAB.
[2021-02-02 11:46] VITALS: BP 173/81
--- NOTE | 2021-02-02 13:50 | NUR ---
REHAB PRESCREEN RECEIVED. PHYSICAL THERAPY HAS SIGNED OFF TO [facility] THEY FEEL THERE IS NO SKILLED NEED THERE AND PATIENT IS AT OR CLOSE TO BASELINE. OCCUPATIONAL THERAPY AND SPEECH THERAPY IS PENDING. I HAVE TALKED WITH THE PATIENT AND HER SPOUSE. PATIENT HAS BEEN WHEELCHAIR BOUND SINCE 2006 AND UNABLE TO SELF PROPEL. SHE IS RELIANT ON HER SPOUSE FOR ALL TRANSFERS WITH A GAIT BELT. SHE CAN FEED HERSELF, BUT DOES NOT HAVE THE STRENGTH TO DO MUCH PHYSICAL ACTIVITY WITH HER ARMS. SHE HAS BEEN IN OUR REHAB UNIT TWICE BEFORE, LASTING LESS THAN 24 HOURS THE FIRST TIME AND LESS THAN 48 HOURS THE SECOND TIME BEFORE CALLING HER SPOUSE TO COME AND GET HER. SHE HAS STATED THAT SHE DOES NOT LIKE OCCUPATIONAL THERAPY, BUT WOULD BE WILLING TO GIVE IT A TRY. WE HAVE DISCUSSED THAT IF SHE COMES TO REHAB, SHE WOULD HAVE TO STAY AT LEAST 4 MIDNIGHTS. SHE STATED SHE WOULD. I HAVE EXPLAINED THAT I WOULD HAVE TO WAIT ON THE THERAPY RECOMMENDATIONS AND THEN PRESENT HER TO MY PHYSICIAN FOR APPROVAL. I HAVE BEEN HONEST AND TOLD THEM THAT I AM NOT SEEING THE NEED FOR THE 3 HOURS OF THERAPY AT THIS TIME, BUT I WOULD KEEP AN EYE ON HER CHART TO SEE WHAT THERAPY SAYS. SPOUSE IS THANKFUL. THANK YOU FOR THE REFERRAL. YA THOMAS RN CLINICAL LIAISON, INPATIENT REHAB.
--- NOTE | 2021-02-02 14:29 | NUR ---
THERAPY EVALED PT AT THIS TIME. PUREWICK REMOVED PER REQUST OF SPOUSE. PT DENIES ANY NEEDS AT THIS TIME. CLWR.
--- NOTE | 2021-02-02 15:01 | NUR ---
PATIENT ON COMMODE FROM OT SESSION. ASSISTED PATIENT TO STAND WITH MOD ASST, SHE WAS UNSTEADY DURING STANDING. PATIENT WAS ABLE TO TAKE A FEW SMALL STEPS BACK TOWARDS BED AND ALONG BEDSIDE FOR 3 FEET WITH MOD ASST USING WALKER.
--- NOTE | 2021-02-02 18:50 | NUR ---
pt awake, alert, lying in bed denies any issues.
[2021-02-02 20:37] VITALS: BP 175/94
[2021-02-03 00:53] VITALS: BP 185/111
[2021-02-03 05:35] VITALS: BP 198/111
[2021-02-03 07:24] LABS: BASOPHILS 0.1 % (0-2); EOSINOPHILS 0.7 % (0-7); HEMATOCRIT 46.7 % (36.0-48.0); HEMOGLOBIN 14.8 g/dL (12-16); IMMATURE GRANULOCYTES 0.4 % (0-5); LYMPHOCYTE ABS# 2.08 10x3/uL (1.18-3.74); LYMPHOCYTES 15.1 % (15-50); MCH 29.2 pg (26.0-34.0); MCHC 31.7 g/dL (31.0-37.0); MCV 92.3 fL (80.0-100.0); MEAN PLATELET VOLUME 10.8 fL (7.4-10.4); MONOCYTES 10.1 % (2-11); NEUTROPHIL ABS# 10.13 10x3/uL (1.56-6.13); NEUTROPHILS 73.6 % (40-80); RBC 5.06 10x6/uL (4.00-5.40); RDW 14.7 % (11.5-14.5)
[2021-02-03 07:25] LABS: PLATELET COUNT 244 10x3/uL (130-400); WBC 13.8 10x3/uL (4.8-10.8)
[2021-02-03 07:46] LABS: ANION GAP 13.6 mmol/L (8-16); BILIRUBIN - TOTAL 0.46 mg/dL (0.2-1.3); CALCIUM 8.6 mg/dL (8.5-10.1); CARBON DIOXIDE 26.5 mmol/L (21.0-32.0); CREATININE - SERUM 0.9 mg/dL (0.6-1.3); MAGNESIUM - SERUM 2.3 mg/dL (1.8-2.4); PHOSPHOROUS 2.5 mg/dL (2.5-4.9); POTASSIUM - SERUM 3.1 mmol/L (3.5-5.1); PROTEIN - SERUM 8.1 g/dL (6.4-8.2)
--- NOTE | 2021-02-03 10:23 | NUR ---
PRESCREEN FOLLOW UP. PATIENT UNFORTUNATELY APPEARS TO BE AT OR CLOSE TO HER BASELINE AND IS NOT SHOWING THE NEED FOR 3 HOURS OF THERAPY AT LEAST 5 DAYS A WEEK. SHE MAY BE MORE APPROPRIATE FOR A SNF. THANK YOU FOR THIS REFERRAL. YA THOMAS RN CLINICAL LIAISON, INPATIENT REHAB.
--- NOTE | 2021-02-03 11:08 | NUR ---
PATIENT AAOX2 SITTING IN BEDSIDE CHAIR, RESP EVEN AND NON LABORED, NO S/S OF DISTRESS, MEDICATIONS ADMINISTERED WITH NO COMPLICATIONS, NO FURTHER NEEDS AT THIS TIME, CLIR, VICTORINOP
[2021-02-03 11:26] VITALS: BP 160/100
--- NOTE | 2021-02-03 13:53 | NUR ---
mod to sob and to stand wants to lean back while moving needed mod assit with helpto bsc than chair
--- NOTE | 2021-02-03 14:04 | NUR ---
PATIENTS STATED HER TREMORS ARE GETTING WORSE AND WANTS DR. CLAROS OR MARY NICHOLS TO BE NOTIFIED, NO FURTHER NEEDS AT THIS TIME, JERONIMO ALVARES
[2021-02-03 15:49] VITALS: BP 116/76
--- NOTE | 2021-02-03 16:16 | NUR ---
OT NOTE: PT COMPLETED SUPINE TO SIT WITH MOD A. PT COMPLETED SIT TO STAND WITH MOD A. PT COMPLETED BED TO BSC WITH MIN-MOD A. PT COMPLETED TOILETING HYGIENE WITH MAX A. REPORTED TO NURSING PT HAD A BM. PT COMPLETED HAND HYGIENE WITH SETUP. [phone] NELDA KANG COTA
[2021-02-03 19:32] VITALS: BP 200/108
[2021-02-04 00:13] VITALS: BP 127/69
--- NOTE | 2021-02-04 03:34 | MORECARE ---
CASE MANAGEMENT DISCHARGE SUMMARY PATIENT: SHARIF GRANT UNIT: [id number] ADM DATE: 01/29/21 AGE: 75 : 45 SEX: F ROOM/BED: D.8225 AUTHOR: LLUVIA,DOC PHYSICIAN: REFERRING PHYSICIAN: ALVARO MACHADO MD DATE OF SERVICE: 02/04/21 Case Management Discharge Planning Summary COMMENTS ENTERED DATE: 02/04/21 2:44 CT COMMENT TYPE: Discharge Planning REVIEWER: Janice Seymour 02/02/21 CM notified that patient / spouse wants to go to inpatient rehab at [facility] - rehab prescreen ordered and OT and ST evals pending 02/03/21 CM notified that patient was denied inpatient rehab at [facility] she didn't meet criteria. CM plans to discuss with family about possibly [facility] / SNF DCP REVIEW SUMMARY ANTICIPATED D/C DATE: EXPECTED LOS : CASE STATUS: DCP Initiated INITIAL REVIEW: 01/29/2021 INITIAL REVIEWER: Janice Seymour FINAL DISCHARGE DISPOSITION: : FINAL REVIEWER: FINAL REVIEW DATE: DCP Focus Questions & Answers QUESTION: ANSWER : PATIENT: SHARIF GRANT ENCOUNTER: [id number] MEDICAL RECORD#: [id number] ADMISSION DATE: 01/29/2021 DISCHARGE DATE: ATTENDING MD: JANEE: AGE: 75 MARITAL STATUS: M DC PLAN ID: [id number] FACILITY: [facility] PRINTED ON: 02/04/21 3:30 CT All edits/amendments must be made on the electronic document DICTATION DATE: 02/04/21329 ARABIC LINGUIST: SALLIE 02/04/21329 RPT#: [id number] DC DATE: STATUS: ADM IN [facility] [address] [place] [address] END OF REPORT
[2021-02-04 04:40] VITALS: BP 147/83
--- NOTE | 2021-02-04 04:52 | NUR ---
I have reviewed this patient and I concur with the Shift Assessment completed by the Licensed Practical Nurse today this shift.
[2021-02-04 06:23] LABS: BASOPHILS 0.1 % (0-2); EOSINOPHILS 0.5 % (0-7); HEMOGLOBIN 14.6 g/dL (12-16); IMMATURE GRANULOCYTES 0.3 % (0-5); LYMPHOCYTE ABS# 2.12 10x3/uL (1.18-3.74); LYMPHOCYTES 14.9 % (15-50); MCH 29.3 pg (26.0-34.0); MCHC 31.7 g/dL (31.0-37.0); MCV 92.4 fL (80.0-100.0); MEAN PLATELET VOLUME 10.8 fL (7.4-10.4); MONOCYTES 9.1 % (2-11); NEUTROPHILS 75.1 % (40-80); PLATELET COUNT 245 10x3/uL (130-400); RBC 4.98 10x6/uL (4.00-5.40); RDW 15.2 % (11.5-14.5); WBC 14.2 10x3/uL (4.8-10.8)
[2021-02-04 06:34] LABS: ALBUMIN 2.9 g/dL (3.4-5.0); ANION GAP 12.8 mmol/L (8-16); BILIRUBIN - TOTAL 0.43 mg/dL (0.2-1.3); CALCIUM 8.7 mg/dL (8.5-10.1); CARBON DIOXIDE 27.6 mmol/L (21.0-32.0); POTASSIUM - SERUM 3.4 mmol/L (3.5-5.1); PROTEIN - SERUM 7.6 g/dL (6.4-8.2)
[2021-02-04 07:00] LABS: CREATININE - SERUM 1.2 mg/dL (0.6-1.3)
--- NOTE | 2021-02-04 09:49 | NUR ---
PATIENT AAOX4, RESP EVEN AND NON LABORED, NO S/S OF DISTRESS, SITTING HIGH FOLWERS IN BED EATING BREAKFAST, ALL MEDICATIONS ADMINISTERED WITH NO COMPLICATIONS, HAND TREMORS HAVE IMPROVED SINCE YESTERDAY, NO FURTHER NEEDS AT THIS TIME, JERONIMO ALVARES
[2021-02-04 13:56] VITALS: Ht 167.6 cm; Wt 102.5 kg
--- NOTE | 2021-02-04 15:15 | NUR ---
OT NOTE: PT COMPLETED SUPINE TO SIT WITH MIN-MOD A. PT COMPLETED SIT TO STAND WITH MOD A. PT COMPLETED BED TO BSC WITH MOD A USING RW. PT COMPLETED CLOTHING MANAGEMENT WITH MOD A. PT COMPLETED TOILET HYGIENE WITH MOD A. [phone] NELDA KANG COTA
--- NOTE | 2021-02-04 17:11 | NUR ---
TELEMETRY REMOVED. RETURNED TO TELE ROOM. IV REMOVED.
--- NOTE | 2021-02-04 18:25 | NUR ---
PATIENT DISCHARGED WITH [facility] VIA STRETCHER WITH NO COMPLICATIONS
--- NOTE | 2021-02-04 18:35 | MORECARE ---
CASE MANAGEMENT DISCHARGE SUMMARY PATIENT: SHARIF GRANT UNIT: [id number] ADM DATE: 01/29/21 AGE: 75 : 45 SEX: F ROOM/BED: D.1695 AUTHOR: LLUVIA,DOC PHYSICIAN: REFERRING PHYSICIAN: ALVARO MACHADO MD DATE OF SERVICE: 02/04/21 Case Management Discharge Planning Summary COMMENTS ENTERED DATE: 02/04/21 2:44 CT COMMENT TYPE: Discharge Planning REVIEWER: Janice Seymour 02/02/21 CM notified that patient / spouse wants to go to inpatient rehab at [facility] - rehab prescreen ordered and OT and ST evals pending 02/03/21 CM notified that patient was denied inpatient rehab at [facility] she didn't meet criteria. CM plans to discuss with family about possibly [facility] / SNF DCP REVIEW SUMMARY ANTICIPATED D/C DATE: EXPECTED LOS : CASE STATUS: DCP Initiated INITIAL REVIEW: 01/29/2021 INITIAL REVIEWER: Janice Seymour FINAL DISCHARGE DISPOSITION: : FINAL REVIEWER: FINAL REVIEW DATE: DCP Focus Questions & Answers QUESTION: ANSWER : PATIENT: SHARIF GRANT ENCOUNTER: [id number] MEDICAL RECORD#: [id number] ADMISSION DATE: 01/29/2021 DISCHARGE DATE: 02/04/2021 ATTENDING MD: JANEE: AGE: 75 MARITAL STATUS: M DC PLAN ID: [id number] FACILITY: [facility] PRINTED ON: 02/04/21 18:35 CT All edits/amendments must be made on the electronic document DICTATION DATE: 02/04/211834 CUSTODIAL OPERATIONS MANAGER: SALLIE 02/04/211834 RPT#: [id number] DC DATE:02/04/21 STATUS: DIS IN [facility] [address] [place] [address] END OF REPORT
--- NOTE | 2021-02-04 18:47 | MORECARE ---
CASE MANAGEMENT DISCHARGE SUMMARY PATIENT: SHARIF GRANT UNIT: [id number] ADM DATE: 01/29/21 AGE: 75 : 45 SEX: F ROOM/BED: D.8095 AUTHOR: LLUVIA,DOC PHYSICIAN: REFERRING PHYSICIAN: ALVARO MACHADO MD DATE OF SERVICE: 02/04/21 Case Management Discharge Planning Summary COMMENTS ENTERED DATE: 02/04/21 18:42 CT COMMENT TYPE: Discharge Planning REVIEWER: Sahra Hayes CM met earlier in the day with patient and spouse. They are both in agreement to go to [facility] rehab, XUAN signed by . He states she is completely dependent on him for bathing, dressing, transfers. States he has [employer] come in 3 hours twice a week to help out. I have faxed clinical to [facility] rehab, they have accepted and are calling an ambulance for transport. To Inpatient rehab today at [facility]. ENTERED DATE: 02/04/21 2:44 CT COMMENT TYPE: Discharge Planning REVIEWER: Janice Seymour 02/02/21 CM notified that patient / spouse wants to go to inpatient rehab at [facility] - rehab prescreen ordered and OT and ST marychuyals pending 02/03/21 CM notified that patient was denied inpatient rehab at [facility] she didn't meet criteria. CM plans to discuss with family about possibly [facility] / SNF DCP REVIEW SUMMARY ANTICIPATED D/C DATE: EXPECTED LOS : CASE STATUS: DCP Initiated INITIAL REVIEW: 01/29/2021 INITIAL REVIEWER: Janice Seymour FINAL DISCHARGE DISPOSITION: : FINAL REVIEWER: FINAL REVIEW DATE: DCP Focus Questions & Answers DCP Evaluation QUESTION: ANSWER Patient's ability to cope with chronic illness : a. Adequate (0-3 ED visits in 6 mos., adequate financial resources, attends scheduled appts.) Living Arrangements: : Home with Spouse/Significant Other Pharmacy name(s): : [facility] is [facility] Would patient like to participate in any Care Coordination programs (if applicable): : Not applicable Does the patient have electricity at home? : Yes Does the patient have running water in their house? : Yes Equipment in use: : Bedside Commode Equipment in use: : Home Oxygen with Nasal Cannula Equipment in use: : Nebulizer Equipment in use: : Other Equipment in use: : Walker - Rolling Equipment in use: : Wheelchair Other Equipment comments: : Lift chair Portable oxygen walk in bathtub Equipment agency name and contact information: : [facility] Mental health screen: : No mental health history Resources / Services in place: : Private duty care [facility] Re-evaluation QUESTION: ANSWER Would patient like to participate in any Care Coordination programs (if applicable): : Not applicable PATIENT: SHARIF GRANT ENCOUNTER: [id number] MEDICAL RECORD#: [id number] ADMISSION DATE: 01/29/2021 DISCHARGE DATE: 02/04/2021 ATTENDING MD: JANEE: [id number]-[id number] AGE: 75 MARITAL STATUS: M DC PLAN ID: [id number] FACILITY: [facility] PRINTED ON: 02/04/21 18:47 CT All edits/amendments must be made on the electronic document DICTATION DATE: 02/04/211846 LEAD SECTION SUPERVISOR: SALLIE 02/04/211846 RPT#: [id number] DC DATE:02/04/21 STATUS: DIS IN [facility] [address] [place] [address] END OF REPORT
--- NOTE | 2021-02-13 17:03 | MORECARE ---
CASE MANAGEMENT DISCHARGE SUMMARY PATIENT: SHARIF GRANT UNIT: [id number] ADM DATE: 01/29/21 AGE: 75 : 45 SEX: F ROOM/BED: D.9087 AUTHOR: LLUVIA,DOC PHYSICIAN: REFERRING PHYSICIAN: ALVARO MACHADO MD DATE OF SERVICE: 02/13/21 Case Management Discharge Planning Summary COMMENTS ENTERED DATE: 02/04/21 18:42 CT COMMENT TYPE: Discharge Planning REVIEWER: Sahra Hayes CM met earlier in the day with patient and spouse. They are both in agreement to go to [facility] rehab, XUAN signed by . He states she is completely dependent on him for bathing, dressing, transfers. States he has [employer] come in 3 hours twice a week to help out. I have faxed clinical to [facility] rehab, they have accepted and are calling an ambulance for transport. To Inpatient rehab today at [facility]. ENTERED DATE: 02/04/21 2:44 CT COMMENT TYPE: Discharge Planning REVIEWER: Janice Seymour 02/02/21 CM notified that patient / spouse wants to go to inpatient rehab at [facility] - rehab prescreen ordered and OT and ST marychuyals pending 02/03/21 CM notified that patient was denied inpatient rehab at [facility] she didn't meet criteria. CM plans to discuss with family about possibly [facility] / SNF DCP REVIEW SUMMARY ANTICIPATED D/C DATE: EXPECTED LOS : CASE STATUS: DCP Initiated INITIAL REVIEW: 01/29/2021 INITIAL REVIEWER: Janice Seymour FINAL DISCHARGE DISPOSITION: : FINAL REVIEWER: FINAL REVIEW DATE: DCP Focus Questions & Answers DCP Evaluation QUESTION: ANSWER Patient's ability to cope with chronic illness : a. Adequate (0-3 ED visits in 6 mos., adequate financial resources, attends scheduled appts.) Living Arrangements: : Home with Spouse/Significant Other Pharmacy name(s): : [facility] is [facility] Would patient like to participate in any Care Coordination programs (if applicable): : Not applicable Does the patient have electricity at home? : Yes Does the patient have running water in their house? : Yes Equipment in use: : Bedside Commode Equipment in use: : Home Oxygen with Nasal Cannula Equipment in use: : Nebulizer Equipment in use: : Other Equipment in use: : Walker - Rolling Equipment in use: : Wheelchair Other Equipment comments: : Lift chair Portable oxygen walk in bathtub Equipment agency name and contact information: : [facility] Mental health screen: : No mental health history Resources / Services in place: : Private duty care [facility] Re-evaluation QUESTION: ANSWER Would patient like to participate in any Care Coordination programs (if applicable): : Not applicable PATIENT: SHARIF GRANT ENCOUNTER: [id number] MEDICAL RECORD#: [id number] ADMISSION DATE: 01/29/2021 DISCHARGE DATE: 02/04/2021 ATTENDING MD: JANEE: [id number] AGE: 75 MARITAL STATUS: M DC PLAN ID: [id number] FACILITY: [facility] PRINTED ON: 02/13/21 17:03 CT All edits/amendments must be made on the electronic document DICTATION DATE: 02/13/211702 TOOL STRAIGHTENER: SALLIE 02/13/211702 RPT#: [id number] DC DATE:02/04/21 STATUS: DIS IN [facility] [address] [place] [address] END OF REPORT
== END 2021-02-04 18:27 | DRG 194 ==
LOC: D.ER 13:10 → D.M2 15:28
PROVIDERS: Family Medicine; ADMIT Family Medicine; ATTEND Family Medicine
DX: J18.9 Pneumonia, unspecified organism (principal); J44.1 Chronic obstructive pulmonary disease with (acute) exacerbation; J44.0 Chronic obstructive pulmonary disease with (acute) lower respiratory infection; I50.32 Chronic diastolic (congestive) heart failure; Z20.822 Contact with and (suspected) exposure to COVID-19; F03.90 Unspecified dementia, unspecified severity, without behavioral disturbance, psychotic disturbance, mood disturbance, and anxiety; G70.00 Myasthenia gravis without (acute) exacerbation; I25.10 Atherosclerotic heart disease of native coronary artery without angina pectoris; E78.5 Hyperlipidemia, unspecified; E03.9 Hypothyroidism, unspecified; Z99.81 Dependence on supplemental oxygen; F41.8 Other specified anxiety disorders; K21.9 Gastro-esophageal reflux disease without esophagitis; D64.9 Anemia, unspecified; Z86.73 Personal history of transient ischemic attack (TIA), and cerebral infarction without residual deficits; Z87.891 Personal history of nicotine dependence